=== PATIENT | female | born 1945 | race Hispanic/Latino ===

== ENCOUNTER 2016-08-16 08:51 | Inpatient (IN) | payer MEDICARE, BC ==
--- NOTE | 2016-08-16 09:07 | ED PDOC ---
Arrival/HPI - General Time Seen by Provider: 08/16/16 08:52 Historian: Patient - History of Present Illness Narrative History of Present Illness (Text): 08/16/16 09:06 This 70 yo female with pmh diverticulitis, renal stone, presents to this ED c/o left flank pain x 7 days. Patient stated pain started left upper flank pain, but it has radiated to her left pelvis. Patient noted mild soft BM. Denies fever, rectal bleeding, sob, cp, rash, or urinary symptoms. Time/Duration: 1 week Quality: Aching Context: Home Past Medical History - Provider Review Nursing Documentation Reviewed: Yes - Tetanus Immunization Tetanus Immunization: Unknown - Cardiac Hx Pacemaker: No - Pulmonary Hx Chronic Obstructive Pulmonary Disease (COPD): Yes - Neurological Hx Paralysis: No - Hematological/Oncological Hx Blood Transfusions: No Hx Blood Transfusion Reaction: No - Musculoskeletal/Rheumatological Hx Musculoskeletal Disorders: Yes (RA) - Psychiatric Hx Emotional Abuse: No Hx Physical Abuse: No Hx Substance Use: No - Surgical History Hx Orthopedic Surgery: Yes (rt knee replacement) - Anesthesia Hx Anesthesia Reactions: No Hx Malignant Hyperthermia: No - Suicidal Assessment Feels Threatened In Home Enviroment: No Family/Social History - Physician Review Nursing Documentation Reviewed: Yes Family/Social History: No Known Family HX Smoking Status: Former Smoker Hx Alcohol Use: No Hx Substance Use: No Hx Substance Use Treatment: No Allergies/Home Meds Allergies/Adverse Reactions: Allergies ciprofloxacin [From Cipro] Allergy (Verified 08/16/16 14:38) RASH ciprofloxacin HCl [From Cipro] Allergy (Verified 08/16/16 14:38) RASH FISH Allergy (Verified 08/16/16 14:38) ANAPHYLAXIS iodine Allergy (Verified 08/16/16 14:38) ANAPHYLAXIS levofloxacin Allergy (Verified 08/16/16 14:38) ANAPHYLAXIS Penicillins Allergy (Verified 08/16/16 14:38) ANAPHYLAXIS shellfish derived Allergy (Verified 08/16/16 14:38) ANAPHYLAXIS Home Medications: Home Meds Medication Instructions Recorded Confirmed Tofacitinib Citrate [Xeljanz] 5 mg PO BID 10/19/13 08/16/16 Beclomethasone Dipropionate [Qvar 2 puff IH BID 08/16/16 08/16/16 80 mcg] Levalbuterol Tartrate [Xopenex Hfa] 2 puff IH QID 08/16/16 08/16/16 Levothyroxine [Synthroid] 112 mcg PO DAILY 08/16/16 08/16/16 Metoprolol Succinate 50 mg PO DAILY 08/16/16 08/16/16 Review of Systems - Review of Systems Constitutional: Normal. absent: Fatigue, Weight Change, Fevers Eyes: Normal ENT: Normal Respiratory: Normal Cardiovascular: Normal Gastrointestinal: Abdominal Pain, Diarrhea, Nausea. absent: Vomiting Genitourinary Female: Normal. absent: Dysuria, Frequency, Hematuria, Vaginal Bleeding, Vaginal Discharge Musculoskeletal: Normal. absent: Back Pain Skin: Normal Neurological: Normal Endocrine: Normal Hemo/Lymphatic: Normal Psychiatric: Normal Physical Exam Vital Signs Temp Pulse Resp BP Pulse Ox 08/16/16 13:17 102 H 18 142/74 98 08/16/16 12:38 102 H 142/74 08/16/16 09:04 97.7 F 104 H 18 142/113 H 99 Temperature: Afebrile Blood Pressure: Hypertensive Pulse: Tachycardic Respiratory Rate: Normal Appearance: Positive for: Well-Appearing, Non-Toxic, Comfortable Pain Distress: None Mental Status: Positive for: Alert and Oriented X 3 - Systems Exam Head: Present: Atraumatic, Normocephalic Pupils: Present: PERRL Extroacular Muscles: Present: EOMI Conjunctiva: Present: Normal Mouth: Present: Moist Mucous Membranes Neck: Present: Normal Range of Motion Respiratory/Chest: Present: Clear to Auscultation, Good Air Exchange. No: Respiratory Distress, Accessory Muscle Use Cardiovascular: Present: Regular Rate and Rhythm, Normal S1, S2. No: Murmurs Abdomen: Present: Tenderness ((+) mild LLQ tenderness), Normal Bowel Sounds. No : Distention, Peritoneal Signs, Rebound, Guarding, McBurney's Point Tender, Rovsing's Sign Present Back: Present: Normal Inspection. No: CVA Tenderness Upper Extremity: Present: Normal Inspection, Normal ROM, NORMAL PULSES, Neurovascularly Intact, Capillary Refill < 2s. No: Cyanosis, Edema Lower Extremity: Present: Normal Inspection, NORMAL PULSES, Normal ROM, Neurovascularly Intact, Capillary Refill < 2 s. No: Edema, CALF TENDERNESS Neurological: Present: GCS=15, CN II-XII Intact, Speech Normal, Motor Func Grossly Intact, Normal Sensory Function, Normal Cerebellar Funct, Norm Deep Tendon Reflexes, Gait Normal, Memory Normal Skin: Present: Warm, Dry, Normal Color. No: Rashes Psychiatric: Present: Alert, Oriented x 3, Normal Insight, Normal Concentration Medical Decision Making ED Course and Treatment: 08/16/16 12:[address] Lovelace Hospitalist who agrees with plan for admission. He is aware patient has allergies to PCN, and fluroquinolones Re-evaluation Time: 12:06 Reassessment Condition: Re-examined, Improving,but remains with symptoms - Lab Interpretations Lab Results: 08/16/16 09:51 08/16/16 09:51 Lab Results 08/16/16 09:51: WBC 9.6 D, RBC 4.60, Hgb 13.9, Hct 40.5, MCV 88.0, MCH 30.2, MCHC 34.3, RDW 13.3, Plt Count 359, MPV 9.5, Gran % 80.2 H, Lymph % (Auto) 11.2 L, [place] % (Auto) 6.7 H, Eos % (Auto) 1.7, Baso % (Auto) 0.2, Gran # 7.70 H, Lymph # 1.1 L, [place] # 0.6, Eos # 0.2, Baso # 0.02, Sodium 143, Potassium 3.8, Chloride 103, Carbon Dioxide 28, Anion Gap 16, BUN 12, Creatinine 0.7, Est GFR ( Amer) > 60, Est GFR (Non-Af Amer) > 60, Random Glucose 127 H, Calcium 10.2, Total Bilirubin 0.6, AST 27, ALT 30, Alkaline Phosphatase 95, Total Protein 8.2, Albumin 4.3, Globulin 3.9, Albumin/Globulin Ratio 1.1, Lipase 54 08/16/16 09:45: Urine Color Yellow, Urine Appearance Clear, Urine pH 6.5, Ur Specific [place] 1.020, Urine Protein Negative, Urine Glucose (UA) Negative, Urine Ketones Negative, Urine Blood Trace-intact H, Urine Nitrate Negative, Urine Bilirubin Negative, Urine Urobilinogen 0.2, Ur Leukocyte Esterase Trace H , Urine RBC 0 - 2, Urine WBC 0 - 2, Ur Epithelial Cells 1 - 3 I have reviewed the lab results: Yes Interpretation: No clinic. lab abnormalty - RAD Interpretation Narrative RAD Interpretations (Text): 08/16/16 11:33 Accession No. : [id number] Patient Name / ID : GABRIELA HARRISON / [id number] Exam Date : 08/16/2016 10:17:37 ( Approved ) Study Comment : Sex / Age : F / [id number] Creator : Moy Alfred MD Dictator : Moy Alfred MD Experimental Machinist : Youth Specialist : Moy Alfred MD Approver2 : Report Date : 08/16/2016 11:10:13 My Comment : PROCEDURE: CT Abdomen and Pelvis without intravenous contrast HISTORY: left flank pain COMPARISON: None. TECHNIQUE: Without contrast.. Contrast Dose: Radiation dose: Total exam DLP = 907 mGy-cm. This CT exam was performed using one or more of the following dose reduction techniques: Automated exposure control, adjustment of the mA and/or kV according to patient size, and/or use of iterative reconstruction technique. FINDINGS: LOWER THORAX: Unremarkable. LIVER: Unremarkable. No gross lesion or ductal dilatation. GALLBLADDER AND BILE DUCTS: Unremarkable. PANCREAS: Unremarkable. No gross lesion or ductal dilatation. SPLEEN: Unremarkable. ADRENALS: Unremarkable. No mass. KIDNEYS AND URETERS: Unremarkable. No hydronephrosis. No solid mass. VASCULATURE: Unremarkable. No aortic aneurysm. BOWEL: There is acute diverticulitis of the sigmoid colon. Inflammatory changes are seen in the adjacent fat planes. Finding is best seen on image 131. There is no evidence of abscess or free air. APPENDIX: Unremarkable. Normal appendix. PERITONEUM: Unremarkable. No free fluid. No free air. LYMPH NODES: Unremarkable. No enlarged lymph nodes. BLADDER: Unremarkable. REPRODUCTIVE: There is a fatty density mass in the left side of the pelvis measuring 5.1 x 6.5 cm. This is consistent with a dermoid. BONES: No acute fracture. OTHER FINDINGS: None. IMPRESSION: Acute diverticulitis of the sigmoid colon Left-sided dermoid 08/16/16 11:42 Radiology Orders: 08/16/16 09:22 ABD & PELVIS W/O PO OR IV CONT [CT] Stat 08/16/16 11:41 CHEST PORTABLE [RAD] Stat - EKG Interpretation Interpreted by ED Physician: Yes (NSR @ [address] changes) Type: 12 lead EKG Comparison: No previous EKG avail. - Medication Orders Current Medication Orders: Acetaminophen (Tylenol 325mg Tab) 650 mg PO Q6 PRN PRN Reason: Pain, moderate (4-7) Acetaminophen (Tylenol 325mg Tab) 650 mg PO Q6 PRN PRN Reason: Fever >100.4 F Albuterol/Ipratropium (Duoneb 3 Mg/0.5 Mg (3 Ml) Ud) 3 ml IH [id number] PRN PRN Reason: Shortness of Breath Sodium Chloride (Sodium Chloride 0.45%) 1,000 mls @ 100 mls/hr IV .Q10H CLAUDINE Last Admin: 08/17/16 13:11 Dose: 100 MLS/HR eMAR Start Stop Document 08/17/16 13:11 SD (Rec: 08/17/16 13:11 SD [id number]) Intravenous Solution Start Date 08/17/16 Start Time 13:11 Aztreonam (Azactam 1 Gm) 100 mls @ 100 mls/hr IVPB Q8 CLAUDINE PRN Reason: Protocol Stop: 08/22/16 22:59 Last Admin: 08/18/16 05:16 Dose: 100 MLS/HR eMAR Start Stop Document 08/18/16 05:16 IMT (Rec: 08/18/16 05:17 [facility] Intravenous Solution Start Date 08/18/16 Start Time 05:17 End Date 08/18/16 End time 06:17 Total Infusion Time 60 Metronidazole (Flagyl) 100 mls @ 100 mls/hr IVPB Q8 CLAUDINE PRN Reason: Protocol Last Admin: 08/18/16 06:34 Dose: 100 MLS/HR eMAR Start Stop Document 08/18/16 06:34 IMT (Rec: 08/18/16 06:34 [facility] Intravenous Solution Start Date 08/18/16 Start Time 06:34 End Date 08/18/16 End time 07:34 Total Infusion Time 60 Insulin Human Lispro (Humalog Low) 0 units SC ACHS CLAUDINE PRN Reason: Protocol Last Admin: 08/18/16 11:33 Dose: Not Given Non-Admin Reason: Blood Sugar Parameter MAR Blood Glucose Document 08/18/16 11:33 SD (Rec: 08/18/16 11:33 SD [id number]) Blood Glucose Finger Stick Blood Glucose (70-120) 89 Levothyroxine Sodium (Synthroid) 112 mcg PO DAILY [facility] Last Admin: 08/18/16 09:49 Dose: 112 MCG Metoprolol Succinate (Toprol Xl) 50 mg PO DAILY [facility] Last Admin: 08/18/16 09:49 Dose: 50 MG MAR Pulse and Blood Pressure Document 08/18/16 09:49 SD (Rec: 08/18/16 09:49 SD [id number]) Pulse Pulse Rate (60-90) 78 Blood Pressure Blood Pressure (100/60-150/90) 108/61 Morphine Sulfate (Morphine) 2 mg IVP Q4H PRN PRN Reason: Pain, severe (8-10) Non-Formulary Medication (Beclomethasone Dipropionate [Qvar 80 Mcg]) 2 puff IH BID [facility] Last Admin: 08/18/16 09:46 Dose: Non-Formulary Medication (Levalbuterol Tartrate [Xopenex Hfa]) 2 puff IH QID [facility] Last Admin: 08/18/16 09:47 Dose: Non-Formulary Medication (Tofacitinib Citrate [Xeljanz]) 5 mg PO BID [facility] Last Admin: 08/18/16 10:02 Dose: 5 MG Ondansetron HCl (Zofran Inj) 4 mg IVP Q6 PRN PRN Reason: Nausea/Vomiting Pantoprazole Sodium (Protonix Ec Tab) 40 mg PO 0730,1630 [facility] Last Admin: 08/18/16 08:24 Dose: 40 MG Discontinued Medications Sodium Chloride (Sodium Chloride 0.9%) 500 mls @ 999 mls/hr IV .Q31M STA Stop: 08/16/16 09:53 Last Admin: 08/16/16 10:02 Dose: 999 MLS/HR eMAR Start Stop Document 08/16/16 10:02 SS (Rec: 08/16/16 10:37 SS [id number]) Intravenous Solution Start Date 08/16/16 Start Time 10:37 End Date 08/16/16 End time 11:07 Total Infusion Time 30 Metronidazole (Flagyl) 100 mls @ 100 mls/hr IVPB STAT STA PRN Reason: Protocol Stop: 08/16/16 12:39 Last Admin: 08/16/16 12:35 Dose: 100 MLS/HR eMAR Start Stop Document 08/16/16 12:35 SS (Rec: 08/16/16 12:37 SS [id number]) Intravenous Solution Start Date 08/16/16 Start Time 12:36 End Date 08/16/16 End time 13:36 Total Infusion Time 60 Ketorolac Tromethamine (Toradol) 15 mg IVP STAT STA Stop: 08/16/16 09:24 Last Admin: 08/16/16 10:37 Dose: Not Given Non-Admin Reason: Patient Refused Metoprolol Succinate (Toprol Xl) 50 mg PO STAT STA Stop: 08/16/16 12:10 Last Admin: 08/16/16 12:38 Dose: 50 MG MAR Pulse and Blood Pressure Document 08/16/16 12:38 SS (Rec: 08/16/16 12:53 SS [id number]) Pulse Pulse Rate (60-90) 102 Blood Pressure Blood Pressure (100/60-150/90) 142/74 Morphine Sulfate (Morphine) 2 mg IVP STAT STA Stop: 08/16/16 12:11 Last Admin: 08/16/16 12:37 Dose: 2 MG MAR Pain Assessment Document 08/16/16 12:37 SS (Rec: 08/16/16 12:38 SS [id number]) Pain Reassessment Is this a pain reassessment? No Sleep Is patient sleeping during reassessment? No Presence of Pain Presence of Pain Yes Pain Scale Used Pain Scale Used Numeric Location Left, Right or Bilateral Bilateral Upper or Lower Lower Pain Location Body Site Abdomen Description Description Cramping Pain Behavior Rubbing Site Facial Grimacing IVP Administration Document 08/16/16 12:37 SS (Rec: 08/16/16 12:38 SS [id number]) Charges for Administration # of IVP Administrations 1 Non-Formulary Medication (Tofacitinib Citrate [Xeljanz]) 5 mg PO BID CLAUDINE Last Admin: 08/16/16 17:26 Dose: Ondansetron HCl (Zofran Inj) 4 mg IVP STAT STA Stop: 08/16/16 09:24 Last Admin: 08/16/16 10:37 Dose: Not Given Non-Admin Reason: Patient Refused Ondansetron HCl (Zofran Inj) 4 mg IVP ONCE ONE Stop: 08/16/16 12:11 Last Admin: 08/16/16 12:37 Dose: 4 MG IVP Administration Document 08/16/16 12:37 SS (Rec: 08/16/16 12:37 SS [id number]) Charges for Administration # of IVP Administrations 1 Pneumococcal Polyvalent Vaccine (Pneumovax 23 Vaccine) 0.5 ml IM .ONCE ONE Stop: 08/16/16 16:20 Disposition/Present on Arrival - Present on Arrival Any Indicators Present on Arrival: No History of DVT/PE: No History of Uncontrolled Diabetes: No Urinary Catheter: No History Surgical Site Infection Following: None - Disposition Have Diagnosis and Disposition been Completed?: Yes Diagnosis: Diverticulitis, Intractable abdominal pain Disposition: HOSPITALIZED Disposition Time: 12:07 Patient Plan: Admission Patient Problems: Current Active Problems Problem Status Diagnosed Diverticulitis Acute Intractable abdominal pain Acute Condition: STABLE
[2016-08-16 09:18] VITALS: BMI 35.5
[2016-08-16] MEDS ORDERED: Sodium Chloride 0.9% 500 ML IV STA (09:23)
[2016-08-16 09:53] LABS: ADD MANUAL DIFF? NO
[2016-08-16 09:55] LABS: BASO # 0.02 K/mm3 (0.0-2.0); BASO % 0.2 % (0.0-3.0); EOS # 0.2 (0.0-0.7); EOS % 1.7 % (1.5-5.0); GRAN % 80.2 % (50.0-68.0); HEMATOCRIT 40.5 % (36.0-48.0); LYMPH # 1.1 (1.2-3.4); LYMPH % 11.2 % (22.0-35.0); MEAN CORPUSCULAR HEMOGLOBIN 30.2 pg (25.0-35.0); MEAN CORPUSCULAR HGB CONC 34.3 g/dl (31.0-37.0); MEAN PLATELET VOLUME 9.5 fl (7.0-11.0); MONO # 0.6 (0.1-0.6); MONO % 6.7 % (1.0-6.0); PLATELET COUNT 359 10^3/uL (120.0-450.0); RED CELL DISTRIBUTION WIDTH 13.3 % (11.5-14.5); WHITE BLOOD COUNT 9.6 10^3/ul (4.5-11.0)
[2016-08-16 10:07] LABS: PH,URINE 6.5 (4.7-8.0); URINE BILIRUBIN NEGATIVE (NEGATIVE); URINE BLOOD TRACE-INTACT (NEGATIVE); URINE GLUCOSE (UA) NEGATIVE (NEGATIVE); URINE KETONE NEGATIVE (NEGATIVE); URINE LEUKOCYTE ESTERASE TRACE Leu/uL (NEGATIVE); URINE PROTEIN NEGATIVE mg/dL (<30 mg/dL); URINE UROBILINOGEN 0.2 E.U./dL (<1 E.U./dL)
[2016-08-16 10:08] LABS: URINE APPEARANCE CLEAR (CLEAR); URINE COLOR YELLOW (YELLOW)
[2016-08-16 10:09] LABS: ALB/GLOB RATIO 1.1 (1.1-1.8); ALKALINE PHOSPHATASE 95 U/L (38-133); ALT/SGPT 30 U/L (7-56); AST/SGOT 27 U/L (15-39); BILIRUBIN,TOTAL 0.6 mg/dL (0.2-1.3); BLOOD UREA NITROGEN 12 mg/dL (7-21); CALCIUM 10.2 mg/dL (8.4-10.5); CARBON DIOXIDE 28 mmol/L (21-33); CHLORIDE 103 mmol/L (95-110); GFR AFRICAN-AMERICAN > 60; GLUCOSE,RANDOM 127 mg/dL (70-110); LIPASE 54 U/L (23-300); POTASSIUM 3.8 mmol/L (3.6-5.0); SODIUM 143 mmol/L (132-148); TOTAL PROTEIN 8.2 g/dL (5.8-8.3)
[2016-08-16 10:16] LABS: URINE RBC 0 - 2 /hpf (0-2); URINE WBC 0 - 2 /hpf (0-6)
--- NOTE | 2016-08-16 11:11 | CT ---
PROCEDURE: CT Abdomen and Pelvis without intravenous contrast HISTORY: left flank pain COMPARISON: None. TECHNIQUE: Without contrast.. Contrast Dose: Radiation dose: Total exam DLP = 907 mGy-cm. This CT exam was performed using one or more of the following dose reduction techniques: Automated exposure control, adjustment of the mA and/or kV according to patient size, and/or use of iterative reconstruction technique. FINDINGS: LOWER THORAX: Unremarkable. LIVER: Unremarkable. No gross lesion or ductal dilatation. GALLBLADDER AND BILE DUCTS: Unremarkable. PANCREAS: Unremarkable. No gross lesion or ductal dilatation. SPLEEN: Unremarkable. ADRENALS: Unremarkable. No mass. KIDNEYS AND URETERS: Unremarkable. No hydronephrosis. No solid mass. VASCULATURE: Unremarkable. No aortic aneurysm. BOWEL: There is acute diverticulitis of the sigmoid colon. Inflammatory changes are seen in the adjacent fat planes. Finding is best seen on image 131. There is no evidence of abscess or free air. APPENDIX: Unremarkable. Normal appendix. PERITONEUM: Unremarkable. No free fluid. No free air. LYMPH NODES: Unremarkable. No enlarged lymph nodes. BLADDER: Unremarkable. REPRODUCTIVE: There is a fatty density mass in the left side of the pelvis measuring 5.1 x 6.5 cm. This is consistent with a dermoid. BONES: No acute fracture. OTHER FINDINGS: None. IMPRESSION: Acute diverticulitis of the sigmoid colon Left-sided dermoid
[2016-08-16] MEDS ORDERED: metroNIDAZOLE IV 500 mg/100 ml 100 ML IVPB STA (11:40)
[2016-08-16] MEDS ORDERED: Metoprolol Succinate 50 mg XL Tab PO STA (12:09)
[2016-08-16] MEDS ORDERED: Morphine 2 mg/ml ISec IVP STA (12:10)
--- NOTE | 2016-08-16 12:39 | RAD ---
HISTORY: admission COMPARISON: 04/08/2015 FINDINGS: LUNGS: No active pulmonary disease. PLEURA: No significant pleural effusion identified, no pneumothorax apparent. CARDIOVASCULAR: Probable mild left ventricular enlargement. Aortic knob atherosclerotic vascular calcifications of mild tortuosity. Not significantly changed OSSEOUS STRUCTURES: Thoracic spondylosis VISUALIZED UPPER ABDOMEN: Normal. OTHER FINDINGS: None. IMPRESSION: No active disease.
[2016-08-16] MEDS ORDERED: Morphine 4 mg/ml ISec IVP PRN (14:17)
--- NOTE | 2016-08-16 14:36 | CP.PCM.HP ---
<Bhavin Denny - Last Filed: 08/16/16 16:20> History of Present Illness - History of Present Illness History of Present Illness: HPI: 70 yo F w/ PMHx of HTN, RA, DM, COPD and diverticulitis presents to the ED with abdominal pain that started 10 days ago. Patient reports it began in the upper gastric region but as of yesterday its more so in the lower abdomen/ pelvic region. Pt tried clear liquid diet as this has helped with diverticulitis before; it provided temporary relief. Pt reports eating a regular meal for dinner last night and overnight, abdominal pain worsened. Pt has mild nausea associated with the abdominal pain. Pt also reports headache, which the patient attributes to lack of caffeine intake today. Patient had soft BM in the AM. She denies any chills, chest pain, dysuria, constipation, diarrhea , vomiting. PMHx: HTN, RA, hypothyroidism, diverticulosis, kidney stone, dermoid cyst, hyperparathyroidism, lactose intolerance, DM II, COPD PSHx/hosp: fibrous tumor removed 1995, total knee replacement 2010 Allergies: PCN, levoquin, ciprofloxacin, iodine, shellfish, fish Fam hx: mom COPD, DM. dad- DM Social hx: former smoker quit in 1999, 1.5ppd for 41 yrs (62 pack years), denies EtOH, denies illicit drugs. Drinks 16oz of coffee daily. Lives with . Retired, worked with [employer]. Meds: xopenex, Qvar, tofacitinib citrate, metoprolol, synthroid PMD: Dr. Schultz Present on Admission - Present on Admission Any Indicators Present on Admission: No Review of Systems - Constitutional Constitutional: absent: Chills, Fever - EENT Eyes: absent: Change in Vision, Diplopia Ears: absent: Decreased Hearing Nose/Mouth/Throat: absent: Dysphagia, Sore Throat - Cardiovascular Cardiovascular: absent: Chest Pain, Dyspnea, Edema - Respiratory Respiratory: absent: Cough, Dyspnea - Gastrointestinal Gastrointestinal: Abdominal Pain, Nausea. absent: Cramping, Diarrhea, Hematemesis, Hematochezia, Vomiting - Genitourinary Genitourinary: absent: Dysuria - Reproductive: Female Reproductive:Female: Post Menopausal - Menstruation Menstruation: Post Menopausal - Musculoskeletal Musculoskeletal: absent: Muscle Weakness, Numbness, Tingling - Neurological Neurological: absent: Dizziness, Tingling, Weakness - Psychiatric Psychiatric: absent: Anxiety, Depression - Endocrine Endocrine: absent: Change in Body Appearance Past Patient History - Tetanus Immunizations Tetanus Immunization: Unknown - Past Social History Smoking Status: Former Smoker Alcohol: None Drugs: Denies Home Situation {Lives}: With Family - CARDIAC Hx Pacemaker: No - PULMONARY Hx Chronic Obstructive Pulmonary Disease (COPD): Yes - NEUROLOGICAL Hx Paralysis: No - HEMATOLOGICAL/ONCOLOGICAL Hx Blood Transfusions: No Hx Blood Transfusion Reaction: No - MUSCULOSKELETAL/RHEUMATOLOGICAL Hx Musculoskeletal Disorders: Yes (RA) - PSYCHIATRIC Hx Emotional Abuse: No Hx Physical Abuse: No Hx Substance Use: No - SURGICAL HISTORY Hx Orthopedic Surgery: Yes (rt knee replacement) - ANESTHESIA Hx Anesthesia Reactions: No Hx Malignant Hyperthermia: No Meds Allergies/Adverse Reactions: Allergies Allergy/AdvReac Type Severity Reaction Status Date / Time ciprofloxacin [From Cipro] Allergy RASH Verified 08/16/16 14:38 ciprofloxacin HCl Allergy RASH Verified 08/16/16 14:38 [From Cipro] FISH Allergy ANAPHYLAXIS Verified 08/16/16 14:38 iodine Allergy ANAPHYLAXIS Verified 08/16/16 14:38 levofloxacin Allergy ANAPHYLAXIS Verified 08/16/16 14:38 Penicillins Allergy ANAPHYLAXIS Verified 08/16/16 14:38 shellfish derived Allergy ANAPHYLAXIS Verified 08/16/16 14:38 Physical Exam - Head Exam Head Exam: ATRAUMATIC, NORMOCEPHALIC - Eye Exam Eye Exam: EOMI, Normal appearance, PERRL Pupil Exam: NORMAL ACCOMODATION, PERRL - ENT Exam ENT Exam: Mucous Membranes Moist, Normal Oropharynx (dentures) - Neck Exam Neck exam: Positive for: Normal Inspection. Negative for: Tenderness, Thyromegaly - Respiratory Exam Respiratory Exam: Clear to Auscultation Bilateral, NORMAL BREATHING PATTERN. absent: Rales, Rhonchi, Wheezes - Cardiovascular Exam Cardiovascular Exam: REGULAR RHYTHM, +S1, +S2. absent: Gallop, Rubs, Systolic Murmur - GI/Abdominal Exam GI & Abdominal Exam: Guarding (left lower quadrant), Soft, Tenderness (left upper and lower quadrant) - Rectal Exam Rectal Exam: Deferred - Extremities Exam Extremities exam: Positive for: normal capillary refill, normal inspection, pedal pulses present. Negative for: pedal edema, tenderness - Back Exam Back exam: NORMAL INSPECTION. absent: rash noted, tenderness - Neurological Exam Neurological exam: Alert, CN II-XII Intact, Reflexes Normal - Psychiatric Exam Psychiatric exam: Normal Affect, Normal Mood - Skin Skin Exam: Dry, Intact, Normal Color, Warm Results - Vital Signs Recent Vital Signs: Last Vital Signs Temp 97.7 F 08/16/16 09:04 Pulse 102 H 08/16/16 13:17 Resp 18 08/16/16 13:17 BP 142/74 08/16/16 13:17 Pulse Ox 98 08/16/16 13:17 - Labs Result Diagrams: 08/16/16 09:51 08/16/16 09:51 Assessment & Plan - Assessment and Plan (Free Text) Assessment: 70 yo F w/ PMHx of HTN, RA, DM, COPD and diverticulitis presents to the ED with abdominal pain that started 10 days ago and found to have diverticulitis on abdominal CT. Plan: 1) Diverticulitis * CT abd/pel: acute diverticulitis of the sigmoid colon. Inflammatory changes in adjacent fat planes. * CXR: no active disease * ID consulted: aztreonam and flagyl IV as per Dr. García * GI consulted * Zofran to control nausea * Liquid diet * pain control with morphine and Tylenol * IV fluids @100 * f/u blood and urine cultures 2) Hx of COPD * continue home Qvar, xopenex * duoneb prn 3)HTN * BP 142/113 in the ER * continue metoprolol * EKG normal sinus rhythm 4) DM * insulin sliding scale regular * regular accuchecks 5) PPX * scd's * protonix Assessment and plan discussed with attending physician. <Radu NEWELL,Viry - Last Filed: 08/19/16 10:38> Results - Vital Signs Recent Vital Signs: Last Vital Signs Temp 97.9 F 08/19/16 08:00 Pulse 73 08/19/16 09:00 Resp 20 08/19/16 08:00 BP 119/62 08/19/16 09:00 Pulse Ox 94 L 08/19/16 08:00 - Labs Result Diagrams: 08/19/16 05:00 08/19/16 06:48 Labs: Laboratory Results - last 24 hr 08/18/16 08/19/16 08/19/16 16:02 05:00 06:48 WBC 5.2 RBC 4.00 Hgb 11.8 L Hct 35.2 L MCV 88.0 MCH 29.5 MCHC 33.5 RDW 13.3 Plt Count 323 MPV 9.3 Gran % 67.7 Lymph % (Auto) 16.6 L [place] % (Auto) 11.0 H Eos % (Auto) 4.3 Baso % (Auto) 0.4 Gran # 3.50 Lymph # 0.9 L [place] # 0.6 Eos # 0.2 Baso # 0.02 Sodium 141 Potassium 3.7 Chloride 104 Carbon Dioxide 28 Anion Gap 13 BUN 9 Creatinine 0.7 Est GFR ( Amer) > 60 Est GFR (Non-Af Amer) > 60 POC Glucose (mg/dL) 115 H Random Glucose 99 Calcium 8.9 Attending/Attestation - Attestation I have personally seen and examined this patient.: Yes I have fully participated in the care of the patient.: Yes I have reviewed all pertinent clinical information: Yes Notes (Text): Patient was seen and examined with medical microbiologist .Agreed with resident assessment and plan. 69 F with PMH of COPD, HTN,NIDDM with recurrent sigmoid diverticulitis, Patient is allergic to Pennicillin and Cipro, we will start patient on IV on Azactum and Flagyl, We will get ID and GI consulted. Management plan was discussed in detail with patient Education was provided.
[2016-08-16] MEDS ORDERED: Meropenem 1g/NS 100mL IVPB 100 ML IVPB SCH (14:45)
[2016-08-16] MEDS: Sodium Chloride 0.45% 1,000 ML IV SCH (15:00)
--- NOTE | 2016-08-16 15:23 | CP.PCM.CON ---
History of Present Illness - History of Present Illness History of Present Illness: Infectious Disease Consultation: August 16, 2016 70 yo female I last saw in September 2013 presents to [facility] ER for left flank pain for the past 7 days. She denies fevers, chills, nausea, vomiting, diarrhea. Currently afebrile and no appreciable leukocytosis. Urinalysis is NOT suggestive of a UTI. Chest X-ray does not display any pneumonia. CT of the Abdomen suggests acute diverticulitis. Difficulty in antibiotic treatment due to the multiple allergies. PMHx: diverticulitis, peritonitis, diabetes mellitus, chronic obstructive pulmonary disease, Gastroesophageal reflux disease, and hypertension PSHx: Total knee replacement and multiple uterine fibroid removals. Allergies: Multiple - Cipro, fish, Iodine, PCN, shellfish. Anaphylactic shock with PCN. Rash at throat with Fluoroquinolones. Social Hx: No tobacco, EtOH, or illicit drug use Active Medications Acetaminophen (Tylenol 325mg Tab) 650 mg PO Q6 PRN PRN Reason: Pain, moderate (4-7) Acetaminophen (Tylenol 325mg Tab) 650 mg PO Q6 PRN PRN Reason: Fever >100.4 F Sodium Chloride (Sodium Chloride 0.45%) 1,000 mls @ 100 mls/hr IV .Q10H CLAUDINE Meropenem 1g/NS 100mL IVPB (Meropenem 1g/Ns 100ml Ivpb) 100 mls @ 100 mls/hr IVPB Q8 CLAUD[facility] PRN Reason: Protocol Stop: 08/16/16 22:59 Levothyroxine Sodium (Synthroid) 112 mcg PO DAILY [facility] Metoprolol Succinate (Toprol Xl) 50 mg PO DAILY [facility] Morphine Sulfate (Morphine) 2 mg IVP Q4H PRN PRN Reason: Pain, severe (8-10) Non-Formulary Medication (Beclomethasone Dipropionate [Qvar 80 Mcg]) 2 puff IH BID [facility] Non-Formulary Medication (Levalbuterol Tartrate [Xopenex Hfa]) 2 puff IH QID [facility] Non-Formulary Medication (Tofacitinib Citrate [Xeljanz]) 5 mg PO BID [facility] Ondansetron HCl (Zofran Inj) 4 mg IVP Q6 PRN PRN Reason: Nausea/Vomiting Pantoprazole Sodium (Protonix Ec Tab) 40 mg PO 0730,1630 [facility] Family Hx: none given ROS: No fevers, chills, headaches, dizziness, chest pain, melena, hematuria, hematemesis, hematochezia, depression, anxiety. Patient with abdominal pain. Past Patient History - Tetanus Immunizations Tetanus Immunization: Unknown - Past Social History Smoking Status: Former Smoker - CARDIAC Hx Pacemaker: No - PULMONARY Hx Chronic Obstructive Pulmonary Disease (COPD): Yes - NEUROLOGICAL Hx Paralysis: No - HEMATOLOGICAL/ONCOLOGICAL Hx Blood Transfusions: No Hx Blood Transfusion Reaction: No - MUSCULOSKELETAL/RHEUMATOLOGICAL Hx Musculoskeletal Disorders: Yes (RA) - PSYCHIATRIC Hx Emotional Abuse: No Hx Physical Abuse: No Hx Substance Use: No - SURGICAL HISTORY Hx Orthopedic Surgery: Yes (rt knee replacement) - ANESTHESIA Hx Anesthesia Reactions: No Hx Malignant Hyperthermia: No Meds Allergies/Adverse Reactions: Allergies Allergy/AdvReac Type Severity Reaction Status Date / Time ciprofloxacin [From Cipro] Allergy RASH Verified 08/16/16 14:38 ciprofloxacin HCl Allergy RASH Verified 08/16/16 14:38 [From Cipro] FISH Allergy ANAPHYLAXIS Verified 08/16/16 14:38 iodine Allergy ANAPHYLAXIS Verified 08/16/16 14:38 levofloxacin Allergy ANAPHYLAXIS Verified 08/16/16 14:38 Penicillins Allergy ANAPHYLAXIS Verified 08/16/16 14:38 shellfish derived Allergy ANAPHYLAXIS Verified 08/16/16 14:38 - Medications Medications: Current Medications Acetaminophen (Tylenol 325mg Tab) 650 mg PO Q6 PRN PRN Reason: Pain, moderate (4-7) Acetaminophen (Tylenol 325mg Tab) 650 mg PO Q6 PRN PRN Reason: Fever >100.4 F Sodium Chloride (Sodium Chloride 0.45%) 1,000 mls @ 100 mls/hr IV .Q10H [facility]UD[facility] Meropenem 1g/NS 100mL IVPB (Meropenem 1g/Ns 100ml Ivpb) 100 mls @ 100 mls/hr IVPB Q8 CLAUDINE PRN Reason: Protocol Stop: 08/16/16 22:59 Levothyroxine Sodium (Synthroid) 112 mcg PO DAILY [facility] Metoprolol Succinate (Toprol Xl) 50 mg PO DAILY [facility] Morphine Sulfate (Morphine) 2 mg IVP Q4H PRN PRN Reason: Pain, severe (8-10) Non-Formulary Medication (Beclomethasone Dipropionate [Qvar 80 Mcg]) 2 puff IH BID [facility] Non-Formulary Medication (Levalbuterol Tartrate [Xopenex Hfa]) 2 puff IH QID [facility] Non-Formulary Medication (Tofacitinib Citrate [Xeljanz]) 5 mg PO BID [facility] Ondansetron HCl (Zofran Inj) 4 mg IVP Q6 PRN PRN Reason: Nausea/Vomiting Pantoprazole Sodium (Protonix Ec Tab) 40 mg PO 0730,1630 [facility] Physical Exam - Constitutional Appears: Non-toxic, No Acute Distress - Head Exam Head Exam: ATRAUMATIC, NORMOCEPHALIC - Eye Exam Eye Exam: EOMI, PERRL Pupil Exam: NORMAL ACCOMODATION, PERRL - ENT Exam ENT Exam: Mucous Membranes Moist, Normal External Ear Exam, TM's Normal Bilaterally - Neck Exam Neck exam: Positive for: Full Rom, Normal Inspection - Respiratory Exam Respiratory Exam: Clear to Auscultation Bilateral, NORMAL BREATHING PATTERN. absent: Rales, Rhonchi, Wheezes - Cardiovascular Exam Cardiovascular Exam: REGULAR RHYTHM, RRR, +S1, +S2 - GI/Abdominal Exam GI & Abdominal Exam: Normal Bowel Sounds, Soft, Tenderness. absent: Diminished Bowel Sounds - Extremities Exam Extremities exam: Positive for: full ROM, normal inspection - Neurological Exam Neurological exam: Alert, CN II-XII Intact, Oriented x3 - Psychiatric Exam Psychiatric exam: Normal Affect, Normal Mood - Skin Skin Exam: Intact, Normal Color Results - Vital Signs Recent Vital Signs: Last Vital Signs Temp 97.7 F 08/16/16 09:04 Pulse 102 H 08/16/16 13:17 Resp 18 08/16/16 13:17 BP 142/74 08/16/16 13:17 Pulse Ox 98 08/16/16 13:17 - Labs Result Diagrams: 08/16/16 09:51 08/16/16 09:51 Assessment & Plan - Assessment and Plan (Free Text) Assessment: 70 yo female with previous hospitalizations in the distant past presenting with diverticulitis. Patient with multiple antibiotic allergies. Would suggest use of aztreonam for this patient as meropenem is a carbapenem which is closely related to PCN drugs. There is a 15-20 % chance of cross reactivity. Will change to aztreonam and Flagyl for IV antibiotic treatment. Supportive care. Acute diverticulitis. Thank you for allowing me to participate in the care of the patient, we will follow with you.
[2016-08-16] MEDS ORDERED: Pneumococcal 23-Valent Vaccine IM ONE (16:19)
[2016-08-16] MEDS: Aztreonam 1 Gm in NS 100mL 100 ML IVPB SCH ×2 (16:23→21:03)
[2016-08-16] MEDS ORDERED: Albuterol-Ipratrop 3 mg / 0.5 (3 ml) UD IH PRN (16:30)
[2016-08-16] MEDS: Pantoprazole 40 mg EC Tab PO SCH (17:25)
[2016-08-16] MEDS: LEVALBUTEROL TARTRATE IH SCH ×2 (17:26→21:18)
[2016-08-16] MEDS: BECLOMETHASONE DIPROPIONATE IH SCH (17:26)
[2016-08-16] MEDS: Insulin Lispro (humaLOG) LOW Coverage SC SCH ×2 (17:26→21:02)
--- NOTE | 2016-08-16 17:52 | CARD ---
APPROVED REPORT EKG Measurement Heart [id number] <Conclusion> Normal sinus rhythm Inferior infarct, age undetermined Abnormal ECG
--- NOTE | 2016-08-16 17:58 | CARD ---
APPROVED REPORT EKG Measurement Heart [id number] [place] [id number] <Conclusion> Sinus tachycardia Otherwise normal ECG
[2016-08-16] MEDS ORDERED: LEVALBUTEROL TARTRATE IH SCH (18:00)
[2016-08-16] MEDS ORDERED: BECLOMETHASONE DIPROPIONATE IH SCH (18:00)
[2016-08-16] MEDS ORDERED: TOFACITINIB CITRATE 5 MG PO SCH ×2 (18:00)
[2016-08-16] MEDS: metroNIDAZOLE IV 500 mg/100 ml 100 ML IVPB SCH (21:04)
[2016-08-17] MEDS: Sodium Chloride 0.45% 1,000 ML IV SCH ×2 (04:14→13:11)
[2016-08-17] MEDS: Aztreonam 1 Gm in NS 100mL 100 ML IVPB SCH ×3 (05:00→22:11)
[2016-08-17] MEDS: metroNIDAZOLE IV 500 mg/100 ml 100 ML IVPB SCH ×3 (05:01→23:29)
[2016-08-17 07:29] LABS: ADD MANUAL DIFF? NO
[2016-08-17 07:32] LABS: BASO # 0.02 K/mm3 (0.0-2.0); BASO % 0.3 % (0.0-3.0); EOS # 0.2 (0.0-0.7); EOS % 3.6 % (1.5-5.0); GRAN # 4.17 (1.4-6.5); GRAN % 71.8 % (50.0-68.0); HEMATOCRIT 34.9 % (36.0-48.0); LYMPH # 0.9 (1.2-3.4); LYMPH % 15.5 % (22.0-35.0); MEAN CELL VOLUME 89.3 fL (80.0-105.0); MEAN CORPUSCULAR HEMOGLOBIN 29.7 pg (25.0-35.0); MEAN CORPUSCULAR HGB CONC 33.2 g/dl (31.0-37.0); MEAN PLATELET VOLUME 9.5 fl (7.0-11.0); MONO # 0.5 (0.1-0.6); MONO % 8.8 % (1.0-6.0); PLATELET COUNT 323 10^3/uL (120.0-450.0); RED CELL DISTRIBUTION WIDTH 13.7 % (11.5-14.5); WHITE BLOOD COUNT 5.8 10^3/ul (4.5-11.0)
[2016-08-17] MEDS: Insulin Lispro (humaLOG) LOW Coverage SC SCH ×4 (07:48→22:08)
[2016-08-17] MEDS: Pantoprazole 40 mg EC Tab PO SCH ×2 (07:48→15:52)
[2016-08-17 07:58] VITALS: RESP 20
[2016-08-17 08:07] LABS: ALKALINE PHOSPHATASE 75 U/L (38-133); ALT/SGPT 37 U/L (7-56); AST/SGOT 19 U/L (15-39); BILIRUBIN,TOTAL 0.6 mg/dL (0.2-1.3); BLOOD UREA NITROGEN 9 mg/dL (7-21); CALCIUM 8.9 mg/dL (8.4-10.5); CARBON DIOXIDE 27 mmol/L (21-33); CHLORIDE 104 mmol/L (98-107); GFR AFRICAN-AMERICAN > 60; GLUCOSE,RANDOM 101 mg/dL (70-110); POTASSIUM 3.7 mmol/L (3.6-5.0); SODIUM 139 mmol/L (132-148); TOTAL PROTEIN 6.6 g/dL (5.8-8.3)
[2016-08-17] MEDS: Levothyroxine 112 MCG TAB PO SCH (09:45)
[2016-08-17] MEDS: Metoprolol Succinate 50 mg XL Tab PO SCH (09:46)
[2016-08-17] MEDS: TOFACITINIB CITRATE 5 MG PO SCH ×2 (09:46→17:28)
[2016-08-17] MEDS: BECLOMETHASONE DIPROPIONATE IH SCH ×2 (09:46→17:28)
[2016-08-17] MEDS: LEVALBUTEROL TARTRATE IH SCH ×4 (09:46→22:08)
--- NOTE | 2016-08-17 17:17 | CP.PCM.PN ---
<Bhavin Denny - Last Filed: 08/17/16 17:12> Subjective - Date & Time of Evaluation Date of Evaluation: 08/17/16 Time of Evaluation: 07:45 - Subjective Subjective: Dr. Denny PGY 1 Hospitalist Note Patient seen and evaluated at bedside. Tolerated liquid diet well overnight. Reports LLQ abdominal pain is much improved. Headache has resolved. Pt reports she slept well overnight. No other acute changes overnight.Patient denies nausea , vomiting, constipation, diarrhea, headache, and dizziness. Objective - Vital Signs/Intake and Output Vital Signs (last 24 hours): Temp Pulse Resp BP Pulse Ox 97.7 F 77 20 120/88 96 08/17/16 07:30 08/17/16 07:30 08/17/16 07:30 08/17/16 09:46 08/17/16 07:30 Intake and Output: 08/17/16 08/17/16 06:59 18:59 Intake Total 3080 760 Balance 3080 760 - Medications Medications: Current Medications Acetaminophen (Tylenol 325mg Tab) 650 mg PO Q6 PRN PRN Reason: Pain, moderate (4-7) Acetaminophen (Tylenol 325mg Tab) 650 mg PO Q6 PRN PRN Reason: Fever >100.4 F Albuterol/Ipratropium (Duoneb 3 Mg/0.5 Mg (3 Ml) Ud) 3 ml IH [id number] PRN PRN Reason: Shortness of Breath Sodium Chloride (Sodium Chloride 0.45%) 1,000 mls @ 100 mls/hr IV .Q10H [facility]UDINE Last Admin: 08/17/16 13:11 Dose: 100 mls/hr Aztreonam (Azactam 1 Gm) 100 mls @ 100 mls/hr IVPB Q8 [facility]UDINE PRN Reason: Protocol Stop: 08/22/16 22:59 Last Admin: 08/17/16 13:10 Dose: 100 mls/hr Metronidazole (Flagyl) 100 mls @ 100 mls/hr IVPB Q8 [facility]UDINE PRN Reason: Protocol Last Admin: 08/17/16 13:10 Dose: 100 mls/hr Insulin Human Lispro (Humalog Low) 0 units SC ACHS [facility]UDINE PRN Reason: Protocol Last Admin: 08/17/16 15:50 Dose: Not Given Levothyroxine Sodium (Synthroid) 112 mcg PO DAILY [facility] Last Admin: 08/17/16 09:45 Dose: 112 mcg Metoprolol Succinate (Toprol Xl) 50 mg PO DAILY [facility] Last Admin: 08/17/16 09:46 Dose: 50 mg Morphine Sulfate (Morphine) 2 mg IVP Q4H PRN PRN Reason: Pain, severe (8-10) Non-Formulary Medication (Beclomethasone Dipropionate [Qvar 80 Mcg]) 2 puff IH BID [facility] Last Admin: 08/17/16 09:46 Dose: Not Given Non-Formulary Medication (Levalbuterol Tartrate [Xopenex Hfa]) 2 puff IH QID [facility] Last Admin: 08/17/16 13:15 Dose: Not Given Non-Formulary Medication (Tofacitinib Citrate [Xeljanz]) 5 mg PO BID [facility] Last Admin: 08/17/16 09:46 Dose: Not Given Ondansetron HCl (Zofran Inj) 4 mg IVP Q6 PRN PRN Reason: Nausea/Vomiting Pantoprazole Sodium (Protonix Ec Tab) 40 mg PO 0730,1630 [facility] Last Admin: 08/17/16 15:52 Dose: 40 mg - Labs Labs: 08/17/16 07:00 08/17/16 07:00 - Constitutional Appears: Non-toxic, No Acute Distress - Head Exam Head Exam: ATRAUMATIC, NORMOCEPHALIC - Eye Exam Eye Exam: EOMI, Normal appearance, PERRL Pupil Exam: NORMAL ACCOMODATION, PERRL - ENT Exam ENT Exam: Mucous Membranes Moist, Normal Oropharynx - Neck Exam Neck Exam: Normal Inspection. absent: Tenderness - Respiratory Exam Respiratory Exam: Clear to Ausculation Bilateral, NORMAL BREATHING PATTERN. absent: Rales, Rhonchi, Wheezes - Cardiovascular Exam Cardiovascular Exam: REGULAR RHYTHM, +S1, +S2. absent: Gallop, Rubs, Murmur - GI/Abdominal Exam GI & Abdominal Exam: Soft, Tenderness (mildly left lower quadrant) - Extremities Exam Extremities Exam: Normal Inspection. absent: Pedal Edema, Tenderness - Back Exam Back Exam: NORMAL INSPECTION. absent: rash noted, tenderness - Neurological Exam Neurological Exam: Alert, Awake, CN II-XII Intact, Oriented x3 - Psychiatric Exam Psychiatric exam: Normal Affect, Normal Mood - Skin Skin Exam: Dry, Intact, Normal Color, Warm Assessment and Plan - Assessment and Plan (Free Text) Assessment: 70 yo F w/ PMHx of HTN, RA, DM, COPD and diverticulitis presents to the ED with abdominal pain that started 10 days ago and found to have diverticulitis on abdominal CT. Seen by ID and GI. Plan: 1) Diverticulitis * CT abd/pel: acute diverticulitis of the sigmoid colon. Inflammatory changes in adjacent fat planes. * CXR: no active disease * ID consulted: aztreonam and flagyl IV as per Dr. García * GI consulted: advance diet slowly and monitor pain * Zofran to control nausea * Liquid diet * pain control with morphine and Tylenol * IV fluids @100 * f/u blood and urine cultures 2) Hx of COPD * continue home Qvar, xopenex * duoneb prn 3)HTN * Initial BP 142/113 in the ER * Currently wnl * continue metoprolol * EKG normal sinus rhythm 4) DM * Hgb a1c 6.6 * insulin sliding scale regular * regular accuchecks 5) PPX * scd's * protonix Assessment and plan discussed with attending physician. <Dari Scott - Last Filed: 08/17/16 17:39> Objective - Vital Signs/Intake and Output Vital Signs (last 24 hours): Temp Pulse Resp BP Pulse Ox 97.7 F 77 20 120/88 96 08/17/16 07:30 08/17/16 07:30 08/17/16 07:30 08/17/16 09:46 08/17/16 07:30 Intake and Output: 08/17/16 08/17/16 06:59 18:59 Intake Total 3080 760 Balance 3080 760 - Medications Medications: Current Medications Acetaminophen (Tylenol 325mg Tab) 650 mg PO Q6 PRN PRN Reason: Pain, moderate (4-7) Acetaminophen (Tylenol 325mg Tab) 650 mg PO Q6 PRN PRN Reason: Fever >100.4 F Albuterol/Ipratropium (Duoneb 3 Mg/0.5 Mg (3 Ml) Ud) 3 ml IH [id number] PRN PRN Reason: Shortness of Breath Sodium Chloride (Sodium Chloride 0.45%) 1,000 mls @ 100 mls/hr IV .Q10H [facility] Last Admin: 08/17/16 13:11 Dose: 100 mls/hr Aztreonam (Azactam 1 Gm) 100 mls @ 100 mls/hr IVPB Q8 CLAUDINE PRN Reason: Protocol Stop: 08/22/16 22:59 Last Admin: 08/17/16 13:10 Dose: 100 mls/hr Metronidazole (Flagyl) 100 mls @ 100 mls/hr IVPB Q8 CLAUDINE PRN Reason: Protocol Last Admin: 08/17/16 13:10 Dose: 100 mls/hr Insulin Human Lispro (Humalog Low) 0 units SC ACHS [facility]UDINE PRN Reason: Protocol Last Admin: 08/17/16 15:50 Dose: Not Given Levothyroxine Sodium (Synthroid) 112 mcg PO DAILY [facility] Last Admin: 08/17/16 09:45 Dose: 112 mcg Metoprolol Succinate (Toprol Xl) 50 mg PO DAILY [facility] Last Admin: 08/17/16 09:46 Dose: 50 mg Morphine Sulfate (Morphine) 2 mg IVP Q4H PRN PRN Reason: Pain, severe (8-10) Non-Formulary Medication (Beclomethasone Dipropionate [Qvar 80 Mcg]) 2 puff IH BID [facility] Last Admin: 08/17/16 17:28 Dose: Not Given Non-Formulary Medication (Levalbuterol Tartrate [Xopenex Hfa]) 2 puff IH QID [facility] Last Admin: 08/17/16 17:28 Dose: Not Given Non-Formulary Medication (Tofacitinib Citrate [Xeljanz]) 5 mg PO BID [facility] Last Admin: 08/17/16 17:28 Dose: Not Given Ondansetron HCl (Zofran Inj) 4 mg IVP Q6 PRN PRN Reason: Nausea/Vomiting Pantoprazole Sodium (Protonix Ec Tab) 40 mg PO 0730,1630 [facility] Last Admin: 08/17/16 15:52 Dose: 40 mg - Labs Labs: 08/17/16 07:00 08/17/16 07:00 Attending/Attestation - Attestation I have personally seen and examined this patient.: Yes I have fully participated in the care of the patient.: Yes I have reviewed all pertinent clinical information, including history, physical exam and plan: Yes Notes (Text): 04/20/17 17:36 70 year old female with past medical history of hypertension, diabetes, COPD and diverticulitis who presented with abdominal pain. She was found to have acute sigmoid diverticulitis. She is on liquid diet, iv fluids and antibiotics. Will advance diet as tolerated. She has multiple allergies so she is on aztreonam and flagyl as per ID. GI evaluation was also appreciated. She is on metoprolol for hypertension and insulin ss for diabetes. Dari Scott MD Hospitalist.
--- NOTE | 2016-08-17 19:10 | CP.PCM.PN ---
Subjective - Date & Time of Evaluation Date of Evaluation: 08/17/16 Time of Evaluation: 17:20 - Subjective Subjective: Infectious Disease Consultation: August 16, 2016 70 yo female I last saw in September 2013 presents to [facility] for left flank pain for the past 7 days. She denies fevers, chills, nausea, vomiting, diarrhea. Currently afebrile and no appreciable leukocytosis. Urinalysis is NOT suggestive of a UTI. Chest X-ray does not display any pneumonia. CT of the Abdomen suggests acute diverticulitis. Difficulty in antibiotic treatment due to the multiple allergies. She feels better today. Objective - Vital Signs/Intake and Output Vital Signs (last 24 hours): Temp Pulse Resp BP Pulse Ox 98 F 87 20 134/86 95 08/17/16 16:00 08/17/16 16:00 08/17/16 16:00 08/17/16 16:00 08/17/16 16:00 Intake and Output: 08/17/16 08/18/16 18:59 06:59 Intake Total 1960 Balance 1960 - Medications Medications: Current Medications Acetaminophen (Tylenol 325mg Tab) 650 mg PO Q6 PRN PRN Reason: Pain, moderate (4-7) Acetaminophen (Tylenol 325mg Tab) 650 mg PO Q6 PRN PRN Reason: Fever >100.4 F Albuterol/Ipratropium (Duoneb 3 Mg/0.5 Mg (3 Ml) Ud) 3 ml IH [id number] PRN PRN Reason: Shortness of Breath Sodium Chloride (Sodium Chloride 0.45%) 1,000 mls @ 100 mls/hr IV .Q10H [facility] Last Admin: 08/17/16 13:11 Dose: 100 mls/hr Aztreonam (Azactam 1 Gm) 100 mls @ 100 mls/hr IVPB Q8 [facility] PRN Reason: Protocol Stop: 08/22/16 22:59 Last Admin: 08/17/16 13:10 Dose: 100 mls/hr Metronidazole (Flagyl) 100 mls @ 100 mls/hr IVPB Q8 [facility]INE PRN Reason: Protocol Last Admin: 08/17/16 13:10 Dose: 100 mls/hr Insulin Human Lispro (Humalog Low) 0 units SC ACHS [facility]UDINE PRN Reason: Protocol Last Admin: 08/17/16 15:50 Dose: Not Given Levothyroxine Sodium (Synthroid) 112 mcg PO DAILY [facility] Last Admin: 08/17/16 09:45 Dose: 112 mcg Metoprolol Succinate (Toprol Xl) 50 mg PO DAILY [facility] Last Admin: 08/17/16 09:46 Dose: 50 mg Morphine Sulfate (Morphine) 2 mg IVP Q4H PRN PRN Reason: Pain, severe (8-10) Non-Formulary Medication (Beclomethasone Dipropionate [Qvar 80 Mcg]) 2 puff IH BID [facility] Last Admin: 08/17/16 17:28 Dose: Not Given Non-Formulary Medication (Levalbuterol Tartrate [Xopenex Hfa]) 2 puff IH QID [facility] Last Admin: 08/17/16 17:28 Dose: Not Given Non-Formulary Medication (Tofacitinib Citrate [Xeljanz]) 5 mg PO BID [facility] Last Admin: 08/17/16 17:28 Dose: Not Given Ondansetron HCl (Zofran Inj) 4 mg IVP Q6 PRN PRN Reason: Nausea/Vomiting Pantoprazole Sodium (Protonix Ec Tab) 40 mg PO 0730,1630 [facility] Last Admin: 08/17/16 15:52 Dose: 40 mg - Labs Labs: 08/17/16 07:00 08/17/16 07:00 - Constitutional Appears: Non-toxic, No Acute Distress, Chronically Ill - Head Exam Head Exam: ATRAUMATIC, NORMOCEPHALIC - Eye Exam Eye Exam: EOMI, PERRL Pupil Exam: NORMAL ACCOMODATION, PERRL - ENT Exam ENT Exam: Mucous Membranes Moist, Normal External Ear Exam, TM's Normal Bilaterally - Neck Exam Neck Exam: Full ROM, Normal Inspection - Respiratory Exam Respiratory Exam: Clear to Ausculation Bilateral, NORMAL BREATHING PATTERN. absent: Rales, Rhonchi, Wheezes - Cardiovascular Exam Cardiovascular Exam: REGULAR RHYTHM, RRR, +S1, +S2 - GI/Abdominal Exam GI & Abdominal Exam: Soft, Normal Bowel Sounds. absent: Distended, Tenderness - Extremities Exam Extremities Exam: Full ROM, Normal Inspection - Neurological Exam Neurological Exam: Alert, Awake, CN II-XII Intact, Oriented x3 - Psychiatric Exam Psychiatric exam: Normal Affect, Normal Mood - Skin Skin Exam: Intact, Normal Color Assessment and Plan - Assessment and Plan (Free Text) Assessment: 70 yo female with previous hospitalizations in the distant past presenting with diverticulitis. Patient with multiple antibiotic allergies. Would suggest use of aztreonam for this patient as meropenem is a carbapenem which is closely related to PCN drugs. There is a 15-20 % chance of cross reactivity. Will change to aztreonam and Flagyl for IV antibiotic treatment. Supportive care. Acute diverticulitis. Thank you for allowing me to participate in the care of the patient, we will follow with you.
--- NOTE | 2016-08-18 00:28 | CON ---
DATE: 08/17/2016 This patient was seen and evaluated earlier, and discussed with the medical team and Dr. Scott. HISTORY OF PRESENT ILLNESS: This is a 70-year-old patient with a past medical history of acute diver ticulitis, presented with a 7-day history of abdominal pain worsening. The pain is mainly in the lef t side of the abdomen. No vomiting. No diarrhea. The patient had a CT in the ER, that showed acute diverticulitis. The patient has multiple allergies. The patient is started on antibiotics of rifax imin and Flagyl. The patient was seen earlier today, feeling much better, on full liquid diet. PAST MEDICAL HISTORY: Significant for diverticulitis, diabetes mellitus, chronic obstructive pulmona ry disease, gastroesophageal reflux disease, and hypertension. PAST SURGICAL HISTORY: Significant for uterine fibroid surgery and also total knee replacement. ALLERGIES: MULTIPLE ALLERGIES INCLUDING CIPRO, IODINE, ANAPHYLACTIC SHOCK WITH PENICILLIN, AND ALSO RASH WITH FLUOROQUINOLONES. SOCIAL HISTORY: Denies smoking or alcohol. REVIEW OF SYSTEMS: Positive as above. All other 14-point system review is negative. PHYSICAL EXAMINATION: GENERAL: The patient is lying on the bed, not in acute distress. VITAL SIGNS: Temperature is 98, blood pressure 134/86, pulse 87, respirations 20, O2 saturation 95. HEENT: Atraumatic, anicteric. NECK: Supple. HEART: S1, S2 heard. LUNGS: Bilateral air entry present. ABDOMEN: Soft. There is no mass palpable. No tenderness present in the left lower quadrant area. EXTREMITIES: No edema, no cyanosis. NEUROLOGIC: The patient is alert and oriented, moves all the extremities. LABORATORY DATA: Hemoglobin 11.6, hematocrit 34.9, WBC is 5.8, platelets 233. Chemistry: LFTs are essentially unremarkable. IMPRESSION: This 70-year-old patient admitted with acute diverticulitis. The patient has multiple d rug allergies. On Azactam and Flagyl, is clinically improving. Other comorbidities include gastroes ophageal reflux disease, diabetes mellitus, and obesity. RECOMMENDATIONS: 1. Continue the antibiotics, slowly advance the diet. The patient would benefit from initially a lo w-residue diet with stool softener p.r.n. We will slowly advance her diet to high fiber after a few weeks. The patient would benefit from elective colonoscopy; would wait 3-4 weeks before follow up colonoscopy. Thank you very much for allowing us to participate in the care of the patient. We will continue to c losely follow up her care and suggest further management based on the clinical course. Brandon Mills MD cc: [id number] TT: 08/18/2016 00:27:34 Confirmation # [id number] Dictation # [id number] vn
[2016-08-18] MEDS: Aztreonam 1 Gm in NS 100mL 100 ML IVPB SCH ×3 (05:16→21:20)
[2016-08-18] MEDS: metroNIDAZOLE IV 500 mg/100 ml 100 ML IVPB SCH ×3 (06:34→21:20)
[2016-08-18 06:53] LABS: ADD MANUAL DIFF? NO
[2016-08-18 06:57] LABS: BASO # 0.03 K/mm3 (0.0-2.0); BASO % 0.5 % (0.0-3.0); EOS # 0.3 (0.0-0.7); EOS % 3.9 % (1.5-5.0); GRAN % 74.3 % (50.0-68.0); HEMATOCRIT 35.3 % (36.0-48.0); LYMPH # 0.8 (1.2-3.4); LYMPH % 12.9 % (22.0-35.0); MEAN CELL VOLUME 88.3 fL (80.0-105.0); MEAN CORPUSCULAR HEMOGLOBIN 29.8 pg (25.0-35.0); MEAN CORPUSCULAR HGB CONC 33.7 g/dl (31.0-37.0); MEAN PLATELET VOLUME 9.3 fl (7.0-11.0); MONO # 0.5 (0.1-0.6); MONO % 8.4 % (1.0-6.0); PLATELET COUNT 320 10^3/uL (120.0-450.0); RED CELL DISTRIBUTION WIDTH 13.4 % (11.5-14.5); WHITE BLOOD COUNT 6.5 10^3/ul (4.5-11.0)
[2016-08-18 07:10] LABS: BLOOD UREA NITROGEN 6 mg/dL (7-21); CALCIUM 8.9 mg/dL (8.4-10.5); CARBON DIOXIDE 27 mmol/L (21-33); CHLORIDE 106 mmol/L (95-110); GFR AFRICAN-AMERICAN > 60; GLUCOSE,RANDOM 94 mg/dL (70-110); POTASSIUM 4.1 mmol/L (3.6-5.0); SODIUM 142 mmol/L (132-148)
[2016-08-18] MEDS: Insulin Lispro (humaLOG) LOW Coverage SC SCH ×4 (07:31→21:49)
[2016-08-18] MEDS: Pantoprazole 40 mg EC Tab PO SCH ×2 (08:24→17:44)
[2016-08-18] MEDS: BECLOMETHASONE DIPROPIONATE IH SCH ×2 (09:46→17:49)
[2016-08-18] MEDS: LEVALBUTEROL TARTRATE IH SCH ×3 (09:47→17:49)
[2016-08-18] MEDS: TOFACITINIB CITRATE 5 MG PO SCH ×3 (09:48→17:36)
[2016-08-18] MEDS: Metoprolol Succinate 50 mg XL Tab PO SCH (09:49)
[2016-08-18] MEDS: Levothyroxine 112 MCG TAB PO SCH (09:49)
--- NOTE | 2016-08-18 13:36 | CP.PCM.PN ---
Subjective - Date & Time of Evaluation Date of Evaluation: 08/18/16 Time of Evaluation: 12:15 - Subjective Subjective: Infectious Disease Follow Up: August 18, 2016 70 yo female I last saw in September 2013 presents [place] [facility] for left flank pain for the past 7 days. She denies fevers, chills, nausea, vomiting, diarrhea. Currently afebrile and no appreciable leukocytosis. Urinalysis is NOT suggestive of a UTI. Chest X-ray does not display any pneumonia. CT of the Abdomen suggests acute diverticulitis. Difficulty in antibiotic treatment due to the multiple allergies. She feels better today. On day 3 of Aztreonam. Objective - Vital Signs/Intake and Output Vital Signs (last 24 hours): Temp Pulse Resp BP Pulse Ox 98.0 F 78 20 108/61 97 08/18/16 07:30 08/18/16 09:49 08/18/16 07:30 08/18/16 09:49 08/18/16 07:30 Intake and Output: 08/18/16 08/18/16 06:59 18:59 Intake Total 600 720 Balance 600 720 - Medications Medications: Current Medications Acetaminophen (Tylenol 325mg Tab) 650 mg PO Q6 PRN PRN Reason: Pain, moderate (4-7) Acetaminophen (Tylenol 325mg Tab) 650 mg PO Q6 PRN PRN Reason: Fever >100.4 F Albuterol/Ipratropium (Duoneb 3 Mg/0.5 Mg (3 Ml) Ud) 3 ml IH [id number] PRN PRN Reason: Shortness of Breath Sodium Chloride (Sodium Chloride 0.45%) 1,000 mls @ 100 mls/hr IV .Q10H [facility] Last Admin: 08/17/16 13:11 Dose: 100 mls/hr Aztreonam (Azactam 1 Gm) 100 mls @ 100 mls/hr IVPB Q8 [facility]UD[facility] PRN Reason: Protocol Stop: 08/22/16 22:59 Last Admin: 08/18/16 05:16 Dose: 100 mls/hr Metronidazole (Flagyl) 100 mls @ 100 mls/hr IVPB Q8 CLAUDINE PRN Reason: Protocol Last Admin: 08/18/16 06:34 Dose: 100 mls/hr Insulin Human Lispro (Humalog Low) 0 units SC ACHS CLAUDINE PRN Reason: Protocol Last Admin: 08/18/16 11:33 Dose: Not Given Levothyroxine Sodium (Synthroid) 112 mcg PO DAILY [facility] Last Admin: 08/18/16 09:49 Dose: 112 mcg Metoprolol Succinate (Toprol Xl) 50 mg PO DAILY [facility] Last Admin: 08/18/16 09:49 Dose: 50 mg Morphine Sulfate (Morphine) 2 mg IVP Q4H PRN PRN Reason: Pain, severe (8-10) Non-Formulary Medication (Beclomethasone Dipropionate [Qvar 80 Mcg]) 2 puff IH BID [facility] Last Admin: 08/18/16 09:46 Dose: Not Given Non-Formulary Medication (Levalbuterol Tartrate [Xopenex Hfa]) 2 puff IH QID [facility] Last Admin: 08/18/16 09:47 Dose: Not Given Non-Formulary Medication (Tofacitinib Citrate [Xeljanz]) 5 mg PO BID [facility] Last Admin: 08/18/16 10:02 Dose: 5 mg Ondansetron HCl (Zofran Inj) 4 mg IVP Q6 PRN PRN Reason: Nausea/Vomiting Pantoprazole Sodium (Protonix Ec Tab) 40 mg PO 0730,1630 [facility] Last Admin: 08/18/16 08:24 Dose: 40 mg - Labs Labs: 08/18/16 06:30 08/18/16 06:30 - Constitutional Appears: Non-toxic, No Acute Distress, Chronically Ill - Head Exam Head Exam: ATRAUMATIC, NORMOCEPHALIC - Eye Exam Eye Exam: EOMI, PERRL Pupil Exam: NORMAL ACCOMODATION, PERRL - ENT Exam ENT Exam: Mucous Membranes Moist, Normal External Ear Exam, TM's Normal Bilaterally - Neck Exam Neck Exam: Full ROM, Normal Inspection - Respiratory Exam Respiratory Exam: Clear to Ausculation Bilateral, NORMAL BREATHING PATTERN. absent: Rales, Rhonchi, Wheezes - Cardiovascular Exam Cardiovascular Exam: REGULAR RHYTHM, +S1, +S2. absent: Murmur - GI/Abdominal Exam GI & Abdominal Exam: Soft, Normal Bowel Sounds. absent: Distended, Tenderness - Extremities Exam Extremities Exam: Full ROM, Normal Inspection - Neurological Exam Neurological Exam: Alert, Awake - Psychiatric Exam Psychiatric exam: Normal Affect, Normal Mood - Skin Skin Exam: Intact, Normal Color Assessment and Plan - Assessment and Plan (Free Text) Assessment: 70 yo female with previous hospitalizations in the distant past presenting with diverticulitis. Patient with multiple antibiotic allergies. Would suggest use of aztreonam for this patient as meropenem is a carbapenem which is closely related to PCN drugs. There is a 15-20 % chance of cross reactivity. On Aztreonam and Flagyl for IV antibiotic treatment. Supportive care. Acute diverticulitis. She has been tolerating the Aztreonam with no new complaints at this time. Possible transfer to [facility] to complete antibiotic therapy. Thank you for allowing me to participate in the care of the patient, we will follow with you.
--- NOTE | 2016-08-18 15:16 | CP.PCM.PN ---
<Bhavin Denny - Last Filed: 08/18/16 15:11> Subjective - Date & Time of Evaluation Date of Evaluation: 08/18/16 Time of Evaluation: 09:00 - Subjective Subjective: Dr. Denny PGY 1 Hospitalist Note Patient seen and evaluated at bedside. She states she was able to tolerate her diet and would like to try something more solid. She reports a small formed bowel movement over night without blood or pain. She states the pain in her abdomen has abated and denies any fever, chills, nausea, vomiting, SOB, chest pain, or palpitations. No adverse events overnight per nursing. Objective - Vital Signs/Intake and Output Vital Signs (last 24 hours): Temp Pulse Resp BP Pulse Ox 98.0 F 78 20 108/61 97 08/18/16 07:30 08/18/16 09:49 08/18/16 07:30 08/18/16 09:49 08/18/16 07:30 Intake and Output: 08/18/16 08/18/16 06:59 18:59 Intake Total 600 720 Balance 600 720 - Medications Medications: Current Medications Acetaminophen (Tylenol 325mg Tab) 650 mg PO Q6 PRN PRN Reason: Pain, moderate (4-7) Acetaminophen (Tylenol 325mg Tab) 650 mg PO Q6 PRN PRN Reason: Fever >100.4 F Albuterol/Ipratropium (Duoneb 3 Mg/0.5 Mg (3 Ml) Ud) 3 ml IH [id number] PRN PRN Reason: Shortness of Breath Sodium Chloride (Sodium Chloride 0.45%) 1,000 mls @ 100 mls/hr IV .Q10H [facility] Last Admin: 08/17/16 13:11 Dose: 100 mls/hr Aztreonam (Azactam 1 Gm) 100 mls @ 100 mls/hr IVPB Q8 CLAUDINE PRN Reason: Protocol Stop: 08/22/16 22:59 Last Admin: 08/18/16 14:28 Dose: 100 mls/hr Metronidazole (Flagyl) 100 mls @ 100 mls/hr IVPB Q8 CLAUDINE PRN Reason: Protocol Last Admin: 08/18/16 14:30 Dose: 100 mls/hr Insulin Human Lispro (Humalog Low) 0 units SC ACHS CLAUDINE PRN Reason: Protocol Last Admin: 08/18/16 11:33 Dose: Not Given Levothyroxine Sodium (Synthroid) 112 mcg PO DAILY [facility] Last Admin: 08/18/16 09:49 Dose: 112 mcg Metoprolol Succinate (Toprol Xl) 50 mg PO DAILY [facility] Last Admin: 08/18/16 09:49 Dose: 50 mg Non-Formulary Medication (Beclomethasone Dipropionate [Qvar 80 Mcg]) 2 puff IH BID [facility] Last Admin: 08/18/16 09:46 Dose: Not Given Non-Formulary Medication (Levalbuterol Tartrate [Xopenex Hfa]) 2 puff IH QID [facility] Last Admin: 08/18/16 14:29 Dose: Not Given Non-Formulary Medication (Tofacitinib Citrate [Xeljanz]) 5 mg PO BID [facility] Last Admin: 08/18/16 10:02 Dose: 5 mg Ondansetron HCl (Zofran Inj) 4 mg IVP Q6 PRN PRN Reason: Nausea/Vomiting Pantoprazole Sodium (Protonix Ec Tab) 40 mg PO 0730,1630 [facility] Last Admin: 08/18/16 08:24 Dose: 40 mg - Labs Labs: 08/18/16 06:30 08/18/16 06:30 - Constitutional Appears: Non-toxic, No Acute Distress - Head Exam Head Exam: ATRAUMATIC, NORMOCEPHALIC - Eye Exam Eye Exam: EOMI, Normal appearance, PERRL Pupil Exam: NORMAL ACCOMODATION, PERRL - ENT Exam ENT Exam: Mucous Membranes Moist - Respiratory Exam Respiratory Exam: Clear to Ausculation Bilateral, NORMAL BREATHING PATTERN. absent: Rales, Rhonchi, Wheezes - Cardiovascular Exam Cardiovascular Exam: REGULAR RHYTHM, +S1, +S2. absent: Gallop, Rubs, Murmur - GI/Abdominal Exam GI & Abdominal Exam: Soft, Tenderness (LLQ). absent: Distended, Firm, Normal Bowel Sounds - Extremities Exam Extremities Exam: Normal Capillary Refill, Normal Inspection. absent: Pedal Edema, Tenderness - Back Exam Back Exam: NORMAL INSPECTION. absent: rash noted, tenderness - Neurological Exam Neurological Exam: Alert, Awake, CN II-XII Intact, Oriented x3 - Psychiatric Exam Psychiatric exam: Normal Affect, Normal Mood - Skin Skin Exam: Dry, Intact, Normal Color, Warm Assessment and Plan - Assessment and Plan (Free Text) Assessment: 70 yo F w/ PMHx of HTN, RA, DM, COPD and diverticulitis presents to the ED with abdominal pain that started 10 days ago and found to have diverticulitis on abdominal CT. Seen by ID and GI. Plan: Diverticulitis * CT abd/pel: acute diverticulitis of the sigmoid colon. Inflammatory changes in adjacent fat planes. * CXR: no active disease * ID consulted: aztreonam and flagyl IV as per Dr. García * GI consulted: advance diet slowly and monitor pain * Zofran to control nausea * Liquid diet * pain control with Tylenol * IV fluids @100 * remains afebrile without leukocytosis * will need to continue IV abx due to multiple abx allergies Hx of COPD * continue home Qvar, xopenex * duoneb prn HTN * Initial BP 142/113 in the ER * Currently wnl * continue metoprolol * EKG normal sinus rhythm DM * Hgb a1c 6.6 * insulin sliding scale regular * regular accuchecks PPX * scd's * protonix Assessment and plan discussed with attending physician. <Dari Scott A - Last Filed: 08/18/16 15:39> Objective - Vital Signs/Intake and Output Vital Signs (last 24 hours): Temp Pulse Resp BP Pulse Ox 98.0 F 78 20 108/61 97 08/18/16 07:30 08/18/16 09:49 08/18/16 07:30 08/18/16 09:49 08/18/16 07:30 Intake and Output: 08/18/16 08/18/16 06:59 18:59 Intake Total 600 720 Balance 600 720 - Medications Medications: Current Medications Acetaminophen (Tylenol 325mg Tab) 650 mg PO Q6 PRN PRN Reason: Pain, moderate (4-7) Acetaminophen (Tylenol 325mg Tab) 650 mg PO Q6 PRN PRN Reason: Fever >100.4 F Albuterol/Ipratropium (Duoneb 3 Mg/0.5 Mg (3 Ml) Ud) 3 ml IH [id number] PRN PRN Reason: Shortness of Breath Sodium Chloride (Sodium Chloride 0.45%) 1,000 mls @ 100 mls/hr IV .Q10H [facility] Last Admin: 08/17/16 13:11 Dose: 100 mls/hr Aztreonam (Azactam 1 Gm) 100 mls @ 100 mls/hr IVPB Q8 CLAUDINE PRN Reason: Protocol Stop: 08/22/16 22:59 Last Admin: 08/18/16 14:28 Dose: 100 mls/hr Metronidazole (Flagyl) 100 mls @ 100 mls/hr IVPB Q8 CLAUDINE PRN Reason: Protocol Last Admin: 08/18/16 14:30 Dose: 100 mls/hr Insulin Human Lispro (Humalog Low) 0 units SC ACHS CLAUDINE PRN Reason: Protocol Last Admin: 08/18/16 11:33 Dose: Not Given Levothyroxine Sodium (Synthroid) 112 mcg PO DAILY [facility] Last Admin: 08/18/16 09:49 Dose: 112 mcg Metoprolol Succinate (Toprol Xl) 50 mg PO DAILY [facility] Last Admin: 08/18/16 09:49 Dose: 50 mg Non-Formulary Medication (Beclomethasone Dipropionate [Qvar 80 Mcg]) 2 puff IH BID [facility] Last Admin: 08/18/16 09:46 Dose: Not Given Non-Formulary Medication (Levalbuterol Tartrate [Xopenex Hfa]) 2 puff IH QID [facility] Last Admin: 08/18/16 14:29 Dose: Not Given Non-Formulary Medication (Tofacitinib Citrate [Xeljanz]) 5 mg PO BID [facility] Last Admin: 08/18/16 10:02 Dose: 5 mg Ondansetron HCl (Zofran Inj) 4 mg IVP Q6 PRN PRN Reason: Nausea/Vomiting Pantoprazole Sodium (Protonix Ec Tab) 40 mg PO 0730,1630 [facility] Last Admin: 08/18/16 08:24 Dose: 40 mg - Labs Labs: 08/18/16 06:30 08/18/16 06:30 Attending/Attestation - Attestation I have personally seen and examined this patient.: Yes I have fully participated in the care of the patient.: Yes I have reviewed all pertinent clinical information, including history, physical exam and plan: Yes Notes (Text): 08/18/16 15:37 70 year old female with past medical history of hypertension, diabetes, COPD and diverticulitis who presented with abdominal pain. She was found to have acute sigmoid diverticulitis. She is on iv antibiotics. GI and ID are following the patient. Her symptoms are improving and her diet will be advanced today. She is on metoprolol for hypertension and insulin ss for diabetes. TCU evaluation is requested for possible d/c to TCU tomorrow to complete course of iv antibiotics as she has history of allergy to multiple antibiotics. Dari Scott MD Hospitalist.
[2016-08-18 15:58] VITALS: TEMP 97.9
--- NOTE | 2016-08-18 21:35 | PN ---
DATE: 08/18/2016 SUBJECTIVE: This patient was seen and evaluated earlier. Feels much better. She is on IV Azactam a nd IV Flagyl. PHYSICAL EXAMINATION: VITAL SIGNS: Temperature is 97.9, blood pressure is 150/ , respirations 20, O2 saturation 96. HEENT: Atraumatic, anicteric. NECK: Supple. HEART: S1, S2 heard. LUNGS: Bilateral air entry present. ABDOMEN: Soft. There is no mass palpable. Minimal tenderness present in the left lower quadrant ar ea. EXTREMITIES: No edema. No cyanosis. LABORATORY DATA: Hemoglobin 11.6, hematocrit 35.3, WBC is 6.5, platelets 320. Chemistry, LFTs is es sentially unremarkable. IMPRESSION: This is a 70-year-old patient admitted with acute diverticulitis. Multiple allergies on IV Azactam and IV Flagyl. Clinically improving. The patient is planned to be transferred to TCU fo r completion of the antibiotic therapy. Thank you very much for allowing us to participate in the care of the patient. The will need electiv e colonoscopy after 4 weeks' time. Brandon Mills MD cc: [id number] TT: 08/18/2016 21:34:31 Confirmation # [id number] Dictation # [id number] valeri
[2016-08-19] MEDS: metroNIDAZOLE IV 500 mg/100 ml 100 ML IVPB SCH (05:30)
[2016-08-19] MEDS: Aztreonam 1 Gm in NS 100mL 100 ML IVPB SCH (06:00)
[2016-08-19 06:57] LABS: ADD MANUAL DIFF? NO; BASO # 0.02 K/mm3 (0.0-2.0); BASO % 0.4 % (0.0-3.0); EOS # 0.2 (0.0-0.7); EOS % 4.3 % (1.5-5.0); GRAN % 67.7 % (50.0-68.0); HEMATOCRIT 35.2 % (36.0-48.0); LYMPH # 0.9 (1.2-3.4); LYMPH % 16.6 % (22.0-35.0); MEAN CORPUSCULAR HEMOGLOBIN 29.5 pg (25.0-35.0); MEAN CORPUSCULAR HGB CONC 33.5 g/dl (31.0-37.0); MEAN PLATELET VOLUME 9.3 fl (7.0-11.0); MONO # 0.6 (0.1-0.6); PLATELET COUNT 323 10^3/uL (120.0-450.0); RED CELL DISTRIBUTION WIDTH 13.3 % (11.5-14.5); WHITE BLOOD COUNT 5.2 10^3/ul (4.5-11.0)
[2016-08-19 07:06] LABS: BLOOD UREA NITROGEN 9 mg/dL (7-21); CALCIUM 8.9 mg/dL (8.4-10.5); CARBON DIOXIDE 28 mmol/L (21-33); CHLORIDE 104 mmol/L (98-107); GFR AFRICAN-AMERICAN > 60; GLUCOSE,RANDOM 99 mg/dL (70-110); POTASSIUM 3.7 mmol/L (3.6-5.0); SODIUM 141 mmol/L (132-148)
[2016-08-19] MEDS: Insulin Lispro (humaLOG) LOW Coverage SC SCH ×2 (07:54→12:24)
[2016-08-19 08:15] VITALS: BP 119/62; PULSE 73; O2SAT 94
[2016-08-19] MEDS: Pantoprazole 40 mg EC Tab PO SCH (08:21)
[2016-08-19] MEDS: TOFACITINIB CITRATE 5 MG PO SCH (08:59)
[2016-08-19] MEDS: Levothyroxine 112 MCG TAB PO SCH (09:00)
[2016-08-19] MEDS: Metoprolol Succinate 50 mg XL Tab PO SCH (09:00)
--- NOTE | 2016-08-19 09:57 | CP.PCM.DIS ---
<Bhavin Denny - Last Filed: 08/19/16 12:13> Provider - Provider Date of Admission: 08/16/16 11:51 Attending physician: Dari Scott MD Primary care physician: Trev Schultz MD Consults: Dr. Paras Mills Time Spent in preparation of Discharge (in minutes): 45 Hospital Course - Lab Results Lab Results: Most Recent Lab Values WBC 5.2 10^3/ul (4.5-11.0) 08/19/16 05:00 RBC 4.00 10^6/uL (3.5-6.1) 08/19/16 05:00 Hgb 11.8 gm/dL (12.0-16.0) L 08/19/16 05:00 Hct 35.2 % (36.0-48.0) L 08/19/16 05:00 MCV 88.0 fL (80.0-105.0) 08/19/16 05:00 MCH 29.5 pg (25.0-35.0) 08/19/16 05:00 MCHC 33.5 g/dl (31.0-37.0) 08/19/16 05:00 RDW 13.3 % (11.5-14.5) 08/19/16 05:00 Plt Count 323 10^3/uL (120.0-450.0) 08/19/16 05:00 MPV 9.3 fl (7.0-11.0) 08/19/16 05:00 Gran % 67.7 % (50.0-68.0) 08/19/16 05:00 Lymph % (Auto) 16.6 % (22.0-35.0) L 08/19/16 05:00 [place] % (Auto) 11.0 % (1.0-6.0) H 08/19/16 05:00 Eos % (Auto) 4.3 % (1.5-5.0) 08/19/16 05:00 Baso % (Auto) 0.4 % (0.0-3.0) 08/19/16 05:00 Gran # 3.50 (1.4-6.5) 08/19/16 05:00 Lymph # 0.9 (1.2-3.4) L 08/19/16 05:00 [place] # 0.6 (0.1-0.6) 08/19/16 05:00 Eos # 0.2 (0.0-0.7) 08/19/16 05:00 Baso # 0.02 K/mm3 (0.0-2.0) 08/19/16 05:00 Sodium 141 mmol/L (132-148) 08/19/16 06:48 Potassium 3.7 mmol/L (3.6-5.0) 08/19/16 06:48 Chloride 104 mmol/L (98-107) 08/19/16 06:48 Carbon Dioxide 28 mmol/L (21-33) 08/19/16 06:48 Anion Gap 13 (10-20) 08/19/16 06:48 BUN 9 mg/dL (7-21) 08/19/16 06:48 Creatinine 0.7 mg/dL (0.5-1.4) 08/19/16 06:48 Est GFR ( Amer) > 60 08/19/16 06:48 Est GFR (Non-Af Amer) > 60 08/19/16 06:48 POC Glucose (mg/dL) 115 mg/dL (65-110) H 08/18/16 16:02 Random Glucose 99 mg/dL (70-110) 08/19/16 06:48 Hemoglobin A1c 6.6 % (4.2-6.5) H 08/17/16 07:00 Calcium 8.9 mg/dL (8.4-10.5) 08/19/16 06:48 Total Bilirubin 0.6 mg/dL (0.2-1.3) 08/17/16 07:00 AST 19 U/L (15-39) 08/17/16 07:00 ALT 37 U/L (7-56) 08/17/16 07:00 Alkaline Phosphatase 75 U/L (38-133) 08/17/16 07:00 Total Protein 6.6 g/dL (5.8-8.3) 08/17/16 07:00 Albumin 3.3 g/dL (3.0-4.8) 08/17/16 07:00 Globulin 3.2 gm/dL 08/17/16 07:00 Albumin/Globulin Ratio 1.0 (1.1-1.8) L 08/17/16 07:00 Lipase 54 U/L (23-300) 08/16/16 09:51 Urine Color Yellow (YELLOW) 08/16/16 09:45 Urine Appearance Clear (CLEAR) 08/16/16 09:45 Urine pH 6.5 (4.7-8.0) 08/16/16 09:45 Ur Specific [place] 1.020 (1.005-1.035) 08/16/16 09:45 Urine Protein Negative mg/dL (<30 mg/dL) 08/16/16 09:45 Urine Glucose (UA) Negative mg/dL (NEGATIVE) 08/16/16 09:45 Urine Ketones Negative mg/dL (NEGATIVE) 08/16/16 09:45 Urine Blood Trace-intact (NEGATIVE) H 08/16/16 09:45 Urine Nitrate Negative (NEGATIVE) 08/16/16 09:45 Urine Bilirubin Negative (NEGATIVE) 08/16/16 09:45 Urine Urobilinogen 0.2 E.U./dL (<1 E.U./dL) 08/16/16 09:45 Ur Leukocyte Esterase Trace Fady/uL (NEGATIVE) H 08/16/16 09:45 Urine RBC 0 - 2 /hpf (0-2) 08/16/16 09:45 Urine WBC 0 - 2 /hpf (0-6) 08/16/16 09:45 Ur Epithelial Cells 1 - 3 /hpf (0-5) 08/16/16 09:45 - Hospital Course Hospital Course: HPI: 70 yo F w/ PMHx of HTN, RA, DM, COPD and diverticulitis presents to the ED with abdominal pain that started 10 days ago. Patient reports it began in the upper gastric region but as of yesterday its more so in the lower abdomen/ pelvic region. Pt tried clear liquid diet as this has helped with diverticulitis before; it provided temporary relief. Pt reports eating a regular meal for dinner last night and overnight, abdominal pain worsened. Pt has mild nausea associated with the abdominal pain. Pt also reports headache, which the patient attributes to lack of caffeine intake today. Patient had soft BM in the AM. She denies any chills, chest pain, dysuria, constipation, diarrhea , vomiting. Patient is a 70 y/o F who presented to the hospital with complaint of abdominal pain. An initial CXR showed no active disease. A CT abd/pel showed acute diverticulitis of the sigmoid colon, inflammatory changes in adjacent fat planes. She was placed on IV fluids, liquid diet, boyer control and ID and GI were consulted. The patient has many antibiotic allergies and she was started on IV aztreonam and flagyl. Her pain improved and her diet was advanced. Due to her many antibiotic allergies, it was determined safer for her to continue her course of IV antibiotics. She was evaluated by TCU and deemed a candidate. She was determined medically stable for transfer to TCU to continue her IV abx course and get rehab. This is a brief summary of the patient's stay at this facility. For more detail , see patient's full chart. - Date & Time of H&P Date of H&P: 08/16/16 Time of H&P: 14:36 Discharge Exam - Head Exam Head Exam: ATRAUMATIC, NORMOCEPHALIC - Eye Exam Eye Exam: EOMI, Normal appearance, PERRL Pupil Exam: NORMAL ACCOMODATION, PERRL - ENT Exam ENT Exam: Mucous Membranes Moist. absent: Normal Oropharynx (dentures in place) - Neck Exam Neck exam: Normal Inspection - Respiratory Exam Respiratory Exam: Clear to PA & Lateral, NORMAL BREATHING PATTERN. absent: Rales, Rhonchi, Wheezes - Cardiovascular Exam Cardiovascular Exam: REGULAR RHYTHM, +S1, +S2. absent: Gallop, Rubs, Systolic Murmur - GI/Abdominal Exam GI & Abdominal Exam: Normal Bowel Sounds, Soft. absent: Distended, Guarding, Tenderness - Extremities Exam Extremities exam: normal capillary refill, normal inspection, pedal pulses present - Back Exam Back exam: NORMAL INSPECTION. absent: rash noted, tenderness - Neurological Exam Neurological exam: Alert, CN II-XII Intact, Oriented x3, Reflexes Normal - Psychiatric Exam Psychiatric exam: Normal Affect, Normal Mood - Skin Skin Exam: Dry, Intact, Warm Discharge Plan - Follow Up Plan Condition: STABLE Disposition: Still A Patient Instructions: Diverticulitis (DC), Abdominal Pain (ED) Additional Instructions: You are medically stable for discharge to TCU. Please continue antibiotics there. You are being discharged to TCU. Please give your home med Xejessica to the RN when you go there. Referrals: Trev Schultz MD [Primary Care Provider] - <[facility]rf[facility] - Last Filed: 08/19/16 12:40> Provider - Provider Date of Admission: 08/16/16 11:51 Attending physician: Dari Scott MD Primary care physician: Trev Schultz MD Hospital Course - Lab Results Lab Results: Most Recent Lab Values WBC 5.2 10^3/ul (4.5-11.0) 08/19/16 05:00 RBC 4.00 10^6/uL (3.5-6.1) 08/19/16 05:00 Hgb 11.8 gm/dL (12.0-16.0) L 08/19/16 05:00 Hct 35.2 % (36.0-48.0) L 08/19/16 05:00 MCV 88.0 fL (80.0-105.0) 08/19/16 05:00 MCH 29.5 pg (25.0-35.0) 08/19/16 05:00 MCHC 33.5 g/dl (31.0-37.0) 08/19/16 05:00 RDW 13.3 % (11.5-14.5) 08/19/16 05:00 Plt Count 323 10^3/uL (120.0-450.0) 08/19/16 05:00 MPV 9.3 fl (7.0-11.0) 08/19/16 05:00 Gran % 67.7 % (50.0-68.0) 08/19/16 05:00 Lymph % (Auto) 16.6 % (22.0-35.0) L 08/19/16 05:00 [place] % (Auto) 11.0 % (1.0-6.0) H 08/19/16 05:00 Eos % (Auto) 4.3 % (1.5-5.0) 08/19/16 05:00 Baso % (Auto) 0.4 % (0.0-3.0) 08/19/16 05:00 Gran # 3.50 (1.4-6.5) 08/19/16 05:00 Lymph # 0.9 (1.2-3.4) L 08/19/16 05:00 [place] # 0.6 (0.1-0.6) 08/19/16 05:00 Eos # 0.2 (0.0-0.7) 08/19/16 05:00 Baso # 0.02 K/mm3 (0.0-2.0) 08/19/16 05:00 Sodium 141 mmol/L (132-148) 08/19/16 06:48 Potassium 3.7 mmol/L (3.6-5.0) 08/19/16 06:48 Chloride 104 mmol/L (98-107) 08/19/16 06:48 Carbon Dioxide 28 mmol/L (21-33) 08/19/16 06:48 Anion Gap 13 (10-20) 08/19/16 06:48 BUN 9 mg/dL (7-21) 08/19/16 06:48 Creatinine 0.7 mg/dL (0.5-1.4) 08/19/16 06:48 Est GFR ( Amer) > 60 08/19/16 06:48 Est GFR (Non-Af Amer) > 60 08/19/16 06:48 POC Glucose (mg/dL) 115 mg/dL (65-110) H 08/18/16 16:02 Random Glucose 99 mg/dL (70-110) 08/19/16 06:48 Hemoglobin A1c 6.6 % (4.2-6.5) H 08/17/16 07:00 Calcium 8.9 mg/dL (8.4-10.5) 08/19/16 06:48 Total Bilirubin 0.6 mg/dL (0.2-1.3) 08/17/16 07:00 AST 19 U/L (15-39) 08/17/16 07:00 ALT 37 U/L (7-56) 08/17/16 07:00 Alkaline Phosphatase 75 U/L (38-133) 08/17/16 07:00 Total Protein 6.6 g/dL (5.8-8.3) 08/17/16 07:00 Albumin 3.3 g/dL (3.0-4.8) 08/17/16 07:00 Globulin 3.2 gm/dL 08/17/16 07:00 Albumin/Globulin Ratio 1.0 (1.1-1.8) L 08/17/16 07:00 Lipase 54 U/L (23-300) 08/16/16 09:51 Urine Color Yellow (YELLOW) 08/16/16 09:45 Urine Appearance Clear (CLEAR) 08/16/16 09:45 Urine pH 6.5 (4.7-8.0) 08/16/16 09:45 Ur Specific [place] 1.020 (1.005-1.035) 08/16/16 09:45 Urine Protein Negative mg/dL (<30 mg/dL) 08/16/16 09:45 Urine Glucose (UA) Negative mg/dL (NEGATIVE) 08/16/16 09:45 Urine Ketones Negative mg/dL (NEGATIVE) 08/16/16 09:45 Urine Blood Trace-intact (NEGATIVE) H 08/16/16 09:45 Urine Nitrate Negative (NEGATIVE) 08/16/16 09:45 Urine Bilirubin Negative (NEGATIVE) 08/16/16 09:45 Urine Urobilinogen 0.2 E.U./dL (<1 E.U./dL) 08/16/16 09:45 Ur Leukocyte Esterase Trace Fady/uL (NEGATIVE) H 08/16/16 09:45 Urine RBC 0 - 2 /hpf (0-2) 08/16/16 09:45 Urine WBC 0 - 2 /hpf (0-6) 08/16/16 09:45 Ur Epithelial Cells 1 - 3 /hpf (0-5) 08/16/16 09:45 Attending/Attestation - Attestation I have personally seen and examined this patient.: Yes I have fully participated in the care of the patient.: Yes I have reviewed all pertinent clinical information, including history, physical exam and plan: Yes Notes (Text): Patient was seen and examined with medical lab technician .Agreed with resident assessment and plan. 70 yo F w/ PMHx of HTN, RA, DM, COPD was admitted with recurrent sigmoid diverticulitis, she is allergic to Penicillin and Quinolone, treated with IV Aztreonam and Flagy. Patient symptoms has improved.She is tolerating food, abdominal tenderness has significantly improved. As there is no oral option available, patient will be transferred to TCU for completion of IV anttibiotics. Management plan was discussed in detail with patient Education was provided.
[2016-08-19] MEDS: BECLOMETHASONE DIPROPIONATE IH SCH (10:39)
[2016-08-19] MEDS: LEVALBUTEROL TARTRATE IH SCH (10:39)
== END 2016-08-19 12:30 | DRG 392 ==
LOC: ED 08:51 → ERH 11:51 → 5RNO 14:32
PROVIDERS: ADMIT Internal Medicine; ATTEND Internal Medicine
DX: K57.32 Diverticulitis of large intestine without perforation or abscess without bleeding (principal); J44.9 Chronic obstructive pulmonary disease, unspecified; I10 Essential (primary) hypertension; E03.9 Hypothyroidism, unspecified; Z88.1 Allergy status to other antibiotic agents; E11.9 Type 2 diabetes mellitus without complications; E66.9 Obesity, unspecified; E73.9 Lactose intolerance, unspecified; K21.9 Gastro-esophageal reflux disease without esophagitis; Z82.5 Family history of asthma and other chronic lower respiratory diseases; Z83.3 Family history of diabetes mellitus; Z87.442 Personal history of urinary calculi; Z87.891 Personal history of nicotine dependence; Z88.0 Allergy status to penicillin; Z96.651 Presence of right artificial knee joint; Z88.8 Allergy status to other drugs, medicaments and biological substances; Z87.892 Personal history of anaphylaxis; Z91.013 Allergy to seafood; M06.9 Rheumatoid arthritis, unspecified; R51 Headache

== ENCOUNTER 2016-08-19 12:40 | Inpatient (IN) | payer OTHER, BC ==
[2016-08-19] MEDS ORDERED: Albuterol-Ipratrop 3 mg / 0.5 (3 ml) UD IH SCH (14:00)
[2016-08-19] MEDS: Aztreonam 1 Gm in NS 100mL 100 ML IVPB SCH ×2 (14:16→21:37)
[2016-08-19] MEDS: LEVALBUTEROL TARTRATE IH SCH ×3 (15:00→23:28)
[2016-08-19] MEDS ORDERED: Albuterol-Ipratrop 3 mg / 0.5 (3 ml) UD IH PRN (15:00)
[2016-08-19] MEDS ORDERED: Pneumococcal 23-Valent Vaccine IM ONE (16:31)
[2016-08-19] MEDS: metroNIDAZOLE IV 500 mg/100 ml 100 ML IVPB SCH ×2 (16:42→21:38)
[2016-08-19] MEDS: Insulin Lispro (humaLOG) LOW Coverage SC SCH ×2 (17:23→21:38)
[2016-08-19] MEDS: TOFACITINIB 5 MG PO SCH ×2 (17:25→21:50)
[2016-08-19] MEDS ORDERED: BECLOMETHASONE DIPROPIONATE IH SCH (18:00)
--- NOTE | 2016-08-19 18:18 | CP.PCM.CON ---
History of Present Illness - History of Present Illness History of Present Illness: Infectious Disease Follow Up/Consult: August 19, 2016 70 yo female I last saw in September 2013 presents to [facility] [place] [facility] ER for left flank pain for the past 7 days. She denies fevers, chills, nausea, vomiting, diarrhea. Currently afebrile and no appreciable leukocytosis. Urinalysis is NOT suggestive of a UTI. Chest X-ray does not display any pneumonia. CT of the Abdomen suggests acute diverticulitis. Difficulty in antibiotic treatment due to the multiple allergies. She feels better today. On day 4 of Aztreonam. In TRCU now. PMHx: diverticulitis, peritonitis, diabetes mellitus, chronic obstructive pulmonary disease, Gastroesophageal reflux disease, and hypertension PSHx: Total knee replacement and multiple uterine fibroid removals. Allergies: Multiple - Cipro, fish, Iodine, PCN, shellfish. Anaphylactic shock with PCN. Rash at throat with Fluoroquinolones. Social Hx: No tobacco, EtOH, or illicit drug use Active Medications Acetaminophen (Tylenol 325mg Tab) 650 mg PO Q6H PRN; Protocol PRN Reason: Fever >100.4 F Acetaminophen (Tylenol 325mg Tab) 650 mg PO Q6H PRN; Protocol PRN Reason: Pain, moderate (4-7) Albuterol/Ipratropium (Duoneb 3 Mg/0.5 Mg (3 Ml) Ud) 3 ml IH [id number] PRN; Protocol PRN Reason: Shortness of Breath Home Med (Home Med) 1 unit PO BID [facility] Last Admin: 08/19/16 17:25 Dose: Not Given Aztreonam (Azactam 1 Gm) 100 mls @ 100 mls/hr IVPB Q8 CLAUDINE PRN Reason: Protocol Stop: 08/22/16 14:01 Last Admin: 08/19/16 14:16 Dose: 100 mls/hr Metronidazole (Flagyl) 100 mls @ 100 mls/hr IVPB Q8 CLAUDINE PRN Reason: Protocol Stop: 08/22/16 14:01 Last Admin: 08/19/16 16:42 Dose: 100 mls/hr Insulin Human Lispro (Humalog Low) 0 units SC ACHS CLAUDINE PRN Reason: Protocol Last Admin: 08/19/16 17:23 Dose: Not Given Levothyroxine Sodium (Synthroid) 112 mcg PO DAILY CALUDINE PRN Reason: Protocol Metoprolol Succinate (Toprol Xl) 50 mg PO DAILY [facility] PRN Reason: Protocol Non-Formulary Medication (Levalbuterol Tartrate [Xopenex Hfa]) 2 puff IH QID [facility] Last Admin: 08/19/16 17:25 Dose: Not Given Non-Formulary Medication (Beclomethasone Dipropionate [Qvar 80 Mcg]) 2 puff IH BID [facility] Ondansetron HCl (Zofran Inj) 4 mg IVP Q6H PRN; Protocol PRN Reason: Nausea/Vomiting Pantoprazole Sodium (Protonix Ec Tab) 40 mg PO 0630 CLAUDINE PRN Reason: Protocol Family Hx: none given ROS: No fevers, chills, headaches, dizziness, chest pain, melena, hematuria, hematemesis, hematochezia, depression, anxiety. Patient with abdominal pain. Past Patient History - Tetanus Immunizations Tetanus Immunization: Unknown - Past Social History Smoking Status: Former Smoker - CARDIAC Hx Pacemaker: No - PULMONARY Hx Chronic Obstructive Pulmonary Disease (COPD): Yes - NEUROLOGICAL Hx Paralysis: No - HEENT Hx HEENT Problems: No - RENAL Hx Chronic Kidney Disease: Yes (RENAL STONE?) - ENDOCRINE/METABOLIC Hx Endocrine Disorders: No - HEMATOLOGICAL/ONCOLOGICAL Hx Blood Transfusions: No Hx Blood Transfusion Reaction: No - INTEGUMENTARY Hx Dermatological Problems: No - MUSCULOSKELETAL/RHEUMATOLOGICAL Hx Falls: No - GASTROINTESTINAL Hx Gastrointestinal Disorders: Yes (ABDOMINAL SX WITH H/O PERITONITIS) Hx Diverticulitis: Yes - GENITOURINARY/GYNECOLOGICAL Hx Reproductive Disorders: Yes (hx fibroids had sx) - PSYCHIATRIC Hx Emotional Abuse: No Hx Physical Abuse: No Hx Substance Use: No - SURGICAL HISTORY Hx Orthopedic Surgery: Yes (rt knee replacement) - ANESTHESIA Hx Anesthesia Reactions: No Hx Malignant Hyperthermia: No Meds Allergies/Adverse Reactions: Allergies Allergy/AdvReac Type Severity Reaction Status Date / Time ciprofloxacin [From Cipro] Allergy RASH Verified 08/19/16 12:49 ciprofloxacin HCl Allergy RASH Verified 08/19/16 12:49 [From Cipro] FISH Allergy ANAPHYLAXIS Verified 08/19/16 12:49 iodine Allergy ANAPHYLAXIS Verified 08/19/16 12:49 levofloxacin Allergy ANAPHYLAXIS Verified 08/19/16 12:49 Penicillins Allergy ANAPHYLAXIS Verified 08/19/16 12:49 shellfish derived Allergy ANAPHYLAXIS Verified 08/19/16 12:49 - Medications Medications: Current Medications Acetaminophen (Tylenol 325mg Tab) 650 mg PO Q6H PRN; Protocol PRN Reason: Fever >100.4 F Acetaminophen (Tylenol 325mg Tab) 650 mg PO Q6H PRN; Protocol PRN Reason: Pain, moderate (4-7) Albuterol/Ipratropium (Duoneb 3 Mg/0.5 Mg (3 Ml) Ud) 3 ml IH [id number] PRN; Protocol PRN Reason: Shortness of Breath Home Med (Home Med) 1 unit PO BID [facility] Last Admin: 08/19/16 17:25 Dose: Not Given Aztreonam (Azactam 1 Gm) 100 mls @ 100 mls/hr IVPB Q8 CLAUDINE PRN Reason: Protocol Stop: 08/22/16 14:01 Last Admin: 08/19/16 14:16 Dose: 100 mls/hr Metronidazole (Flagyl) 100 mls @ 100 mls/hr IVPB Q8 CLAUDINE PRN Reason: Protocol Stop: 08/22/16 14:01 Last Admin: 08/19/16 16:42 Dose: 100 mls/hr Insulin Human Lispro (Humalog Low) 0 units SC ACHS CLAUDINE PRN Reason: Protocol Last Admin: 08/19/16 17:23 Dose: Not Given Levothyroxine Sodium (Synthroid) 112 mcg PO DAILY [facility] PRN Reason: Protocol Metoprolol Succinate (Toprol Xl) 50 mg PO DAILY [facility] PRN Reason: Protocol Non-Formulary Medication (Levalbuterol Tartrate [Xopenex Hfa]) 2 puff IH QID [facility] Last Admin: 08/19/16 17:25 Dose: Not Given Non-Formulary Medication (Beclomethasone Dipropionate [Qvar 80 Mcg]) 2 puff IH BID [facility] Ondansetron HCl (Zofran Inj) 4 mg IVP Q6H PRN; Protocol PRN Reason: Nausea/Vomiting Pantoprazole Sodium (Protonix Ec Tab) 40 mg PO 0630 [facility] PRN Reason: Protocol Physical Exam - Constitutional Appears: Non-toxic, No Acute Distress - Head Exam Head Exam: ATRAUMATIC, NORMOCEPHALIC - Eye Exam Eye Exam: EOMI, PERRL Pupil Exam: NORMAL ACCOMODATION, PERRL - ENT Exam ENT Exam: Mucous Membranes Moist, Normal External Ear Exam, TM's Normal Bilaterally - Neck Exam Neck exam: Positive for: Full Rom, Normal Inspection - Respiratory Exam Respiratory Exam: Clear to Auscultation Bilateral, NORMAL BREATHING PATTERN. absent: Rales, Rhonchi, Wheezes - Cardiovascular Exam Cardiovascular Exam: REGULAR RHYTHM, RRR, +S1, +S2 - GI/Abdominal Exam GI & Abdominal Exam: Normal Bowel Sounds, Soft. absent: Distended, Tenderness - Extremities Exam Extremities exam: Positive for: full ROM, normal inspection - Neurological Exam Neurological exam: Alert, CN II-XII Intact, Oriented x3 - Psychiatric Exam Psychiatric exam: Normal Affect, Normal Mood Results - Vital Signs Recent Vital Signs: Last Vital Signs Temp 97.9 F 08/19/16 16:22 Pulse 72 08/19/16 16:22 Resp 18 08/19/16 16:22 BP 130/81 08/19/16 16:22 Pulse Ox 97 08/19/16 16:20 - Labs Labs: Laboratory Results - last 24 hr 08/19/16 17:00 POC Glucose (mg/dL) 112 H Assessment & Plan - Assessment and Plan (Free Text) Assessment: 70 yo female with previous hospitalizations in the distant past presenting with diverticulitis. Patient with multiple antibiotic allergies. Would suggest use of aztreonam for this patient as meropenem is a carbapenem which is closely related to PCN drugs. There is a 15-20 % chance of cross reactivity. Will change to aztreonam and Flagyl for IV antibiotic treatment. Supportive care. Acute diverticulitis. Day 4 of treatment. In TRCU now. Thank you for allowing me to participate in the care of the patient, we will follow with you.
[2016-08-19] MEDS ORDERED: Home Med 1 UNIT PO SCH (22:00)
[2016-08-19] MEDS: BECLOMETHASONE DIPROPIONATE IH SCH (23:28)
[2016-08-20] MEDS: Aztreonam 1 Gm in NS 100mL 100 ML IVPB SCH ×3 (05:40→21:55)
[2016-08-20] MEDS: Pantoprazole 40 mg EC Tab PO SCH (05:41)
[2016-08-20] MEDS: metroNIDAZOLE IV 500 mg/100 ml 100 ML IVPB SCH ×2 (05:42→14:02)
[2016-08-20] MEDS ORDERED: Levothyroxine 112 MCG TAB PO SCH (06:00)
[2016-08-20 06:09] LABS: ADD MANUAL DIFF? NO
[2016-08-20 06:13] LABS: BASO # 0.04 K/mm3 (0.0-2.0); BASO % 0.7 % (0.0-3.0); EOS # 0.3 (0.0-0.7); EOS % 4.4 % (1.5-5.0); GRAN # 3.22 (1.4-6.5); GRAN % 56.4 % (50.0-68.0); HEMATOCRIT 37.3 % (36.0-48.0); LYMPH # 1.6 (1.2-3.4); MEAN CORPUSCULAR HEMOGLOBIN 29.5 pg (25.0-35.0); MEAN CORPUSCULAR HGB CONC 33.5 g/dl (31.0-37.0); MONO # 0.6 (0.1-0.6); MONO % 10.5 % (1.0-6.0); PLATELET COUNT 346 10^3/uL (120.0-450.0); RED CELL DISTRIBUTION WIDTH 13.3 % (11.5-14.5); WHITE BLOOD COUNT 5.7 10^3/ul (4.5-11.0)
[2016-08-20 06:26] LABS: ALB/GLOB RATIO 1.1 (1.1-1.8); ALKALINE PHOSPHATASE 75 U/L (38-133); ALT/SGPT 92 U/L (7-56); AST/SGOT 103 U/L (15-39); BILIRUBIN,TOTAL 0.3 mg/dL (0.2-1.3); BLOOD UREA NITROGEN 11 mg/dL (7-21); CALCIUM 9.3 mg/dL (8.4-10.5); CARBON DIOXIDE 27 mmol/L (21-33); CHLORIDE 103 mmol/L (95-110); GFR AFRICAN-AMERICAN > 60; GLUCOSE,RANDOM 103 mg/dL (70-110); POTASSIUM 4.1 mmol/L (3.6-5.0); SODIUM 140 mmol/L (132-148); TOTAL PROTEIN 7.3 g/dL (5.8-8.3)
[2016-08-20] MEDS: Insulin Lispro (humaLOG) LOW Coverage SC SCH ×4 (06:33→21:56)
--- NOTE | 2016-08-20 07:51 | CP.PCM.HP ---
<Bhavin Denny - Last Filed: 08/20/16 12:18> History of Present Illness - History of Present Illness History of Present Illness: HPI: 70 yo F w/ PMHx of HTN, RA, DM, COPD and diverticulitis presents to the hospital with abdominal pain that started 10 days ago. Patient reports it began in the upper gastric region and moved to the lower abdomen. A CT abd/pel showed acute diverticulitis of the sigmoid colon, inflammatory changes in adjacent fat planes. She was placed on IV fluids, liquid diet, pain control, and ID and GI were consulted. She has been treated with IV antibiotics in the hospital for four days. Her symptoms improved on IV antibiotics. She has been on a liquid diet which was advanced to a regular diet. She denies any chills, chest pain, dysuria, constipation, diarrhea, vomiting. PMHx: HTN, RA, hypothyroidism, diverticulosis, kidney stone, dermoid cyst, hyperparathyroidism, lactose intolerance, DM II, COPD PSHx/hosp: fibrous tumor removed 1995, total knee replacement 2010 Allergies: PCN, levoquin, ciprofloxacin, iodine, shellfish, fish Fam hx: mom COPD, DM. dad- DM Social hx: former smoker quit in 1999, 1.5ppd for 41 yrs (62 pack years), denies EtOH, denies illicit drugs. Drinks 16oz of coffee daily. Lives with . Retired, worked with [employer]. Meds: xopenex, Qvar, tofacitinib citrate, metoprolol, synthroid PMD: Dr. Schultz Present on Admission - Present on Admission Any Indicators Present on Admission: No Review of Systems - Constitutional Constitutional: absent: Chills, Fever - EENT Eyes: absent: Change in Vision Ears: absent: Decreased Hearing Nose/Mouth/Throat: absent: Dysphagia, Sore Throat - Cardiovascular Cardiovascular: absent: Chest Pain, Dyspnea, Edema - Respiratory Respiratory: absent: Cough, Dyspnea - Gastrointestinal Gastrointestinal: Abdominal Pain (improving). absent: Constipation, Cramping, Nausea, Vomiting - Genitourinary Genitourinary: absent: Dysuria - Reproductive: Female Reproductive:Female: Post Menopausal - Menstruation Menstruation: Post Menopausal - Musculoskeletal Musculoskeletal: absent: Neck Pain, Numbness, Stiffness, Tingling - Integumentary Integumentary: absent: Lesions, Wounds - Neurological Neurological: absent: Dizziness, Tingling, Weakness - Psychiatric Psychiatric: absent: Anxiety, Depression - Endocrine Endocrine: absent: Fatigue, Palpitations - Hematologic/Lymphatic Hematologic: absent: Easy Bleeding, Lymphadenopathy Past Patient History - Infectious Disease Hx of Infectious Diseases: None - Tetanus Immunizations Tetanus Immunization: Unknown - Past Social History Smoking Status: Former Smoker Alcohol: None Drugs: Denies Home Situation {Lives}: With Family - CARDIAC Hx Pacemaker: No - PULMONARY Hx Chronic Obstructive Pulmonary Disease (COPD): Yes - NEUROLOGICAL Hx Paralysis: No - HEENT Hx HEENT Problems: No - RENAL Hx Chronic Kidney Disease: Yes (RENAL STONE?) - ENDOCRINE/METABOLIC Hx Endocrine Disorders: No - HEMATOLOGICAL/ONCOLOGICAL Hx Blood Transfusions: No Hx Blood Transfusion Reaction: No - INTEGUMENTARY Hx Dermatological Problems: No - MUSCULOSKELETAL/RHEUMATOLOGICAL Hx Falls: No - GASTROINTESTINAL Hx Gastrointestinal Disorders: Yes (ABDOMINAL SX WITH H/O PERITONITIS) Hx Diverticulitis: Yes - GENITOURINARY/GYNECOLOGICAL Hx Reproductive Disorders: Yes (hx fibroids had sx) - PSYCHIATRIC Hx Emotional Abuse: No Hx Physical Abuse: No Hx Substance Use: No - SURGICAL HISTORY Hx Orthopedic Surgery: Yes (rt knee replacement) - ANESTHESIA Hx Anesthesia Reactions: No Hx Malignant Hyperthermia: No Meds Allergies/Adverse Reactions: Allergies Allergy/AdvReac Type Severity Reaction Status Date / Time ciprofloxacin [From Cipro] Allergy RASH Verified 08/19/16 12:49 ciprofloxacin HCl Allergy RASH Verified 08/19/16 12:49 [From Cipro] FISH Allergy ANAPHYLAXIS Verified 08/19/16 12:49 iodine Allergy ANAPHYLAXIS Verified 08/19/16 12:49 levofloxacin Allergy ANAPHYLAXIS Verified 08/19/16 12:49 Penicillins Allergy ANAPHYLAXIS Verified 08/19/16 12:49 shellfish derived Allergy ANAPHYLAXIS Verified 08/19/16 12:49 Physical Exam - Constitutional Appears: Non-toxic, No Acute Distress - Head Exam Head Exam: ATRAUMATIC, NORMOCEPHALIC - Eye Exam Eye Exam: EOMI, Normal appearance, PERRL Pupil Exam: NORMAL ACCOMODATION, PERRL - ENT Exam ENT Exam: Mucous Membranes Moist, Normal Oropharynx (dentures in place) - Neck Exam Neck exam: Positive for: Normal Inspection. Negative for: Tenderness, Thyromegaly - Respiratory Exam Respiratory Exam: Clear to Auscultation Bilateral, NORMAL BREATHING PATTERN. absent: Rales, Rhonchi, Wheezes - Cardiovascular Exam Cardiovascular Exam: REGULAR RHYTHM, +S1, +S2. absent: Gallop, Rubs, Systolic Murmur - GI/Abdominal Exam GI & Abdominal Exam: Soft, Tenderness (RUQ and LLQ). absent: Distended, Firm, Guarding, Rebound - Extremities Exam Extremities exam: Positive for: normal capillary refill, normal inspection, pedal pulses present. Negative for: pedal edema, tenderness - Back Exam Back exam: NORMAL INSPECTION. absent: rash noted, tenderness - Neurological Exam Neurological exam: Alert, CN II-XII Intact, Oriented x3, Reflexes Normal - Psychiatric Exam Psychiatric exam: Normal Affect, Normal Mood - Skin Skin Exam: Dry, Intact, Normal Color, Warm Results - Vital Signs Recent Vital Signs: Last Vital Signs Temp 97.9 F 08/19/16 16:22 Pulse 72 08/19/16 16:22 Resp 18 08/19/16 16:22 BP 130/81 08/19/16 16:22 Pulse Ox 97 08/19/16 16:20 - Labs Result Diagrams: 08/20/16 06:00 08/20/16 06:00 Labs: Laboratory Results - last 24 hr 08/19/16 08/19/16 08/20/16 17:00 21:35 06:00 WBC 5.7 RBC 4.24 Hgb 12.5 Hct 37.3 MCV 88.0 MCH 29.5 MCHC 33.5 RDW 13.3 Plt Count 346 MPV 9.0 Gran % 56.4 Lymph % (Auto) 28.0 Titus % (Auto) 10.5 H Eos % (Auto) 4.4 Baso % (Auto) 0.7 Gran # 3.22 Lymph # 1.6 Titus # 0.6 Eos # 0.3 Baso # 0.04 Sodium 140 Potassium 4.1 Chloride 103 Carbon Dioxide 27 Anion Gap 14 BUN 11 Creatinine 0.7 Est GFR ( Amer) > 60 Est GFR (Non-Af Amer) > 60 POC Glucose (mg/dL) 112 H 121 H Random Glucose 103 Calcium 9.3 Total Bilirubin 0.3 AST 103 H ALT 92 H Alkaline Phosphatase 75 Total Protein 7.3 Albumin 3.9 Globulin 3.4 Albumin/Globulin Ratio 1.1 Assessment & Plan - Assessment and Plan (Free Text) Assessment: 70 yo F w/ PMHx of HTN, RA, DM, COPD and diverticulitis presents with abdominal pain and found to have diverticulitis on abdominal CT. Seen by ID and GI. In TCU for IV antibiotics due to multiple abx allergies. Mild rise in LFT's. Plan: Diverticulitis * CT abd/pel: acute diverticulitis of the sigmoid colon. Inflammatory changes in adjacent fat planes. * CXR: no active disease * ID consulted: aztreonam and flagyl IV as per Dr. García * GI consulted: advance diet slowly and monitor pain * Zofran to control nausea * Regular diet * pain control with Tylenol * remains afebrile without leukocytosis * will need to continue IV abx due to multiple abx allergies Hx of COPD * continue home Qvar, xopenex * duoneb prn HTN * Currently wnl * continue metoprolol * EKG normal sinus rhythm DM * Hgb a1c 6.6 * insulin sliding scale regular * regular accuchecks Elevated LFT's * likely due to abx as patient not taking tylenol * continue to monitor PPX * scd's * protonix Assessment and plan discussed with attending physician. <Radu NEWELL,Viry - Last Filed: 08/20/16 13:59> Results - Vital Signs Recent Vital Signs: Last Vital Signs Temp 97.9 F 08/19/16 16:22 Pulse 77 08/20/16 09:00 Resp 18 08/19/16 16:22 BP 123/69 08/20/16 09:00 Pulse Ox 97 08/19/16 16:20 - Labs Result Diagrams: 08/20/16 06:00 08/20/16 06:00 Labs: Laboratory Results - last 24 hr 08/19/16 08/19/16 08/20/16 17:00 21:35 06:00 WBC 5.7 RBC 4.24 Hgb 12.5 Hct 37.3 MCV 88.0 MCH 29.5 MCHC 33.5 RDW 13.3 Plt Count 346 MPV 9.0 Gran % 56.4 Lymph % (Auto) 28.0 Titus % (Auto) 10.5 H Eos % (Auto) 4.4 Baso % (Auto) 0.7 Gran # 3.22 Lymph # 1.6 Titus # 0.6 Eos # 0.3 Baso # 0.04 Sodium 140 Potassium 4.1 Chloride 103 Carbon Dioxide 27 Anion Gap 14 BUN 11 Creatinine 0.7 Est GFR ( Amer) > 60 Est GFR (Non-Af Amer) > 60 POC Glucose (mg/dL) 112 H 121 H Random Glucose 103 Calcium 9.3 Total Bilirubin 0.3 AST 103 H ALT 92 H Alkaline Phosphatase 75 Total Protein 7.3 Albumin 3.9 Globulin 3.4 Albumin/Globulin Ratio 1.1 Attending/Attestation - Attestation I have personally seen and examined this patient.: Yes I have fully participated in the care of the patient.: Yes I have reviewed all pertinent clinical information: Yes Notes (Text): Patient was seen and examined with medical art therapist .Agreed with resident assessment and plan. 70 year old female with sigmoid diverticulitis. Patient symptoms are improved, on iv azactam and flagy day # 5 as patient is allergic to Penicillin and quinolones, no oral antibiotics available, she is admitted in TCU to complete IV antibiotics.Patient is tolerating diet. LFT (mildly high ) went high today, likely due to Azactum, we will monitor, Avoid hepatotoxic medication, will discontinue tylenol.,if LFT worsen, antibiotics will need to changed, ID on case, Patient is70 year old female with sigmoid diverticulitis. Improved on iv azactam and flagy. . Management plan was discussed in detail with patient Education was provided. 08/20/16 13:58 08/20/16 13:58
[2016-08-20] MEDS: Metoprolol Succinate 50 mg XL Tab PO SCH ×2 (09:00→09:08)
[2016-08-20] MEDS: TOFACITINIB 5 MG PO SCH ×2 (09:05→21:56)
[2016-08-20] MEDS: LEVALBUTEROL TARTRATE IH SCH ×4 (09:07→21:56)
[2016-08-20] MEDS: BECLOMETHASONE DIPROPIONATE IH SCH ×2 (09:07→17:02)
--- NOTE | 2016-08-20 18:35 | CP.PCM.PN ---
Subjective - Date & Time of Evaluation Date of Evaluation: 08/20/16 Time of Evaluation: 17:45 - Subjective Subjective: Infectious Disease Follow Up: August 20, 2016 70 yo female I last saw in September 2013 presents to [facility] ER for left flank pain for the past 7 days. She denies fevers, chills, nausea, vomiting, diarrhea. Currently afebrile and no appreciable leukocytosis. Urinalysis is NOT suggestive of a UTI. Chest X-ray does not display any pneumonia. CT of the Abdomen suggests acute diverticulitis. Difficulty in antibiotic treatment due to the multiple allergies. She feels better today. On day 5 of Aztreonam. In TRCU now. Noted elevation in LFTs/transaminases. Objective - Vital Signs/Intake and Output Vital Signs (last 24 hours): Temp Pulse Resp BP Pulse Ox 98.8 F 68 20 141/79 94 L 08/20/16 16:00 08/20/16 16:00 08/20/16 16:00 08/20/16 16:00 08/20/16 16:00 - Medications Medications: Current Medications Albuterol/Ipratropium (Duoneb 3 Mg/0.5 Mg (3 Ml) Ud) 3 ml IH [id number] PRN; Protocol PRN Reason: Shortness of Breath Home Med (Home Med) 1 unit PO Q12 [facility] Last Admin: 08/20/16 09:05 Dose: 1 unit Aztreonam (Azactam 1 Gm) 100 mls @ 100 mls/hr IVPB Q8 [facility]UDINE PRN Reason: Protocol Stop: 08/22/16 14:01 Last Admin: 08/20/16 14:00 Dose: 100 mls/hr Metronidazole (Flagyl) 100 mls @ 100 mls/hr IVPB Q8 CLAUDINE PRN Reason: Protocol Stop: 08/22/16 14:01 Last Admin: 08/20/16 14:02 Dose: 100 mls/hr Insulin Human Lispro (Humalog Low) 0 units SC ACHS CLAUDINE PRN Reason: Protocol Last Admin: 08/20/16 16:58 Dose: Not Given Levothyroxine Sodium (Synthroid) 112 mcg PO 0600 [facility]INE PRN Reason: Protocol Metoprolol Succinate (Toprol Xl) 50 mg PO DAILY [facility]INE PRN Reason: Protocol Last Admin: 08/20/16 09:08 Dose: Not Given Non-Formulary Medication (Levalbuterol Tartrate [Xopenex Hfa]) 2 puff IH QID [facility] Last Admin: 08/20/16 17:02 Dose: Not Given Non-Formulary Medication (Beclomethasone Dipropionate [Qvar 80 Mcg]) 2 puff IH BID [facility] Last Admin: 08/20/16 17:02 Dose: Not Given Ondansetron HCl (Zofran Inj) 4 mg IVP Q6H PRN; Protocol PRN Reason: Nausea/Vomiting Pantoprazole Sodium (Protonix Ec Tab) 40 mg PO 0630 [facility] PRN Reason: Protocol Last Admin: 08/20/16 05:41 Dose: 40 mg - Labs Labs: 08/20/16 06:00 08/20/16 06:00 - Constitutional Appears: Non-toxic, No Acute Distress, Chronically Ill - Head Exam Head Exam: ATRAUMATIC, NORMOCEPHALIC - Eye Exam Eye Exam: EOMI, PERRL Pupil Exam: NORMAL ACCOMODATION, PERRL - ENT Exam ENT Exam: Mucous Membranes Moist, Normal External Ear Exam, TM's Normal Bilaterally - Neck Exam Neck Exam: Full ROM, Normal Inspection - Respiratory Exam Respiratory Exam: Clear to Ausculation Bilateral, NORMAL BREATHING PATTERN. absent: Rales, Rhonchi, Wheezes - Cardiovascular Exam Cardiovascular Exam: REGULAR RHYTHM, RRR, +S1, +S2 - GI/Abdominal Exam GI & Abdominal Exam: Soft, Normal Bowel Sounds - Extremities Exam Extremities Exam: Full ROM, Normal Inspection - Neurological Exam Neurological Exam: Alert, Awake, CN II-XII Intact, Oriented x3 - Psychiatric Exam Psychiatric exam: Normal Affect, Normal Mood - Skin Skin Exam: Intact, Normal Color Assessment and Plan - Assessment and Plan (Free Text) Assessment: 70 yo female with previous hospitalizations in the distant past presenting with diverticulitis. Patient with multiple antibiotic allergies. Would suggest use of aztreonam for this patient as meropenem is a carbapenem which is closely related to PCN drugs. There is a 15-20 % chance of cross reactivity. Will change to aztreonam and Flagyl for IV antibiotic treatment. Supportive care. Acute diverticulitis. Day 5 of treatment. Currently in TRCU now. With the elevation of the LFTs, will stop Flagyl at this time. Thank you for allowing me to participate in the care of the patient, we will follow with you.
--- NOTE | 2016-08-21 05:34 | PN ---
DATE: 08/20/2016 SUBJECTIVE: This patient was seen and evaluated earlier today. PHYSICAL EXAMINATION: VITAL SIGNS: Temperature is 98.8, pulse is 68, blood pressure is 141/79, respirations 94. HEENT: Atraumatic, anicteric. NECK: Supple. HEART: S1, S2 heard. LUNGS: Bilateral air entry present. ABDOMEN: Soft. There is mild tenderness on deep palpation in the left lower quadrant. Otherwise, u nremarkable. EXTREMITIES: No edema, no cyanosis. LABORATORY DATA: AST shows mild elevation at 103, ALT 92. Patient was seen by . IMPRESSION: Acute diverticulitis, chronic gastroesophageal reflux disease, chronic obstructive pulmo nary disease, diabetes mellitus, hypothyroidism, hypertension. We will continue the . It is dany sonable . We will follow up. The patient has been on only Azactam. Patient has multiple sai rgies. Flagyl has been discontinued by ID. We will continue to closely follow up her care and sugge st further management based on the clinical course. Meanwhile, we will request the patient have an u ltrasound scan of the abdomen. Brandon Mills MD cc: [id number] TT: 08/21/2016 05:34:08 Confirmation # [id number] Dictation # [id number] cesia
[2016-08-21] MEDS: Aztreonam 1 Gm in NS 100mL 100 ML IVPB SCH ×3 (05:54→21:56)
[2016-08-21] MEDS: Levothyroxine 112 MCG TAB PO SCH (05:54)
[2016-08-21] MEDS: Pantoprazole 40 mg EC Tab PO SCH (05:54)
[2016-08-21 07:46] LABS: ADD MANUAL DIFF? NO
[2016-08-21 07:49] LABS: BASO # 0.03 K/mm3 (0.0-2.0); BASO % 0.5 % (0.0-3.0); EOS # 0.2 (0.0-0.7); EOS % 3.3 % (1.5-5.0); GRAN # 3.76 (1.4-6.5); GRAN % 58.4 % (50.0-68.0); LYMPH # 1.9 (1.2-3.4); LYMPH % 28.9 % (22.0-35.0); MEAN CORPUSCULAR HEMOGLOBIN 29.4 pg (25.0-35.0); MEAN CORPUSCULAR HGB CONC 33.4 g/dl (31.0-37.0); MEAN PLATELET VOLUME 9.2 fl (7.0-11.0); MONO # 0.6 (0.1-0.6); MONO % 8.9 % (1.0-6.0); PLATELET COUNT 375 10^3/uL (120.0-450.0); RED CELL DISTRIBUTION WIDTH 13.5 % (11.5-14.5); WHITE BLOOD COUNT 6.4 10^3/ul (4.5-11.0)
[2016-08-21 08:10] LABS: ALB/GLOB RATIO 1.1 (1.1-1.8); ALKALINE PHOSPHATASE 75 U/L (38-133); ALT/SGPT 118 U/L (7-56); AST/SGOT 105 U/L (15-39); BILIRUBIN,TOTAL 0.3 mg/dL (0.2-1.3); BLOOD UREA NITROGEN 15 mg/dL (7-21); CALCIUM 9.3 mg/dL (8.4-10.5); CARBON DIOXIDE 28 mmol/L (21-33); CHLORIDE 104 mmol/L (95-110); GFR AFRICAN-AMERICAN > 60; GLUCOSE,RANDOM 102 mg/dL (70-110); POTASSIUM 4.2 mmol/L (3.6-5.0); SODIUM 141 mmol/L (132-148); TOTAL PROTEIN 7.1 g/dL (5.8-8.3)
[2016-08-21] MEDS: Insulin Lispro (humaLOG) LOW Coverage SC SCH ×4 (08:15→21:38)
[2016-08-21] MEDS: LEVALBUTEROL TARTRATE IH SCH ×3 (10:29→17:11)
[2016-08-21] MEDS: Metoprolol Succinate 50 mg XL Tab PO SCH (10:29)
[2016-08-21] MEDS: BECLOMETHASONE DIPROPIONATE IH SCH ×2 (10:31→17:11)
[2016-08-21] MEDS: TOFACITINIB 5 MG PO SCH ×2 (10:31→21:38)
--- NOTE | 2016-08-21 12:29 | US ---
HISTORY: abnormal LFT COMPARISON: None. TECHNIQUE: Sonographic evaluation of the abdomen. FINDINGS: LIVER: Measures 21.2 cm. This is enlarged. Diffusely increased echogenicity of the liver parenchyma. Consistent with fatty infiltration. Smooth contour. No mass. No biliary ductal dilatation. GALLBLADDER: Multiple gallstones are identified. Gallbladder wall is not thickened. There is no pericholecystic fluid. There is no sonographic Mott's sign demonstrated. COMMON BILE DUCT: Measures 4 mm. No stones. No dilatation. PANCREAS: Unremarkable as visualized. No mass. No ductal dilatation. RIGHT KIDNEY: Measures 11.1cm. Normal echogenicity. No calculus or hydronephrosis. Two small mid right renal cortical cysts, 2.5 x 2.6 x 2.8 cm and 5 x 9 x 10 mm. No solid mass. LEFT KIDNEY: Measures 11.2cm. Normal echogenicity. No calculus, mass, or hydronephrosis. SPLEEN: Normal in size and contour. No mass. AORTA: No aneurysmal dilatation. IVC: Unremarkable. OTHER FINDINGS: None. IMPRESSION: Cholelithiasis. No sonographic evidence of cholecystitis. Hepatomegaly with fatty infiltration of the liver. Two small right renal cortical cysts.
--- NOTE | 2016-08-21 16:11 | CP.PCM.PN ---
Subjective - Date & Time of Evaluation Date of Evaluation: 08/21/16 Time of Evaluation: 16:07 - Subjective Subjective: Infectious Disease Follow Up: August 21, 2016 70 yo female I last saw in September 2013 [place] [facility] [place] left flank pain for the past 7 days. She denies fevers, chills, nausea, vomiting, diarrhea. Currently afebrile and no appreciable leukocytosis. Urinalysis is NOT suggestive of a UTI. Chest X-ray does not display any pneumonia. CT of the Abdomen suggests acute diverticulitis. Difficulty in antibiotic treatment due to the multiple allergies. She feels better today. On day 6 of Aztreonam. In TRCU now. Noted elevation in LFTs/transaminases. Objective - Vital Signs/Intake and Output Vital Signs (last 24 hours): Temp Pulse Resp BP Pulse Ox 97.9 F 87 18 126/79 94 L 08/21/16 10:00 08/21/16 10:29 08/21/16 10:00 08/21/16 10:29 08/20/16 16:00 Intake and Output: 08/21/16 08/21/16 06:59 18:59 Intake Total 420 Balance 420 - Medications Medications: Current Medications Albuterol/Ipratropium (Duoneb 3 Mg/0.5 Mg (3 Ml) Ud) 3 ml IH [id number] PRN; Protocol PRN Reason: Shortness of Breath Home Med (Home Med) 1 unit PO Q12 [facility] Last Admin: 08/21/16 10:31 Dose: 1 unit Aztreonam (Azactam 1 Gm) 100 mls @ 100 mls/hr IVPB Q8 [facility] PRN Reason: Protocol Stop: 08/22/16 14:01 Last Admin: 08/21/16 13:30 Dose: 100 mls/hr Insulin Human Lispro (Humalog Low) 0 units SC ACHS [facility] PRN Reason: Protocol Last Admin: 08/21/16 12:27 Dose: Not Given Levothyroxine Sodium (Synthroid) 112 mcg PO 0600 [facility] PRN Reason: Protocol Last Admin: 08/21/16 05:54 Dose: 112 mcg Metoprolol Succinate (Toprol Xl) 50 mg PO DAILY [facility] PRN Reason: Protocol Last Admin: 08/21/16 10:29 Dose: 50 mg Non-Formulary Medication (Levalbuterol Tartrate [Xopenex Hfa]) 2 puff IH QID [facility] Last Admin: 08/21/16 13:31 Dose: Not Given Non-Formulary Medication (Beclomethasone Dipropionate [Qvar 80 Mcg]) 2 puff IH BID [facility] Last Admin: 08/21/16 10:31 Dose: Not Given Ondansetron HCl (Zofran Inj) 4 mg IVP Q6H PRN; Protocol PRN Reason: Nausea/Vomiting Pantoprazole Sodium (Protonix Ec Tab) 40 mg PO 0630 [facility] PRN Reason: Protocol Last Admin: 08/21/16 05:54 Dose: 40 mg - Labs Labs: 08/21/16 07:30 08/21/16 07:30 - Constitutional Appears: Non-toxic, No Acute Distress, Cachectic - Head Exam Head Exam: ATRAUMATIC, NORMOCEPHALIC - Eye Exam Eye Exam: EOMI, PERRL Pupil Exam: NORMAL ACCOMODATION, PERRL - ENT Exam ENT Exam: Mucous Membranes Moist, Normal External Ear Exam, TM's Normal Bilaterally - Neck Exam Neck Exam: Full ROM, Normal Inspection - Respiratory Exam Respiratory Exam: Clear to Ausculation Bilateral, Rales, NORMAL BREATHING PATTERN. absent: Rhonchi, Wheezes - Cardiovascular Exam Cardiovascular Exam: REGULAR RHYTHM, RRR, +S1, +S2 - GI/Abdominal Exam GI & Abdominal Exam: Soft, Tenderness, Normal Bowel Sounds. absent: Distended - Extremities Exam Extremities Exam: Full ROM, Normal Inspection - Neurological Exam Neurological Exam: Alert, Awake, CN II-XII Intact, Oriented x3 - Psychiatric Exam Psychiatric exam: Normal Affect, Normal Mood - Skin Skin Exam: Intact, Normal Color Assessment and Plan - Assessment and Plan (Free Text) Assessment: 70 yo female with previous hospitalizations in the distant past presenting with diverticulitis. Patient with multiple antibiotic allergies. Would suggest use of aztreonam for this patient as meropenem is a carbapenem which is closely related to PCN drugs. There is a 15-20 % chance of cross reactivity. Will change to aztreonam and Flagyl for IV antibiotic treatment. Supportive care. Acute diverticulitis. Day 6 of treatment. Currently in TRCU now. With the elevation of the LFTs, will stop Flagyl at this time. Transaminases slightly uptrended today. Thank you for allowing me to participate in the care of the patient, we will follow with you.
--- NOTE | 2016-08-21 17:02 | PN ---
DATE: 08/21/2016 HISTORY OF PRESENT ILLNESS: Seen and examined at the bedside this afternoon. She is resting in bed. No complaints of nausea, vomiting, fever, or chills. Occasionally, she gets abdominal discomfort, b ut not on a regular basis. She is moving her bowels, having formed stool. No melena or bright red b lood per rectum. She went for an abdominal ultrasound today for evaluation of elevated liver enzymes , which did show gallstones, but negative did show some fatty infiltration of the liver. The c ommon bile duct measures 4 mm. No stones or dilatation. VITAL SIGNS: Temperature is 97.3, blood pressure is 133/88, pulse rate 86, respirations 18, 97 on ro om air. LABORATORY DATA: Today, WBC 6.4, H and H is 12.7, hematocrit 38.0, platelets 375. Sodium is 141, K 4.2, BUN 15, creatinine 0.7. Her total bilirubin is 0.3, AST 105, ALT 118, alkaline phosphatase is 7 5. PHYSICAL EXAMINATION: HEENT: Sclerae anicteric. NECK: Supple. CARDIAC: S1, S2. LUNGS: Sounds are clear. ABDOMEN: With bowel sounds, soft. Some mild tenderness towards the right mid abdomen, but no reboun d, guarding, or organomegaly. EXTREMITIES: No edema. NEUROLOGIC: Awake, alert, and oriented. ASSESSMENT: This is a 70-year-old female with acute diverticulitis. Abdominal pain is improving. S he also is noted to have elevated liver enzymes. Abdominal ultrasound was done, which showed gallsto luis fernando and fatty liver, no dilatation or stones in the common bile duct. The patient is on antibiotics of Azactam. Her Flagyl was discontinued. The patient states she does have a history of rheumatoid a rthritis and was taking Xeljanz outpatient, which patient states she is not taking at this time. She also has chronic gastroesophageal reflux disease, chronic obstructive pulmonary disease, diabetes me llitus, hypertension. PLAN: We will continue to trend liver enzymes. We will request for a hepatitis panel. She is on ant ibiotics of Azactam. She has multiple allergies. Continue GI prophylaxis. Continue Protonix 40 as per ID. The patient also with history of UTI, Klebsiella pneumoniae. The patient was seen and case discussed with Dr. Mills. Millicent CHAVEZ cc: [id number] TT: 08/21/2016 17:01:17 Confirmation # [id number] Dictation # [id number] ln
[2016-08-22] MEDS: Insulin Lispro (humaLOG) LOW Coverage SC SCH ×4 (08:17→21:59)
[2016-08-22 08:27] LABS: ALB/GLOB RATIO 1.2 (1.1-1.8); BILIRUBIN,DIRECT 0.3 mg/dL (0.0-0.4); BILIRUBIN,TOTAL 0.3 mg/dL (0.2-1.3)
[2016-08-22] MEDS: BECLOMETHASONE DIPROPIONATE IH SCH ×2 (09:35→17:32)
[2016-08-22] MEDS: Metoprolol Succinate 50 mg XL Tab PO SCH (09:36)
[2016-08-22] MEDS: TOFACITINIB 5 MG PO SCH ×2 (09:37→21:59)
[2016-08-22] MEDS: LEVALBUTEROL TARTRATE IH SCH (12:08)
--- NOTE | 2016-08-22 14:05 | CP.PCM.PN ---
<Bhavin Denny - Last Filed: 08/22/16 14:02> Subjective - Date & Time of Evaluation Date of Evaluation: 08/22/16 Time of Evaluation: 09:00 - Subjective Subjective: Dr. Denny PGY 1 Hospitalist Note Patient seen and evaluated in TCU. She states she has been doing well and been active doing a puzzle in the common room. She states she had some abdominal cramping at night as though she had eaten a lot of dairy. Apparently this gives her cramps. She had a bowel movement which alleviated the cramping. She denies any blood, mucus, dark stool, or pain on defecation. She denies any fever,nausea , vomiting, constipation, diarrhea, chills, SOB or palpitations. No adverse events reported by nursing. Objective - Vital Signs/Intake and Output Vital Signs (last 24 hours): Temp Pulse Resp BP Pulse Ox 97.9 F 87 18 144/69 94 L 08/22/16 10:00 08/22/16 10:00 08/22/16 10:00 08/22/16 10:00 08/22/16 10:00 - Medications Medications: Current Medications Albuterol/Ipratropium (Duoneb 3 Mg/0.5 Mg (3 Ml) Ud) 3 ml IH [id number] PRN; Protocol PRN Reason: Shortness of Breath Home Med (Home Med) 1 unit PO Q12 [facility] Last Admin: 08/22/16 09:37 Dose: Not Given Insulin Human Lispro (Humalog Low) 0 units SC ACHS [facility] PRN Reason: Protocol Last Admin: 08/22/16 12:08 Dose: Not Given Levothyroxine Sodium (Synthroid) 112 mcg PO 0600 [facility] PRN Reason: Protocol Last Admin: 08/21/16 05:54 Dose: 112 mcg Metoprolol Succinate (Toprol Xl) 50 mg PO DAILY [facility] PRN Reason: Protocol Last Admin: 08/22/16 09:36 Dose: 50 mg Non-Formulary Medication (Levalbuterol Tartrate [Xopenex Hfa]) 2 puff IH QID [facility] Last Admin: 08/22/16 12:08 Dose: Not Given Non-Formulary Medication (Beclomethasone Dipropionate [Qvar 80 Mcg]) 2 puff IH BID [facility] Last Admin: 08/22/16 09:35 Dose: Not Given Ondansetron HCl (Zofran Inj) 4 mg IVP Q6H PRN; Protocol PRN Reason: Nausea/Vomiting Pantoprazole Sodium (Protonix Ec Tab) 40 mg PO 0630 [facility] PRN Reason: Protocol Last Admin: 08/21/16 05:54 Dose: 40 mg - Labs Labs: 08/21/16 07:30 08/21/16 07:30 - Constitutional Appears: Non-toxic, No Acute Distress - Head Exam Head Exam: ATRAUMATIC, NORMOCEPHALIC - Eye Exam Eye Exam: EOMI, Normal appearance, PERRL Pupil Exam: NORMAL ACCOMODATION, PERRL - ENT Exam ENT Exam: Mucous Membranes Moist, Normal Oropharynx - Respiratory Exam Respiratory Exam: Clear to Ausculation Bilateral, NORMAL BREATHING PATTERN. absent: Rales, Rhonchi, Wheezes - Cardiovascular Exam Cardiovascular Exam: REGULAR RHYTHM, +S1, +S2. absent: Gallop, Rubs, Murmur - GI/Abdominal Exam GI & Abdominal Exam: Soft, Normal Bowel Sounds. absent: Distended, Guarding, Tenderness, Rebound - Extremities Exam Extremities Exam: Normal Capillary Refill, Normal Inspection. absent: Pedal Edema, Tenderness - Neurological Exam Neurological Exam: Alert, Awake, CN II-XII Intact, Normal Gait, Oriented x3 - Psychiatric Exam Psychiatric exam: Normal Affect, Normal Mood - Skin Skin Exam: Dry, Intact, Normal Color, Warm Assessment and Plan - Assessment and Plan (Free Text) Assessment: 70 yo F w/ PMHx of HTN, RA, DM, COPD and diverticulitis presents with abdominal pain and found to have diverticulitis on abdominal CT. Seen by ID and GI. In TCU for IV antibiotics due to multiple abx allergies. Elevated transaminases improving. Plan: Diverticulitis * CT abd/pel: acute diverticulitis of the sigmoid colon. Inflammatory changes in adjacent fat planes. * CXR: no active disease * ID consulted: * Continue aztreonam and stop flagyl * As per Dr. García, Flagyl may be cause in elevated LFT's * GI consulted: advanced diet and monitor pain * Zofran to control nausea * Regular diet * pain control with Tylenol * remains afebrile without leukocytosis * will need to continue IV abx due to multiple abx allergies Hx of COPD * continue home Qvar, xopenex * duoneb prn HTN * Currently wnl * continue metoprolol * EKG normal sinus rhythm DM * Hgb a1c 6.6 * insulin sliding scale regular * regular accuchecks Elevated LFT's * likely due to abx as patient not taking tylenol * Stopped Flagyl as per ID * continue to monitor PPX * scd's * protonix Assessment and plan discussed with attending physician. <Dari Scott - Last Filed: 08/22/16 16:52> Objective - Vital Signs/Intake and Output Vital Signs (last 24 hours): Temp Pulse Resp BP Pulse Ox 97.9 F 87 18 144/69 94 L 08/22/16 10:00 08/22/16 10:00 08/22/16 10:00 08/22/16 10:00 08/22/16 10:00 - Medications Medications: Current Medications Albuterol/Ipratropium (Duoneb 3 Mg/0.5 Mg (3 Ml) Ud) 3 ml IH [id number] PRN; Protocol PRN Reason: Shortness of Breath Home Med (Home Med) 1 unit PO Q12 [facility] Last Admin: 08/22/16 09:37 Dose: Not Given Insulin Human Lispro (Humalog Low) 0 units SC ACHS [facility] PRN Reason: Protocol Last Admin: 08/22/16 12:08 Dose: Not Given Levothyroxine Sodium (Synthroid) 112 mcg PO 0600 [facility] PRN Reason: Protocol Last Admin: 08/21/16 05:54 Dose: 112 mcg Metoprolol Succinate (Toprol Xl) 50 mg PO DAILY [facility] PRN Reason: Protocol Last Admin: 08/22/16 09:36 Dose: 50 mg Non-Formulary Medication (Levalbuterol Tartrate [Xopenex Hfa]) 2 puff IH QID [facility] Last Admin: 08/22/16 12:08 Dose: Not Given Non-Formulary Medication (Beclomethasone Dipropionate [Qvar 80 Mcg]) 2 puff IH BID [facility] Last Admin: 08/22/16 09:35 Dose: Not Given Ondansetron HCl (Zofran Inj) 4 mg IVP Q6H PRN; Protocol PRN Reason: Nausea/Vomiting Pantoprazole Sodium (Protonix Ec Tab) 40 mg PO 0630 [facility] PRN Reason: Protocol Last Admin: 08/21/16 05:54 Dose: 40 mg - Labs Labs: 08/21/16 07:30 08/21/16 07:30 Attending/Attestation - Attestation I have personally seen and examined this patient.: Yes I have fully participated in the care of the patient.: Yes I have reviewed all pertinent clinical information, including history, physical exam and plan: Yes Notes (Text): 08/22/16 16:50 70 year old female with who presented with abdominal pain. She was found to have sigmoid diverticulitis and started on iv antibiotics. Her symptoms have improved. She is being followed by ID and GI. She is on aztreonam due to multiple drug allergies. Flagyl was recently discontinued due to elevated LFTs which are stable. Will continue to monitor. Hepatic ultrasound was reviewed. Dari Scott MD Hospitalist.
[2016-08-22] MEDS: Aztreonam 1 Gm in NS 100mL 100 ML IVPB SCH ×3 (14:21→22:36)
--- NOTE | 2016-08-22 16:45 | PN ---
DATE: 08/22/2016 HISTORY OF PRESENT ILLNESS: Seen and examined at the bedside earlier this afternoon. She is reporti ng regular bowel movements. No bleeding. Does occasionally have right-sided abdominal discomfort in the back, but no complaints of nausea, vomiting, fever or chills, shortness of breath, or chest pain . Tolerating a diet. VITAL SIGNS: Temperature is 97.9, blood pressure is 144/69, pulse 87, respirations 18. LABORATORY DATA: Liver enzymes: AST 60, ALT 100. This is trending down. POC glucose 103. Total bi lirubin 0.3, direct bilirubin 0.3. Serology: Hepatitis serology was all negative for A, B, and C. PHYSICAL EXAMINATION: HEENT: Sclerae are anicteric. NECK: Supple. CARDIAC: S1, S2. LUNGS: With decreased breath sounds, but good air entry. ABDOMEN: With bowel sounds, soft. Mild tenderness to right quadrant. No rebound, guarding. ASSESSMENT: A 70-year-old female with acute diverticulitis with improving abdominal discomfort. She was noted to have elevated liver enzymes, which are trending down. The patient was sent for an abdo brooke ultrasound which was revealing fatty liver and gallstones with no dilatation, no common bile du ct. The patient does have a history of rheumatoid arthritis, chronic gastroesophageal reflux disease , chronic obstructive pulmonary disease, diabetes mellitus, and hypertension. PLAN: The patient is on IV antibiotics of Azactam. She is currently off Flagyl. Continue to trend her liver enzymes, which are trending down. She is also on Protonix 40 mg daily. Continue her Zolof t. Low residual diet as tolerated. The patient was seen and case discussed with Dr. Mills. Millicent CHAVEZ cc: [id number] TT: 08/22/2016 16:44:40 Confirmation # [id number] Dictation # [id number] genevieve
--- NOTE | 2016-08-22 19:37 | CP.PCM.PN ---
Subjective - Date & Time of Evaluation Date of Evaluation: 08/22/16 Time of Evaluation: 19:33 - Subjective Subjective: Infectious Disease Follow Up: August 22, 2016 70 yo female I last saw in September 2013 presents to [facility] for left flank pain for the past 7 days. She denies fevers, chills, nausea, vomiting, diarrhea. Currently afebrile and no appreciable leukocytosis. Urinalysis is NOT suggestive of a UTI. Chest X-ray does not display any pneumonia. CT of the Abdomen suggests acute diverticulitis. Difficulty in antibiotic treatment due to the multiple allergies. She feels better today. On day 7 of Aztreonam. In TRCU now. Noted elevation in LFTs/transaminases that has been slowly downtrending now. Objective - Vital Signs/Intake and Output Vital Signs (last 24 hours): Temp Pulse Resp BP Pulse Ox 97.3 F L 82 18 137/70 99 08/22/16 16:00 08/22/16 16:00 08/22/16 16:00 08/22/16 16:00 08/22/16 16:00 - Medications Medications: Current Medications Albuterol/Ipratropium (Duoneb 3 Mg/0.5 Mg (3 Ml) Ud) 3 ml IH [id number] PRN; Protocol PRN Reason: Shortness of Breath Home Med (Home Med) 1 unit PO Q12 [facility] Last Admin: 08/22/16 09:37 Dose: Not Given Insulin Human Lispro (Humalog Low) 0 units SC ACHS [facility] PRN Reason: Protocol Last Admin: 08/22/16 17:33 Dose: Not Given Levothyroxine Sodium (Synthroid) 112 mcg PO 0600 [facility] PRN Reason: Protocol Last Admin: 08/21/16 05:54 Dose: 112 mcg Metoprolol Succinate (Toprol Xl) 50 mg PO DAILY [facility] PRN Reason: Protocol Last Admin: 08/22/16 09:36 Dose: 50 mg Non-Formulary Medication (Levalbuterol Tartrate [Xopenex Hfa]) 2 puff IH QID [facility] Last Admin: 08/22/16 12:08 Dose: Not Given Non-Formulary Medication (Beclomethasone Dipropionate [Qvar 80 Mcg]) 2 puff IH BID [facility] Last Admin: 08/22/16 17:32 Dose: Not Given Ondansetron HCl (Zofran Inj) 4 mg IVP Q6H PRN; Protocol PRN Reason: Nausea/Vomiting Pantoprazole Sodium (Protonix Ec Tab) 40 mg PO 0630 [facility] PRN Reason: Protocol Last Admin: 08/21/16 05:54 Dose: 40 mg - Labs Labs: 08/21/16 07:30 08/21/16 07:30 - Constitutional Appears: Non-toxic, No Acute Distress, Chronically Ill - Head Exam Head Exam: ATRAUMATIC, NORMOCEPHALIC - Eye Exam Eye Exam: EOMI, PERRL Pupil Exam: NORMAL ACCOMODATION, PERRL - ENT Exam ENT Exam: Mucous Membranes Moist, Normal External Ear Exam, TM's Normal Bilaterally - Neck Exam Neck Exam: Full ROM, Normal Inspection - Respiratory Exam Respiratory Exam: Clear to Ausculation Bilateral, NORMAL BREATHING PATTERN. absent: Rales, Rhonchi, Wheezes - Cardiovascular Exam Cardiovascular Exam: REGULAR RHYTHM, RRR, +S1, +S2 - GI/Abdominal Exam GI & Abdominal Exam: Soft, Normal Bowel Sounds. absent: Distended, Tenderness - Extremities Exam Extremities Exam: Full ROM, Normal Inspection - Neurological Exam Neurological Exam: Alert, Awake, CN II-XII Intact, Oriented x3 - Psychiatric Exam Psychiatric exam: Normal Affect, Normal Mood - Skin Skin Exam: Intact, Normal Color Assessment and Plan - Assessment and Plan (Free Text) Assessment: 70 yo female with previous hospitalizations in the distant past presenting with diverticulitis. Patient with multiple antibiotic allergies. Would suggest use of aztreonam for this patient as meropenem is a carbapenem which is closely related to PCN drugs. There is a 15-20 % chance of cross reactivity. Will change to aztreonam and Flagyl for IV antibiotic treatment. Supportive care. Acute diverticulitis. Day 7 of treatment. Currently in TRCU now. With the elevation of the LFTs, will stop Flagyl at this time. Transaminases elevated but slightly downtrended today. Thank you for allowing me to participate in the care of the patient, we will follow with you.
[2016-08-23] MEDS: Aztreonam 1 Gm in NS 100mL 100 ML IVPB SCH ×3 (05:59→21:59)
[2016-08-23] MEDS: Levothyroxine 112 MCG TAB PO SCH (06:00)
[2016-08-23] MEDS: Pantoprazole 40 mg EC Tab PO SCH (06:00)
[2016-08-23] MEDS: Insulin Lispro (humaLOG) LOW Coverage SC SCH ×3 (06:39→18:09)
[2016-08-23 07:27] LABS: ALB/GLOB RATIO 1.2 (1.1-1.8); BILIRUBIN,DIRECT 0.4 mg/dL (0.0-0.4); BILIRUBIN,TOTAL 0.4 mg/dL (0.2-1.3); TOTAL PROTEIN 6.9 g/dL (5.8-8.3)
[2016-08-23] MEDS: Metoprolol Succinate 50 mg XL Tab PO SCH (08:05)
[2016-08-23] MEDS: BECLOMETHASONE DIPROPIONATE IH SCH ×2 (10:16→18:09)
[2016-08-23] MEDS: TOFACITINIB 5 MG PO SCH ×2 (10:16→21:59)
[2016-08-23] MEDS: LEVALBUTEROL TARTRATE IH SCH ×3 (10:16→18:09)
--- NOTE | 2016-08-23 12:17 | PN ---
DATE: 08/23/2016 Seen and examined at the bedside this morning. Tolerating oral intake. She had a bowel movement yes terday. No diarrhea. It was formed, did not notice any blood. No complaints of abdominal pain, but she does report having some right upper back pain. She thinks she may have strained a muscle when s he was doing a puzzle in the rec room. Otherwise, no acute overnight events or new complaints. VITAL SIGNS: Temperature is 98, blood pressure is 133/75, pulse 88, respirations 18, 99 on room air. LABORATORY DATA: Liver enzymes: Total bilirubin is 0.4, direct is 0.4, AST 43, ALT 90, alkaline braulio sphatase is 69. PHYSICAL EXAMINATION: HEENT: Sclerae are anicteric. NECK: Supple. CARDIAC: S1, S2. LUNGS: Sound clear. ABDOMEN: With bowel sounds, soft. No tenderness appreciated on palpation. No rebound, guarding, or organomegaly. ASSESSMENT: Improving diverticulitis as well as improving liver enzymes, may be medication induced. Ultrasound revealed fatty liver and gallstones with no dilatation or common bile duct stones or dila tation. The patient also has history of rheumatoid arthritis, gastroesophageal reflux disease, chron ic obstructive pulmonary disease, diabetes, and hypertension. PLAN: The patient is on IV antibiotics. She is on Azactam with 9 more doses. Continue Protonix and monitor LFTs which continue to show a downward trend. The patient is also off of her Xeljanz. The patient was seen and case discussed with Dr. Mills. Millicent CHAVEZ cc: [id number] TT: 08/23/2016 12:16:36 Confirmation # [id number] Dictation # [id number] tn
--- NOTE | 2016-08-23 18:13 | CP.PCM.PN ---
Subjective - Date & Time of Evaluation Date of Evaluation: 08/23/16 Time of Evaluation: 18:02 - Subjective Subjective: Infectious Disease Follow Up: August 23, 2016 70 yo female I last saw in September 2013 presents to [facility] [place] ER for left flank pain for the past 7 days. She denies fevers, chills, nausea, vomiting, diarrhea. Currently afebrile and no appreciable leukocytosis. Urinalysis is NOT suggestive of a UTI. Chest X-ray does not display any pneumonia. CT of the Abdomen suggests acute diverticulitis. Difficulty in antibiotic treatment due to the multiple allergies. She feels better today. On day 8 of Aztreonam. In TRCU now. Noted elevation in LFTs/transaminases that has been slowly downtrending now. Objective - Vital Signs/Intake and Output Vital Signs (last 24 hours): Temp Pulse Resp BP Pulse Ox 98 F 79 14 152/88 H 98 08/23/16 16:00 08/23/16 16:00 08/23/16 16:00 08/23/16 16:00 08/23/16 16:00 - Medications Medications: Current Medications Albuterol/Ipratropium (Duoneb 3 Mg/0.5 Mg (3 Ml) Ud) 3 ml IH [id number] PRN; Protocol PRN Reason: Shortness of Breath Home Med (Home Med) 1 unit PO Q12 [facility] Last Admin: 08/23/16 10:16 Dose: Not Given Aztreonam (Azactam 1 Gm) 100 mls @ 100 mls/hr IVPB Q8 [facility] PRN Reason: Protocol Stop: 08/25/16 14:59 Last Admin: 08/23/16 14:50 Dose: 100 mls/hr Insulin Human Lispro (Humalog Low) 0 units SC ACHS [facility] PRN Reason: Protocol Last Admin: 08/23/16 12:30 Dose: Not Given Levothyroxine Sodium (Synthroid) 112 mcg PO 0600 [facility] PRN Reason: Protocol Last Admin: 08/23/16 06:00 Dose: 112 mcg Metoprolol Succinate (Toprol Xl) 50 mg PO 0800 [facility] PRN Reason: Protocol Last Admin: 08/23/16 08:05 Dose: 50 mg Non-Formulary Medication (Levalbuterol Tartrate [Xopenex Hfa]) 2 puff IH QID [facility] Last Admin: 08/23/16 10:16 Dose: Not Given Non-Formulary Medication (Beclomethasone Dipropionate [Qvar 80 Mcg]) 2 puff IH BID [facility] Last Admin: 08/23/16 10:16 Dose: Not Given Ondansetron HCl (Zofran Inj) 4 mg IVP Q6H PRN; Protocol PRN Reason: Nausea/Vomiting Pantoprazole Sodium (Protonix Ec Tab) 40 mg PO 0630 [facility] PRN Reason: Protocol Last Admin: 08/23/16 06:00 Dose: 40 mg - Labs Labs: 08/21/16 07:30 08/21/16 07:30 - Constitutional Appears: Non-toxic, No Acute Distress, Chronically Ill - Head Exam Head Exam: ATRAUMATIC, NORMOCEPHALIC - Eye Exam Eye Exam: EOMI, PERRL Pupil Exam: NORMAL ACCOMODATION, PERRL - ENT Exam ENT Exam: Mucous Membranes Moist, Normal External Ear Exam, TM's Normal Bilaterally - Neck Exam Neck Exam: Full ROM, Normal Inspection - Respiratory Exam Respiratory Exam: Clear to Ausculation Bilateral, NORMAL BREATHING PATTERN. absent: Rales, Rhonchi, Wheezes - Cardiovascular Exam Cardiovascular Exam: REGULAR RHYTHM, RRR, +S1, +S2 - GI/Abdominal Exam GI & Abdominal Exam: Soft, Normal Bowel Sounds. absent: Distended, Tenderness - Extremities Exam Extremities Exam: Full ROM, Normal Inspection - Neurological Exam Neurological Exam: Alert, Awake, CN II-XII Intact, Oriented x3 - Psychiatric Exam Psychiatric exam: Normal Affect, Normal Mood - Skin Skin Exam: Intact, Normal Color Assessment and Plan - Assessment and Plan (Free Text) Assessment: 70 yo female with previous hospitalizations in the distant past presenting with diverticulitis. Patient with multiple antibiotic allergies. Would suggest use of aztreonam for this patient as meropenem is a carbapenem which is closely related to PCN drugs. There is a 15-20 % chance of cross reactivity. Will change to aztreonam and Flagyl for IV antibiotic treatment. Supportive care. Acute diverticulitis. Day 8 of treatment. Currently in TRCU now. With the elevation of the LFTs, will continue to hold Flagyl at this time. Transaminases elevated but are downtrending today towards normal values. The patient can be considered for a reduced dosing of Flagyl at 250mg q8hrs that can be finished orally. Thank you for allowing me to participate in the care of the patient, we will follow with you.
[2016-08-24] MEDS: Aztreonam 1 Gm in NS 100mL 100 ML IVPB SCH ×3 (05:38→21:40)
[2016-08-24] MEDS: Pantoprazole 40 mg EC Tab PO SCH (05:40)
[2016-08-24] MEDS: Levothyroxine 112 MCG TAB PO SCH (05:41)
[2016-08-24] MEDS: Insulin Lispro (humaLOG) LOW Coverage SC SCH ×4 (06:40→23:06)
[2016-08-24 07:03] LABS: ADD MANUAL DIFF? NO
[2016-08-24 07:19] LABS: BASO # 0.03 K/mm3 (0.0-2.0); BASO % 0.4 % (0.0-3.0); EOS # 0.2 (0.0-0.7); EOS % 3.1 % (1.5-5.0); GRAN # 5.33 (1.4-6.5); GRAN % 69.5 % (50.0-68.0); HEMATOCRIT 37.4 % (36.0-48.0); LYMPH # 1.4 (1.2-3.4); LYMPH % 18.1 % (22.0-35.0); MEAN CORPUSCULAR HEMOGLOBIN 29.8 pg (25.0-35.0); MEAN CORPUSCULAR HGB CONC 33.4 g/dl (31.0-37.0); MEAN PLATELET VOLUME 9.2 fl (7.0-11.0); MONO # 0.7 (0.1-0.6); MONO % 8.9 % (1.0-6.0); PLATELET COUNT 317 10^3/uL (120.0-450.0); RED CELL DISTRIBUTION WIDTH 13.8 % (11.5-14.5); WHITE BLOOD COUNT 7.7 10^3/ul (4.5-11.0)
[2016-08-24 07:36] LABS: ALB/GLOB RATIO 1.1 (1.1-1.8); BILIRUBIN,DIRECT 0.4 mg/dL (0.0-0.4); BILIRUBIN,TOTAL 0.5 mg/dL (0.2-1.3); TOTAL PROTEIN 7.2 g/dL (5.8-8.3)
[2016-08-24] MEDS: Metoprolol Succinate 50 mg XL Tab PO SCH (08:33)
[2016-08-24] MEDS: BECLOMETHASONE DIPROPIONATE IH SCH ×2 (09:54→17:25)
[2016-08-24] MEDS: TOFACITINIB 5 MG PO SCH ×2 (09:54→21:42)
[2016-08-24] MEDS ORDERED: POLYETHYLENE GLYCOL 3350 17 GM/Dose PACKET PO ONE (10:50)
--- NOTE | 2016-08-24 11:23 | CP.PCM.PN ---
<Bhavin Denny - Last Filed: 08/24/16 11:20> Subjective - Date & Time of Evaluation Date of Evaluation: 08/24/16 Time of Evaluation: 09:45 - Subjective Subjective: Dr. Denny PGY1 Hospitalist Note Patient seen and evaluated in TCU. She reports having a small, hard bowel movement this morning and is requesting a stool softener. She denies any blood or pain on defecations. She denies any nausea, vomiting, fever, chills, abdominal pain, gas, or distention. She is anticipating leaving. Per nursing, no adverse events over night. Objective - Vital Signs/Intake and Output Vital Signs (last 24 hours): Temp Pulse Resp BP Pulse Ox 98.1 F 92 H 16 108/71 98 08/24/16 10:00 08/24/16 10:00 08/24/16 10:00 08/24/16 10:00 08/23/16 16:00 - Medications Medications: Current Medications Albuterol/Ipratropium (Duoneb 3 Mg/0.5 Mg (3 Ml) Ud) 3 ml IH [id number] PRN; Protocol PRN Reason: Shortness of Breath Docusate Sodium (Colace) 100 mg PO BID [facility] Last Admin: 08/24/16 10:58 Dose: Not Given Home Med (Home Med) 1 unit PO Q12 [facility] Last Admin: 08/24/16 09:54 Dose: Not Given Aztreonam (Azactam 1 Gm) 100 mls @ 100 mls/hr IVPB Q8 [facility] PRN Reason: Protocol Stop: 08/25/16 14:59 Last Admin: 08/24/16 05:38 Dose: 100 mls/hr Insulin Human Lispro (Humalog Low) 0 units SC ACHS [facility] PRN Reason: Protocol Last Admin: 08/24/16 06:40 Dose: Not Given Levothyroxine Sodium (Synthroid) 112 mcg PO 0600 [facility] PRN Reason: Protocol Last Admin: 08/24/16 05:41 Dose: 112 mcg Metoprolol Succinate (Toprol Xl) 50 mg PO 0800 [facility] PRN Reason: Protocol Last Admin: 08/24/16 08:33 Dose: Not Given Metronidazole (Flagyl) 250 mg PO Q8H [facility] PRN Reason: Protocol Stop: 05/02/17 10:16 Last Admin: 08/24/16 10:58 Dose: 250 mg Non-Formulary Medication (Levalbuterol Tartrate [Xopenex Hfa]) 2 puff IH QID [facility] Last Admin: 08/23/16 18:09 Dose: Not Given Non-Formulary Medication (Beclomethasone Dipropionate [Qvar 80 Mcg]) 2 puff IH BID [facility] Last Admin: 08/24/16 09:54 Dose: Not Given Ondansetron HCl (Zofran Inj) 4 mg IVP Q6H PRN; Protocol PRN Reason: Nausea/Vomiting Pantoprazole Sodium (Protonix Ec Tab) 40 mg PO 0630 [facility] PRN Reason: Protocol Last Admin: 08/24/16 05:40 Dose: 40 mg - Labs Labs: 08/24/16 06:00 08/21/16 07:30 - Constitutional Appears: Non-toxic, No Acute Distress - Head Exam Head Exam: ATRAUMATIC, NORMAL INSPECTION, NORMOCEPHALIC - Eye Exam Eye Exam: EOMI, Normal appearance, PERRL Pupil Exam: NORMAL ACCOMODATION, PERRL - ENT Exam ENT Exam: Mucous Membranes Moist. absent: Normal Oropharynx - Neck Exam Neck Exam: Normal Inspection. absent: Tenderness - Respiratory Exam Respiratory Exam: Clear to Ausculation Bilateral, NORMAL BREATHING PATTERN. absent: Rales, Rhonchi, Wheezes - Cardiovascular Exam Cardiovascular Exam: REGULAR RHYTHM, +S1, +S2. absent: Gallop, Rubs, Murmur - GI/Abdominal Exam GI & Abdominal Exam: Soft, Normal Bowel Sounds. absent: Distended, Firm, Tenderness - Extremities Exam Extremities Exam: Normal Capillary Refill, Normal Inspection. absent: Pedal Edema, Tenderness - Back Exam Back Exam: NORMAL INSPECTION. absent: rash noted, tenderness - Neurological Exam Neurological Exam: Alert, Awake, CN II-XII Intact, Oriented x3 - Psychiatric Exam Psychiatric exam: Normal Affect, Normal Mood - Skin Skin Exam: Dry, Intact, Normal Color, Warm Assessment and Plan - Assessment and Plan (Free Text) Assessment: 70 yo F w/ PMHx of HTN, RA, DM, COPD and diverticulitis presents with abdominal pain and found to have diverticulitis on abdominal CT. Seen by ID and GI. In TCU for IV antibiotics due to multiple abx allergies. Elevated transaminases improving. Complaint of mild constipation. Plan: Diverticulitis * CT abd/pel: acute diverticulitis of the sigmoid colon. Inflammatory changes in adjacent fat planes. * CXR: no active disease * ID consulted: * Continue aztreonam and start PO flagyl as per ID and GI * GI consulted: continue diet and monitor pain * Zofran to control nausea * Regular diet * pain control with Tylenol * remains afebrile without leukocytosis * will need to continue IV abx due to multiple abx allergies * start Colace PO for nausea Hx of COPD * continue home Qvar, xopenex * duoneb prn HTN * Currently wnl * continue metoprolol * EKG normal sinus rhythm DM * Hgb a1c 6.6 * insulin sliding scale regular * regular accuchecks Elevated LFT's * improved * patient no longer taking Xeljanz * will resume PO flagyl and monitor for changes PPX * scd's * protonix Assessment and plan discussed with attending physician. <Radu NEWELL,Viry - Last Filed: 08/24/16 11:59> Objective - Vital Signs/Intake and Output Vital Signs (last 24 hours): Temp Pulse Resp BP Pulse Ox 98.1 F 92 H 16 108/71 98 08/24/16 10:00 08/24/16 10:00 08/24/16 10:00 08/24/16 10:00 08/23/16 16:00 - Medications Medications: Current Medications Albuterol/Ipratropium (Duoneb 3 Mg/0.5 Mg (3 Ml) Ud) 3 ml IH [id number] PRN; Protocol PRN Reason: Shortness of Breath Docusate Sodium (Colace) 100 mg PO BID [facility] Last Admin: 08/24/16 10:58 Dose: Not Given Home Med (Home Med) 1 unit PO Q12 [facility] Last Admin: 08/24/16 09:54 Dose: Not Given Aztreonam (Azactam 1 Gm) 100 mls @ 100 mls/hr IVPB Q8 [facility] PRN Reason: Protocol Stop: 08/25/16 14:59 Last Admin: 08/24/16 05:38 Dose: 100 mls/hr Insulin Human Lispro (Humalog Low) 0 units SC ACHS [facility] PRN Reason: Protocol Last Admin: 08/24/16 06:40 Dose: Not Given Levothyroxine Sodium (Synthroid) 112 mcg PO 0600 [facility] PRN Reason: Protocol Last Admin: 08/24/16 05:41 Dose: 112 mcg Metoprolol Succinate (Toprol Xl) 50 mg PO 0800 [facility] PRN Reason: Protocol Last Admin: 08/24/16 08:33 Dose: Not Given Metronidazole (Flagyl) 250 mg PO Q8H [facility] PRN Reason: Protocol Stop: 08/29/16 10:16 Last Admin: 08/24/16 10:58 Dose: 250 mg Non-Formulary Medication (Levalbuterol Tartrate [Xopenex Hfa]) 2 puff IH QID [facility] Last Admin: 08/23/16 18:09 Dose: Not Given Non-Formulary Medication (Beclomethasone Dipropionate [Qvar 80 Mcg]) 2 puff IH BID [facility] Last Admin: 08/24/16 09:54 Dose: Not Given Ondansetron HCl (Zofran Inj) 4 mg IVP Q6H PRN; Protocol PRN Reason: Nausea/Vomiting Pantoprazole Sodium (Protonix Ec Tab) 40 mg PO 0630 [facility] PRN Reason: Protocol Last Admin: 08/24/16 05:40 Dose: 40 mg - Labs Labs: 08/24/16 06:00 08/21/16 07:30 Attending/Attestation - Attestation I have personally seen and examined this patient.: Yes I have fully participated in the care of the patient.: Yes I have reviewed all pertinent clinical information, including history, physical exam and plan: Yes Notes (Text): Patient was seen and examined with medical review specialist .Agreed with resident assessment and plan. 70 F with sigmoid diverticulitis , improved , tolerating diet, will finish IV Azectum tomorrow and will be discharged after she will complete IV antibiotics. Management plan was discussed in detail with patient Education was provided.
[2016-08-24] MEDS: LEVALBUTEROL TARTRATE IH SCH ×2 (12:46→17:27)
--- NOTE | 2016-08-24 19:10 | PN ---
DATE: 08/24/2016 Seen and examined at the bedside earlier this morning. The patient still reports no bowel movement y . Likely, her last bowel movement was on Sunday. No abdominal pain; that is better. She s till intermittently has pain in the right upper back. Otherwise, no other acute overnight events or new complaints. OBJECTIVE: VITAL SIGNS: Temperature 98.1, blood pressure is 108/71, pulse 92, respirations 16. LABORATORY DATA: WBC 7.7, H and H 12.5 and 37.4, platelets 317. LFTs: Total bilirubin and direct b ilirubin are within normal limits. AST is 33, ALT 80 and alkaline phosphatase is 73. Her AST and AL T continue to trend down. Actually, the AST is normalized. PHYSICAL EXAMINATION: HEENT: Sclerae anicteric. NECK: Supple. CARDIAC: S1, S2. LUNGS: Sounds are clear. ABDOMEN: With bowel sounds, soft. No tenderness on palpation, rebound or organomegaly. ASSESSMENT: Resolving diverticulitis, obesity, improving liver enzymes, may be medication induced. The patient did have abdominal ultrasound revealing a fatty liver and gallstones. There was no commo n bile duct dilatation or stones noted. The patient has history of rheumatoid arthritis and intermit tently has right upper back pain, possibly could be muscle strain. The patient reports that she was in the recreational room doing a puzzle, hunched over a few days back. The patient is not taking her Xeljanz. History of chronic obstructive pulmonary disease, gastroesophageal reflux disease, diabete s mellitus and hypertension. PLAN: She is still on Azactam. She has 3 more doses left. She is going to be restarted on Flagyl 2 50 mg p.o. for a short course. The patient will be given a dose of MiraLAX. We will discontinue the Colace. This was discussed with the patient and nursing staff. The patient was seen and case discu ssed with Dr. Mills. Millicent Hutchins KATHY cc: [id number] TT: 08/24/2016 19:08:48 Confirmation # [id number] Dictation # [id number] genevieve
--- NOTE | 2016-08-24 19:32 | CP.PCM.PN ---
Subjective - Date & Time of Evaluation Date of Evaluation: 08/24/16 Time of Evaluation: 17:15 - Subjective Subjective: Infectious Disease Follow Up: August 24, 2016 70 yo female I last saw in September 2013 [place] [facility] left flank pain for the past 7 days. She denies fevers, chills, nausea, vomiting, diarrhea. Currently afebrile and no appreciable leukocytosis. Urinalysis is NOT suggestive of a UTI. Chest X-ray does not display any pneumonia. CT of the Abdomen suggests acute diverticulitis. Difficulty in antibiotic treatment due to the multiple allergies. She feels better today. On day 9 of Aztreonam. In TRCU now. Noted elevation in LFTs/transaminases that has been slowly downtrending now. Objective - Vital Signs/Intake and Output Vital Signs (last 24 hours): Temp Pulse Resp BP Pulse Ox 98.4 F 81 14 134/77 98 08/24/16 16:00 08/24/16 16:00 08/24/16 16:00 08/24/16 16:00 08/23/16 16:00 - Medications Medications: Current Medications Albuterol/Ipratropium (Duoneb 3 Mg/0.5 Mg (3 Ml) Ud) 3 ml IH [id number] PRN; Protocol PRN Reason: Shortness of Breath Docusate Sodium (Colace) 100 mg PO BID [facility] Last Admin: 08/24/16 17:25 Dose: Not Given Home Med (Home Med) 1 unit PO Q12 [facility] Last Admin: 08/24/16 09:54 Dose: Not Given Aztreonam (Azactam 1 Gm) 100 mls @ 100 mls/hr IVPB Q8 [facility] PRN Reason: Protocol Stop: 08/25/16 14:59 Last Admin: 08/24/16 14:39 Dose: 100 mls/hr Insulin Human Lispro (Humalog Low) 0 units SC ACHS [facility] PRN Reason: Protocol Last Admin: 08/24/16 17:26 Dose: Not Given Levothyroxine Sodium (Synthroid) 112 mcg PO 0600 [facility] PRN Reason: Protocol Last Admin: 08/24/16 05:41 Dose: 112 mcg Metoprolol Succinate (Toprol Xl) 50 mg PO 0800 [facility] PRN Reason: Protocol Last Admin: 08/24/16 08:33 Dose: Not Given Metronidazole (Flagyl) 250 mg PO Q8H [facility] PRN Reason: Protocol Stop: 08/29/16 10:16 Last Admin: 08/24/16 17:25 Dose: 250 mg Non-Formulary Medication (Levalbuterol Tartrate [Xopenex Hfa]) 2 puff IH QID [facility] Last Admin: 08/24/16 17:27 Dose: Not Given Non-Formulary Medication (Beclomethasone Dipropionate [Qvar 80 Mcg]) 2 puff IH BID [facility] Last Admin: 08/24/16 17:25 Dose: Not Given Ondansetron HCl (Zofran Inj) 4 mg IVP Q6H PRN; Protocol PRN Reason: Nausea/Vomiting Pantoprazole Sodium (Protonix Ec Tab) 40 mg PO 0630 [facility] PRN Reason: Protocol Last Admin: 08/24/16 05:40 Dose: 40 mg - Labs Labs: 08/24/16 06:00 08/21/16 07:30 - Constitutional Appears: Non-toxic, No Acute Distress, Chronically Ill - Head Exam Head Exam: ATRAUMATIC, NORMOCEPHALIC - Eye Exam Eye Exam: EOMI, PERRL Pupil Exam: NORMAL ACCOMODATION, PERRL - ENT Exam ENT Exam: Mucous Membranes Moist, Normal External Ear Exam, TM's Normal Bilaterally - Neck Exam Neck Exam: Full ROM, Normal Inspection - Respiratory Exam Respiratory Exam: Clear to Ausculation Bilateral, NORMAL BREATHING PATTERN. absent: Rales, Rhonchi, Wheezes - Cardiovascular Exam Cardiovascular Exam: REGULAR RHYTHM, RRR, +S1, +S2 - GI/Abdominal Exam GI & Abdominal Exam: Soft, Normal Bowel Sounds. absent: Distended, Tenderness - Extremities Exam Extremities Exam: Full ROM, Normal Inspection - Neurological Exam Neurological Exam: Alert, Awake, CN II-XII Intact, Oriented x3 - Psychiatric Exam Psychiatric exam: Normal Affect, Normal Mood - Skin Skin Exam: Intact, Normal Color Assessment and Plan - Assessment and Plan (Free Text) Assessment: 70 yo female with previous hospitalizations in the distant past presenting with diverticulitis. Patient with multiple antibiotic allergies. Would suggest use of aztreonam for this patient as meropenem is a carbapenem which is closely related to PCN drugs. There is a 15-20 % chance of cross reactivity. Will change to aztreonam and Flagyl for IV antibiotic treatment. Supportive care. Acute diverticulitis. Day 8 of treatment. Currently in TRCU now. With the elevation of the LFTs, will continue to hold Flagyl at this time. Transaminases elevated but are downtrending today towards normal values. The patient can be considered for a reduced dosing of Flagyl at 250mg q8hrs that can be finished orally. Thank you for allowing me to participate in the care of the patient, we will follow with you.
[2016-08-25] MEDS: Aztreonam 1 Gm in NS 100mL 100 ML IVPB SCH ×2 (05:46→13:59)
[2016-08-25] MEDS: Pantoprazole 40 mg EC Tab PO SCH (05:48)
[2016-08-25] MEDS: Levothyroxine 112 MCG TAB PO SCH (05:48)
[2016-08-25 06:35] VITALS: RESP 18; TEMP 98; O2SAT 96
[2016-08-25] MEDS: Insulin Lispro (humaLOG) LOW Coverage SC SCH ×2 (06:41→12:00)
[2016-08-25 07:09] LABS: ADD MANUAL DIFF? NO
[2016-08-25 07:21] LABS: BASO # 0.02 K/mm3 (0.0-2.0); BASO % 0.3 % (0.0-3.0); EOS # 0.2 (0.0-0.7); EOS % 3.3 % (1.5-5.0); GRAN # 4.44 (1.4-6.5); GRAN % 65.8 % (50.0-68.0); HEMATOCRIT 37.6 % (36.0-48.0); LYMPH # 1.5 (1.2-3.4); LYMPH % 21.9 % (22.0-35.0); MEAN CELL VOLUME 88.5 fL (80.0-105.0); MEAN CORPUSCULAR HEMOGLOBIN 29.6 pg (25.0-35.0); MEAN CORPUSCULAR HGB CONC 33.5 g/dl (31.0-37.0); MEAN PLATELET VOLUME 9.4 fl (7.0-11.0); MONO # 0.6 (0.1-0.6); MONO % 8.7 % (1.0-6.0); PLATELET COUNT 324 10^3/uL (120.0-450.0); WHITE BLOOD COUNT 6.8 10^3/ul (4.5-11.0)
[2016-08-25 07:26] LABS: ALB/GLOB RATIO 1.2 (1.1-1.8); BILIRUBIN,DIRECT 0.3 mg/dL (0.0-0.4); BILIRUBIN,TOTAL 0.3 mg/dL (0.2-1.3)
[2016-08-25] MEDS: Metoprolol Succinate 50 mg XL Tab PO SCH (08:36)
[2016-08-25 08:38] VITALS: BP 124/77; PULSE 107
[2016-08-25] MEDS: BECLOMETHASONE DIPROPIONATE IH SCH (10:03)
[2016-08-25] MEDS: TOFACITINIB 5 MG PO SCH (10:11)
[2016-08-25] MEDS: LEVALBUTEROL TARTRATE IH SCH ×2 (10:11→14:00)
--- NOTE | 2016-08-25 15:35 | PN ---
DATE: 08/25/2016 Seen and examined at the bedside earlier today. The patient with no new complaints. She took the Mi raLax yesterday and had a formed stool yesterday as well as 3 times this morning, but it is soft stoo l; does not report diarrhea. No reports of any bleeding or abdominal pain. Awaiting to be discharge d today. VITAL SIGNS: Temperature 98, blood pressure is 124/77, pulse is 107, respirations 18, 96 on room air . LABORATORY DATA: WBC 6.8, H and H is 12.6 and 37.6, platelets of 324. LFTs: Total bilirubin 0.3. Her AST is 32, ALT 68, this is improving, yesterday was 80, alkaline phosphatase 75 PHYSICAL EXAMINATION: HEENT: Sclerae are anicteric. NECK: Supple. CARDIAC: S1, S2. LUNGS: Sounds are clear. ABDOMEN: With bowel sounds, softly obese, nontender on palpation. No rebound, guarding, or organome sheron. ASSESSMENT: Status post diverticulitis. The patient was found to have transaminitis, likely medicat ion induced. Ultrasound revealed fatty liver and gallstones. The common bile duct was normal and sh owing no stones. The patient does have a history of rheumatoid arthritis, was on Xeljanz. She is of f the Xeljanz and IV Flagyl. History of chronic obstructive pulmonary disease, gastroesophageal refl ux disease, diabetes mellitus and hypertension. PLAN: She is going to complete her Azactam today and will be discharged home. She was restarted on Flagyl 250 mg p.o. yesterday which she will continue for a total of 5 days' therapy. The patient is to be discharged home with this to complete. Continue GI prophylaxis. Continue Protonix. Discussed with the patient that, upon discharge, she should follow up in our outpatient office. She already h as an appointment for 09/28. The patient was told to initially start with a low residual diet and to c ontact our offices for any further questions or problems. The patient confirmed her appointment. Niurka michel has an appointment for 09/28/2016 at 11:00. The patient was seen and case discussed with Dr. Kaylen holt Millicent CHAVEZ cc: [id number] TT: 08/25/2016 15:34:52 Confirmation # [id number] Dictation # [id number] tn
--- NOTE | 2016-08-25 15:42 | CP.PCM.DIS ---
<Bhavin Denny - Last Filed: 08/25/16 16:48> Provider - Provider Date of Admission: 08/19/16 12:40 Attending physician: Dari Scott MD Primary care physician: Trev Schultz MD Consults: Dr. Brandon García Time Spent in preparation of Discharge (in minutes): 35 Hospital Course - Lab Results Lab Results: Most Recent Lab Values WBC 6.8 10^3/ul (4.5-11.0) 08/25/16 06:00 RBC 4.25 10^6/uL (3.5-6.1) 08/25/16 06:00 Hgb 12.6 gm/dL (12.0-16.0) 08/25/16 06:00 Hct 37.6 % (36.0-48.0) 08/25/16 06:00 MCV 88.5 fL (80.0-105.0) 08/25/16 06:00 MCH 29.6 pg (25.0-35.0) 08/25/16 06:00 MCHC 33.5 g/dl (31.0-37.0) 08/25/16 06:00 RDW 14.0 % (11.5-14.5) 08/25/16 06:00 Plt Count 324 10^3/uL (120.0-450.0) 08/25/16 06:00 MPV 9.4 fl (7.0-11.0) 08/25/16 06:00 Gran % 65.8 % (50.0-68.0) 08/25/16 06:00 Lymph % (Auto) 21.9 % (22.0-35.0) L 08/25/16 06:00 [place] % (Auto) 8.7 % (1.0-6.0) H 08/25/16 06:00 Eos % (Auto) 3.3 % (1.5-5.0) 08/25/16 06:00 Baso % (Auto) 0.3 % (0.0-3.0) 08/25/16 06:00 Gran # 4.44 (1.4-6.5) 08/25/16 06:00 Lymph # 1.5 (1.2-3.4) 08/25/16 06:00 [place] # 0.6 (0.1-0.6) 08/25/16 06:00 Eos # 0.2 (0.0-0.7) 08/25/16 06:00 Baso # 0.02 K/mm3 (0.0-2.0) 08/25/16 06:00 Sodium 141 mmol/L (132-148) 08/21/16 07:30 Potassium 4.2 mmol/L (3.6-5.0) 08/21/16 07:30 Chloride 104 mmol/L (95-110) 08/21/16 07:30 Carbon Dioxide 28 mmol/L (21-33) 08/21/16 07:30 Anion Gap 13 (10-20) 08/21/16 07:30 BUN 15 mg/dL (7-21) 08/21/16 07:30 Creatinine 0.7 mg/dL (0.5-1.4) 08/21/16 07:30 Est GFR ( Amer) > 60 08/21/16 07:30 Est GFR (Non-Af Amer) > 60 08/21/16 07:30 POC Glucose (mg/dL) 110 mg/dL (65-110) 08/24/16 05:04 Random Glucose 102 mg/dL (70-110) 08/21/16 07:30 Calcium 9.3 mg/dL (8.4-10.5) 08/21/16 07:30 Total Bilirubin 0.3 mg/dL (0.2-1.3) 08/25/16 06:00 Direct Bilirubin 0.3 mg/dL (0.0-0.4) 08/25/16 06:00 AST 32 U/L (15-39) 08/25/16 06:00 ALT 68 U/L (7-56) H 08/25/16 06:00 Alkaline Phosphatase 75 U/L (38-133) 08/25/16 06:00 Total Protein 7.0 g/dL (5.8-8.3) 08/25/16 06:00 Albumin 3.8 g/dL (3.0-4.8) 08/25/16 06:00 Globulin 3.2 gm/dL 08/25/16 06:00 Albumin/Globulin Ratio 1.2 (1.1-1.8) 08/25/16 06:00 Hepatitis A IgM Ab Negative (NEGATIVE) 08/21/16 07:30 Hep Bs Antigen Negative (NEGATIVE) 08/21/16 07:30 Hep B Core IgM Ab Negative (NEGATIVE) 08/21/16 07:30 Hepatitis C Antibody Negative (NEGATIVE) 08/21/16 07:30 - Hospital Course Hospital Course: HPI: 70 yo F w/ PMHx of HTN, RA, DM, COPD and diverticulitis presents to the hospital with abdominal pain that started 10 days ago. Patient reports it began in the upper gastric region and moved to the lower abdomen. A CT abd/pel showed acute diverticulitis of the sigmoid colon, inflammatory changes in adjacent fat planes. She was placed on IV fluids, liquid diet, pain control, and ID and GI were consulted. She has been treated with IV antibiotics in the hospital for four days. Her symptoms improved on IV antibiotics. She has been on a liquid diet which was advanced to a regular diet. She denies any chills, chest pain, dysuria, constipation, diarrhea, vomiting. Hospital Course: Patient is a 70 y/o F who was admitted to the TCU for IV antibiotics to treat acute diverticulitis. She has multiple antibiotic allergies and was treated with Flagyl and Azactam. She developed elevated transaminases and IV Flagyl was discontinued. Her liver enzymes were returning to baseline and she was restarted on oral flagyl. Her liver enzymes remained within normal limits. She had some mild constipation which was alleviated with colace and miralax. She completed her course of IV antibiotics and was determined stable for discharge home. She was discharged with prescription for oral flagyl. She was advised to: follow up with your primary care physician and shearing shed hand within a week of discharge; resume home medications and take medications as prescribed; have primary care physician recheck your liver enzymes as an outpatient; follow up with your senior gis analyst upon discharge; and iff your condition worsens or new symptoms arise, please return to the emergency room. She verbalized understanding and was discharged home. This is a brief summary of the patient's stay at this facility. For more detail see patient's full chart. - Date & Time of H&P Date of H&P: 08/20/16 Time of H&P: 07:51 Discharge Exam - Head Exam Head Exam: ATRAUMATIC, NORMOCEPHALIC - Eye Exam Eye Exam: EOMI, Normal appearance, PERRL Pupil Exam: NORMAL ACCOMODATION, PERRL - ENT Exam ENT Exam: Mucous Membranes Moist, Normal Oropharynx - Respiratory Exam Respiratory Exam: NORMAL BREATHING PATTERN. absent: Rales, Rhonchi, Wheezes - Cardiovascular Exam Cardiovascular Exam: REGULAR RHYTHM, +S1, +S2. absent: Gallop, Rubs, Systolic Murmur - GI/Abdominal Exam GI & Abdominal Exam: Normal Bowel Sounds, Soft. absent: Distended, Tenderness - Extremities Exam Extremities exam: normal capillary refill, normal inspection, pedal pulses present - Back Exam Back exam: NORMAL INSPECTION. absent: rash noted, tenderness - Neurological Exam Neurological exam: Alert, CN II-XII Intact, Normal Gait, Oriented x3 - Psychiatric Exam Psychiatric exam: Normal Affect, Normal Mood - Skin Skin Exam: Dry, Intact, Normal Color, Warm Discharge Plan - Discharge Medications Prescriptions: metroNIDAZOLE [Flagyl] 250 mg PO Q8H 3 Days - Follow Up Plan Condition: GOOD Disposition: HOME/ ROUTINE Instructions: Diverticulitis (DC), How to Check Your Blood Sugar (DC), COPD ( Chronic Obstructive Pulmonary Disease) (DC), Chronic Hypertension (DC), Abdominal Pain (ED) Additional Instructions: You are medically stable for discharge. Please follow up with your primary care physician and shearing shed hand within a week of discharge. You are discharged with prescription for flagyl. Please resume home medications and take medications as prescribed. Please have primary care physician recheck your liver enzymes as an outpaitient. Follow up with your senior gis analyst upon discharge. If your condition worsens or new symptoms arise, please return to the emergency room. Referrals: Trve Schultz MD [Primary Care Provider] - Brandon Mills MD [Medical Doctor] - <Radu NEWELL,[facility] - Last Filed: 08/25/16 17:22> Provider - Provider Date of Admission: 08/19/16 12:40 Attending physician: Dari Scott MD Primary care physician: Trev Schultz MD Hospital Course - Lab Results Lab Results: Most Recent Lab Values WBC 6.8 10^3/ul (4.5-11.0) 08/25/16 06:00 RBC 4.25 10^6/uL (3.5-6.1) 08/25/16 06:00 Hgb 12.6 gm/dL (12.0-16.0) 08/25/16 06:00 Hct 37.6 % (36.0-48.0) 08/25/16 06:00 MCV 88.5 fL (80.0-105.0) 08/25/16 06:00 MCH 29.6 pg (25.0-35.0) 08/25/16 06:00 MCHC 33.5 g/dl (31.0-37.0) 08/25/16 06:00 RDW 14.0 % (11.5-14.5) 08/25/16 06:00 Plt Count 324 10^3/uL (120.0-450.0) 08/25/16 06:00 MPV 9.4 fl (7.0-11.0) 08/25/16 06:00 Gran % 65.8 % (50.0-68.0) 08/25/16 06:00 Lymph % (Auto) 21.9 % (22.0-35.0) L 08/25/16 06:00 [place] % (Auto) 8.7 % (1.0-6.0) H 08/25/16 06:00 Eos % (Auto) 3.3 % (1.5-5.0) 08/25/16 06:00 Baso % (Auto) 0.3 % (0.0-3.0) 08/25/16 06:00 Gran # 4.44 (1.4-6.5) 08/25/16 06:00 Lymph # 1.5 (1.2-3.4) 08/25/16 06:00 [place] # 0.6 (0.1-0.6) 08/25/16 06:00 Eos # 0.2 (0.0-0.7) 08/25/16 06:00 Baso # 0.02 K/mm3 (0.0-2.0) 08/25/16 06:00 Sodium 141 mmol/L (132-148) 08/21/16 07:30 Potassium 4.2 mmol/L (3.6-5.0) 08/21/16 07:30 Chloride 104 mmol/L (95-110) 08/21/16 07:30 Carbon Dioxide 28 mmol/L (21-33) 08/21/16 07:30 Anion Gap 13 (10-20) 08/21/16 07:30 BUN 15 mg/dL (7-21) 08/21/16 07:30 Creatinine 0.7 mg/dL (0.5-1.4) 08/21/16 07:30 Est GFR ( Amer) > 60 08/21/16 07:30 Est GFR (Non-Af Amer) > 60 08/21/16 07:30 POC Glucose (mg/dL) 110 mg/dL (65-110) 08/24/16 05:04 Random Glucose 102 mg/dL (70-110) 08/21/16 07:30 Calcium 9.3 mg/dL (8.4-10.5) 08/21/16 07:30 Total Bilirubin 0.3 mg/dL (0.2-1.3) 08/25/16 06:00 Direct Bilirubin 0.3 mg/dL (0.0-0.4) 08/25/16 06:00 AST 32 U/L (15-39) 08/25/16 06:00 ALT 68 U/L (7-56) H 08/25/16 06:00 Alkaline Phosphatase 75 U/L (38-133) 08/25/16 06:00 Total Protein 7.0 g/dL (5.8-8.3) 08/25/16 06:00 Albumin 3.8 g/dL (3.0-4.8) 08/25/16 06:00 Globulin 3.2 gm/dL 08/25/16 06:00 Albumin/Globulin Ratio 1.2 (1.1-1.8) 08/25/16 06:00 Hepatitis A IgM Ab Negative (NEGATIVE) 08/21/16 07:30 Hep Bs Antigen Negative (NEGATIVE) 08/21/16 07:30 Hep B Core IgM Ab Negative (NEGATIVE) 08/21/16 07:30 Hepatitis C Antibody Negative (NEGATIVE) 08/21/16 07:30 Attending/Attestation - Attestation I have personally seen and examined this patient.: Yes I have fully participated in the care of the patient.: Yes I have reviewed all pertinent clinical information, including history, physical exam and plan: Yes Notes (Text): Patient was seen and examined with medical technicians .Agreed with resident assessment and plan. 70 yo F w/ PMHx of HTN, RA, DM, COPD was admitted with recurrent sigmoid diverticulitis, She was admitted in TCU as she was allergic to Penicillin and Levofloxacin, treated with IV antibiotics, has completed course of IV Azactem.Patient symptoms has improved.She is afebrile, tolerating diet..She will be discharged home and will follow up with PCP and GI. LFT are back at base line. Management plan was discussed in detail with patient Education was provided. 08/25/16 17:21
--- NOTE | 2016-08-25 17:46 | CP.PCM.PN ---
Subjective - Date & Time of Evaluation Date of Evaluation: 08/25/16 Time of Evaluation: 16:30 - Subjective Subjective: Infectious Disease Follow Up: August 25, 2016 70 yo female I last saw in September [address] [facility] [place] ER for left flank pain for the past 7 days. She denies fevers, chills, nausea, vomiting, diarrhea. Currently afebrile and no appreciable leukocytosis. Urinalysis is NOT suggestive of a UTI. Chest X-ray does not display any pneumonia. CT of the Abdomen suggests acute diverticulitis. Difficulty in antibiotic treatment due to the multiple allergies. She feels better today. On day 10 of Aztreonam. In TRCU now. Noted elevation in LFTs/transaminases that has been slowly downtrending now. Restarted on oral Flagyl 250mg q8hrs that can be completed outside of the hospital. Objective - Vital Signs/Intake and Output Vital Signs (last 24 hours): Temp Pulse Resp BP Pulse Ox 98 F 107 H 18 124/77 96 08/25/16 06:00 08/25/16 08:36 08/25/16 06:00 08/25/16 08:36 08/25/16 06:00 - Labs Labs: 08/25/16 06:00 08/21/16 07:30 - Constitutional Appears: Non-toxic, No Acute Distress, Chronically Ill - Head Exam Head Exam: ATRAUMATIC, NORMOCEPHALIC - Eye Exam Eye Exam: EOMI, PERRL Pupil Exam: NORMAL ACCOMODATION, PERRL - ENT Exam ENT Exam: Mucous Membranes Moist, Normal External Ear Exam, TM's Normal Bilaterally - Neck Exam Neck Exam: Full ROM, Normal Inspection - Respiratory Exam Respiratory Exam: Clear to Ausculation Bilateral, NORMAL BREATHING PATTERN. absent: Rales, Rhonchi, Wheezes - Cardiovascular Exam Cardiovascular Exam: REGULAR RHYTHM, RRR, +S1, +S2 - GI/Abdominal Exam GI & Abdominal Exam: Soft, Normal Bowel Sounds. absent: Distended, Tenderness - Extremities Exam Extremities Exam: Full ROM, Normal Inspection - Neurological Exam Neurological Exam: Alert, Awake, CN II-XII Intact, Oriented x3 - Psychiatric Exam Psychiatric exam: Normal Affect, Normal Mood - Skin Skin Exam: Intact, Normal Color Assessment and Plan - Assessment and Plan (Free Text) Assessment: 70 yo female with previous hospitalizations in the distant past presenting with diverticulitis. Patient with multiple antibiotic allergies. Would suggest use of aztreonam for this patient as meropenem is a carbapenem which is closely related to PCN drugs. There is a 15-20 % chance of cross reactivity. Will change to aztreonam and Flagyl for IV antibiotic treatment. Supportive care. Acute diverticulitis. Day 10 of treatment. Currently in TRCU now. With the elevation of the LFTs, will continue to hold Flagyl at this time. Transaminases elevated but are downtrending today towards normal values. The patient can be considered for a reduced dosing of Flagyl at 250mg q8hrs that can be finished orally. She was restarted on Flagyl. Aztreonam completing today. For discharge home this afternoon. Thank you for allowing me to participate in the care of the patient, we will follow with you.
== END 2016-08-25 16:46 | disposition home or self-care (01) | DRG 392 ==
LOC: TRCU 12:40
PROVIDERS: ADMIT Internal Medicine; ATTEND Internal Medicine
PROC: F07Z9ZZ Gait Training/Functional Ambulation Treatment (ICD-10-PCS; principal; 2016-08-20)
PROC: F08Z4ZZ Home Management Treatment (ICD-10-PCS; 2016-08-21)
DX: K57.32 Diverticulitis of large intestine without perforation or abscess without bleeding (principal); Z79.2 Long term (current) use of antibiotics; J44.9 Chronic obstructive pulmonary disease, unspecified; K76.0 Fatty (change of) liver, not elsewhere classified; I10 Essential (primary) hypertension; M06.9 Rheumatoid arthritis, unspecified; E03.9 Hypothyroidism, unspecified; E21.3 Hyperparathyroidism, unspecified; K21.9 Gastro-esophageal reflux disease without esophagitis; E11.9 Type 2 diabetes mellitus without complications; R74.8 Abnormal levels of other serum enzymes; K80.20 Calculus of gallbladder without cholecystitis without obstruction; K59.00 Constipation, unspecified; E66.9 Obesity, unspecified; E73.9 Lactose intolerance, unspecified; Z96.651 Presence of right artificial knee joint; Z88.0 Allergy status to penicillin; Z88.1 Allergy status to other antibiotic agents; Z87.891 Personal history of nicotine dependence; Z82.5 Family history of asthma and other chronic lower respiratory diseases; Z83.3 Family history of diabetes mellitus

== ENCOUNTER 2016-11-14 11:21 | Day surgery (SDC) | payer MEDICARE, BC ==
[2016-11-06 13:46] VITALS: BMI 34.4
[2016-11-14] MEDS ORDERED: Midazolam 2 MG/2 ML VIAL ONE (12:49)
[2016-11-14] MEDS ORDERED: Propofol 10 mg/ml Inj (20 ML) ONE ×2 (12:49→13:27)
[2016-11-14] MEDS ORDERED: Sodium Chloride 0.9% 1,000 ML IV SCH (14:00)
[2016-11-14 14:43] VITALS: BP 137/67; PULSE 73; RESP 16; TEMP 97.7; O2SAT 95
== END 2016-11-14 15:44 | disposition home or self-care (01) ==
LOC: ENDO 11:21
PROVIDERS: ATTEND Internal Medicine Gastroenterology
DX: K63.5 Polyp of colon (principal); K62.1 Rectal polyp; K57.30 Diverticulosis of large intestine without perforation or abscess without bleeding; K64.9 Unspecified hemorrhoids; K21.0 Gastro-esophageal reflux disease with esophagitis; K29.70 Gastritis, unspecified, without bleeding; R19.4 Change in bowel habit; K44.9 Diaphragmatic hernia without obstruction or gangrene
CPT/HCPCS: 43239; 45380; 45381; 45385; 88305; 88312; 88342; J2001; J2250; J2704; J7040 ×2